=== PATIENT | female | born 1960 | race Two or more races ===

== ENCOUNTER 2020-07-18 09:57 | Outpatient (REF) | payer OTHER, SELFPAY ==
--- NOTE | 2020-07-18 10:31 | PM.OP ---
Brief Operative Note Date of Service: 07/18/20 Pre-op diagnosis: History of PTC, nontoxic multinodular goiter Post-op diagnosis: same Procedure: This procedure was explained to the patient. Alternatives, risks and benefits were discussed. Written consent was obtained. After sterile preparation of the skin, fine-needle aspiration biopsy of left mid pole thyroid nodule size 1.4 x 1.1 x 1.4 cm was performed under direct ultrasound guidance to confirm accurate needle placement. First pass was performed with a 27 gauge needle was only fluid aspiration about 0.5 mL of chocolate like call us with. Three extra passes were performed with 25 gauge needles. Sample was submitted to cytology, initial cytology reading was adequate. 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 Total of passes 5. Patient tolerated procedure well. Aftercare instructions were provided. Impression: uncomplicated fine-needle aspiration biopsy of left mid pole thyroid nodule under direct ultrasound guidance. Surgeon: Yoselyn Dia MD Anesthesia: local (Lidocaine 1 % 1ml) Estimated blood loss (mL): 0 Condition: stable Disposition: same day
[2020-07-18] MEDS: Lidocaine HCl 1 % MPF 5 ML VIAL SUBCUT (11:51)
== END 2020-07-18 09:58 | disposition home or self-care (01) ==
LOC: HO.US 09:57
PROVIDERS: Visit Provider Internal Medicine Endocrinology, Diabetes & Metabolism
DX: E04.2 Nontoxic multinodular goiter (principal)
CPT/HCPCS: 10005; 88172; 88173; 88177; 88305

== ENCOUNTER → 2021-01-07 14:50 | Outpatient (BNVA) | payer OTHER, SELFPAY | PROVIDERS: PCP Physician Assistant; Referring Provider Physician Assistant; Visit Provider Internal Medicine Endocrinology, Diabetes & Metabolism | DX: E11.65 Type 2 diabetes mellitus with hyperglycemia (principal); E11.21 Type 2 diabetes mellitus with diabetic nephropathy; E11.22 Type 2 diabetes mellitus with diabetic chronic kidney disease; N18.6 End stage renal disease; E04.2 Nontoxic multinodular goiter; Z79.4 Long term (current) use of insulin; Z85.850 Personal history of malignant neoplasm of thyroid | CPT/HCPCS: 82947; 99212 ==

== ENCOUNTER 2022-07-21 13:45 | Outpatient (REF) | payer OTHER, SELFPAY ==
--- NOTE | ~2022-07-21 | US_ITS ---
EXAMINATION: US THYROID CLINICAL INFORMATION: Nontoxic multinodular goiter. COMPARISON: Ultrasound soft tissue head/neck thyroid dated 05/09/2020 and 09/16/2017. TECHNIQUE: Linear transducer grayscale and color Doppler examination with attention to the region of the thyroid. FINDINGS: SIZE: Measurements of the solitary left thyroid lobe and nodules are given in sagittal, anteroposterior and transverse dimensions respectively. Right Thyroid Lobe: Surgically absent. Left Thyroid Lobe: 5.8 x 2.33 x 2.18 cm, volume 15.41 mL. Previously 5.76 x 2.24 x 2.47 cm, volume 16.7 mL. Parenchyma: The gland echotexture is homogeneous. Thyroid vascularity is normal. Isthmus: 0.62 cm in maximum AP dimension. Previously 0.46 cm. Estimated total number of nodules greater than or equal to 1 cm: 1. Book Jogger nodules are described as follows: 1. Location: Left mid. Size: 1.39 x 1.01 x 1.33 cm, volume 0.98 mL. Previously: 1.4 x 1.1 x 1.4 cm, volume 1.2 mL. Nodule characteristics: Composition: Mixed cystic and solid (1). Mainly cystic with thin septation. Echogenicity: Hypoechoic (2). Shape: Not taller than wide (0). Margins: Smooth (0). Echogenic Foci: None (0). ACR TI-RADS total points: 3 ACR TI-RADS category: 3 Significant change in size (>/= 20% in 2 dimensions and minimal increase of 2 mm or 50% or greater increase in volume): No Change in features: No Change in ACR TI-RADS risk category: N/A NODES: No lymphadenopathy is seen in the tissue surrounding the thyroid gland. US/US thyroid IMPRESSION: Status post right thyroidectomy. Stable left thyroid nodule with no continued follow-up of this nodule is recommended by ACR TI-RADS criteria. ACR TI-RADS RECOMMENDATION REFERENCE: * TR1 (0 point) and TR 2 (2 points): No FNA or follow up * TR3 (3 points): FNA if more than or equal to 2.5 cm in maximum dimension, followup ultrasound in 1, 3 and 5 years if 1.5 to 2.4 cm in maximum dimension. * TR4 (4-6 points): FNA if more than or equal to 1.5 cm in maximum dimension, followup ultrasound in 1, 2, 3 and 5 years if 1 to 1.4 cm in maximum dimension. * TR5 (more than or equal to 7 points): FNA if more than or equal to 1 cm in maximum dimension, followup ultrasound every year for 5 years if 0.5 to 0.9 cm in maximum dimension. * TR3, TR4 or TR5 nodules that are below the size threshold for follow up receive no follow up.
== END 2022-07-21 13:46 | disposition home or self-care (01) ==
LOC: HO.HMGCX 13:45
PROVIDERS: Visit Provider Internal Medicine Endocrinology, Diabetes & Metabolism
DX: E04.2 Nontoxic multinodular goiter (principal); E11.22 Type 2 diabetes mellitus with diabetic chronic kidney disease; N18.9 Chronic kidney disease, unspecified
CPT/HCPCS: 76536

== ENCOUNTER → 2022-07-30 15:02 | Outpatient (BNVA) | payer OTHER, SELFPAY | PROVIDERS: PCP Physician Assistant; Visit Provider Internal Medicine Endocrinology, Diabetes & Metabolism | DX: E11.22 Type 2 diabetes mellitus with diabetic chronic kidney disease (principal); E11.65 Type 2 diabetes mellitus with hyperglycemia; E11.21 Type 2 diabetes mellitus with diabetic nephropathy; I12.0 Hypertensive chronic kidney disease with stage 5 chronic kidney disease or end stage renal disease; N18.6 End stage renal disease; E78.5 Hyperlipidemia, unspecified; C73 Malignant neoplasm of thyroid gland; E89.0 Postprocedural hypothyroidism; Z79.4 Long term (current) use of insulin; Z99.2 Dependence on renal dialysis | CPT/HCPCS: 82947; 83036; 99212 ==

== ENCOUNTER → 2022-12-03 15:18 | Outpatient (BNVA) | payer MEDICAID, SELFPAY | PROVIDERS: PCP Physician Assistant; Visit Provider Internal Medicine Endocrinology, Diabetes & Metabolism | DX: E11.22 Type 2 diabetes mellitus with diabetic chronic kidney disease (principal); E11.65 Type 2 diabetes mellitus with hyperglycemia; E11.21 Type 2 diabetes mellitus with diabetic nephropathy; I12.0 Hypertensive chronic kidney disease with stage 5 chronic kidney disease or end stage renal disease; N18.6 End stage renal disease; Z85.850 Personal history of malignant neoplasm of thyroid; Z99.2 Dependence on renal dialysis; Z79.4 Long term (current) use of insulin | CPT/HCPCS: 82947; 83036; 99212 ==

== ENCOUNTER → 2023-01-28 11:40 | Outpatient (BNVA) | payer MEDICAID, SELFPAY | PROVIDERS: PCP Physician Assistant; Visit Provider Dietitian, Registered | DX: E11.22 Type 2 diabetes mellitus with diabetic chronic kidney disease (principal); N18.6 End stage renal disease | CPT/HCPCS: 97802 ==

== ENCOUNTER 2023-03-18 13:37 | Outpatient (AMB) | payer MEDICAID, SELFPAY ==
[2023-03-18 13:42] VITALS: BMI 53.1
--- NOTE | 2023-03-18 13:42 | MHC.AMNUTRGE ---
Intake VS Expanded 03/18/23 13:42 Height 4 ft 10 in Weight 254 lb 3.088 oz BMI 53.1 Intake Visit Reasons: T2DM Allergies cinacalcet [From SENSIPAR] Allergy (Unknown, Unverified 05/02/20 18:39) UNKNOWN Sensipar Allergy (Unknown, Uncoded 04/23/20 00:00) HPI Nutrition Presentation Details Pt presents for MNT for T2DM. Pt comes in with questions regarding sodium intake and low phosphorus food choices. Pt is also interested in losing weight . Pt verbalizes having elevated blood glucose > 200 after lunch. Pt reports having larger portions of starches at lunch time. Most Recent Diabetes Results: No Data to Display [facility] Medical History (Updated 01/07/21 @ 15:27 by Yoselyn Dia MD) Diabetes type 2, uncontrolled Diabetic nephropathy associated with type 2 diabetes mellitus ESRD (end stage renal disease) History of papillary adenocarcinoma of thyroid FCI (current) use of insulin Non-toxic multinodular goiter Type 2 diabetes mellitus with chronic kidney disease Family History Other Diabetes Hypertension Social History Household Members: Family Household Members Other:: Sons Alcohol intake: never Patient Tobacco Use Status: Never used Tobacco Assessment & Plan Assessment & Plan (1) Type 2 diabetes mellitus with chronic kidney disease: Code(s): E11.22 - Type 2 diabetes mellitus with diabetic chronic kidney disease Plan: Used wt: 114 kg Est kcal needs as per MSJ: 1921 (40% carb, 30% protein/fat) Est fluid needs as per 25 ml/d: 2863 (unless otherwise specified by MD Est prot per day as per 1 g/kg bw: 114 (unless otherwise specified by MD Recommend fiber intake : 8-10 g per day and gradually increaseas tolerated Recommend sodium intake per day : less than 2000 mg Educated patient on: ( R = reviewed V = verbalizes understanding N/R = needs review N/A = not applicable Food sources of carbohydrate, adequate serving sizes and its role in various health conditions: R Differences between complex carbohydrates a simple carbohydrates, role of fiber in diet: R Differences between types of fats and role in diet (mono on saturated fat fatty acids, saturated fatty acids, trans fats): R basic low fat, low fat options Food sources of sodium in salt and healthy modifications for heart health in kidney health: R , written info provided Vitamins and minerals: R Healthy plate method concept: R V Physical activity: Benefits a precaution: R Hypoglycemia protocol (rule of 15): NR Dietary prevention of Hyperglycemia: R Patient Instructions: Reduce portion of starch at lunch to 1/2 cup less - Reduzca el almidon a la hora del almuerzo por 1/2 taza menos (arroz/pasta/fabián/viandas) Choose low sodium food options (condiments with less sodium, sauces, breads,cheeses),- Escoja condimentos con menos vicki (adobos, salsas, panes, quesos) Choose grilled poultry/fish instead of breaded/fried - Escoja proteinas bajas en fosforo (claras de huevos, langostines, tuna, beatriz a la parilla , no empanados/fritos) Reduzca la frecuencia de comer comidas rapidas/fast foods Coding Level of Care Code Nutr Indiv Subseq (59076) Diagnoses Type 2 diabetes mellitus with chronic kidney disease E11.22 Time Spent (min) 30
== END 2023-03-18 14:17 | disposition home or self-care (01) ==
PROVIDERS: PCP Physician Assistant; Visit Provider Dietitian, Registered
DX: E11.22 Type 2 diabetes mellitus with diabetic chronic kidney disease (principal)

== ENCOUNTER → 2023-03-18 13:37 | Outpatient (BNVA) | payer MEDICAID, SELFPAY | PROVIDERS: PCP Physician Assistant; Visit Provider Dietitian, Registered | DX: E11.22 Type 2 diabetes mellitus with diabetic chronic kidney disease (principal); N18.9 Chronic kidney disease, unspecified | CPT/HCPCS: 97803 ==

== ENCOUNTER 2023-05-13 11:23 | Outpatient (AMB) | payer MEDICAID, SELFPAY ==
[2023-05-13 11:24] VITALS: BP 118/78; PULSE 66; BMI 53.2
--- NOTE | 2023-05-13 11:24 | MHC.OFFVIS ---
Intake Vital Signs 05/13/23 11:24 Height 4 ft 10 in Weight 254 lb 6.615 oz BMI 53.2 BP 118/78 Blood Pressure Location Rt brachial Position Sitting Pulse 66 Pulse Source Pulse Oximeter Intake Visit Reasons: DM, voicemail Intake Note: Patient present today to follow up on Type 2 Diabetes Mellitus. Last Diabetic Eye exam: 05/07/2023 Last Podiatry Visit: 05/07/2023 Random Glucose: 212 mg/dl HgA1C: 7.1% Cobol Engineer Required: Yes Cobol Engineer Language: Plastics Fab[employer]ation Supervisor Name: [id number] Information Interpreted: non-clinical & clinical Accompanied by: Self / Same As Patient Allergies cinacalcet [From SENSIPAR] Allergy (Unknown, Verified 05/13/23 11:31) UNKNOWN Sensipar Allergy (Unknown, Uncoded 05/13/23 11:31) Unknown Medication List - Last Reconciled 05/13/23 by Austin Burks MD B complex with C 20-folic acid 1 mg ([place] Caps) 1 cap PO DAILY blood sugar diagnostic (FreeStyle Lite Strips) 4 times a day carvedilol 12.5 mg PO BID cholecalciferol (vitamin D3) 50 mcg PO DAILY insulin glargine (Lantus Solostar U-100 Insulin) 25 units (0.25 mL) subcut BID insulin lispro (Humalog KwikPen (U-100) Insulin) 10 - 20 units (0.1 - 0.2 mL) subcut TID 90 days lancets (FreeStyle Lancets) 4 times a day losartan 100 mg PO DAILY losartan 25 mg PO DAILY pen needle, diabetic (BD Fern 2nd Gen Pen Needle) As directed 5 times a day HPI HPI Comments History of Present Illness Details 62 year old female, today for follow-up visit, for diabetes management in setting of ESRD. She is also being managed for micro papillary cancer She is feeling well, she has no complaints. He is on dialysis Wednesday, Wednesday and Fridays. She has DM type 2 diagnosed on 1999. She has PMH of hypertension, hyperlipidemia, and stage renal disease on hemodialysis M/W/F, secondary hyperparathyroidism, status post parathyroidectomy with transplant into the right brachioradialis muscle. 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 Osteopenia. She has all microvascular complications neuropathy , nephropathy and retinopathy. The patient is on Lantus 20 units in am, She is also on Humalog 12 units before breakfast and 16 with lunch, and 12 units with dinner. Meter download from 04/30/23-05/13/23 checking her blood sugar 4 times a day. showed an average blood sugar of 191 mg per dL. The range ar74-093 mg per dL. She is 41% in target range. And above range 56% of the time and no hypoglycemia. Pattern shows overnight hyperglycemia and after breakfast She checks blood sugars occasionally 1 hour after meals that are elevated. Her fasting blood sugars are most of the time at goal. She does have a spikes after meal particularly after breakfast. No hypoglycemia Last ophthalmology evaluation 1-2 wks a go : , pt denies retinopathy She is HD is anuric, polydipsia, denies numbness, tingling, blurred vision. She weighed 244 lb after dialysis yesterday. She had fine-needle aspiration of left nodule on 07/21/18 consistent with benign follicular nodule with cystic degeneration. 05/09/2020 US thyroid Right Thyroid Lobe: Surgically absent. No focal soft tissue or fluid collection within the right thyroidectomy bed. . Left Thyroid Lobe: 5.8 x 2.2 x 2.5 cm, volume 16.7 mL. Parenchyma: The gland echotexture is heterogeneous. Thyroid vascularity is normal. Isthmus: 0.5 cm in maximum AP dimension. RIGHT THYROID LOBE: No nodules. ISTHMUS: No nodules. LEFT THYROID LOBE: There is 1 nodule seen. 1. Location: Inferior. Size: 1.4 x 1.1 x 1.4 cm. Previously 1.2 x 0.9 x 1.0 cm Nodule characteristics: Hypoechoic nodule which contains some internal echogenicities and thin septation. No definitive color flow. NODES: No lymphadenopathy is seen in the tissue surrounding the thyroid gland. 05/11/2018 TSH 2.48 mIU per mL Free T4 1.17 ng per dL Thyroglobulin level is 7 ng per mL Antithyroglobulin antibody negative. 08/30/2019 TSH 2.71 miu/ml FT4 1.18 ng/dl TG level 6.5 TG antibodies negative LDL cholesterol direct 118 mg per dL Total cholesterol 188 mg/dL Triglycerides 169 mg/dL HDL cholesterol 33 mg/dL. 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 Absence of acromegalic features. Neck exam reveals s/p right lobectomy. No left thyroid nodules palpable. No carotid bruits present. Lungs CTA. Heart S1 S2, Reg R/R. No M/R/ G. Skin exam reveals absence of vitiligo or acanthosis nigricans. Abdominal exam reveals Soft NT/ND with NA BS. No organomegaly present. Neck Other: . Extrem Other: Visual exam of foot performed. No ulcerations or open lesions. No onchomycosis, no callouses.Pulses 2 + distally Sensation intact to monofilament exam. Vibratory sensation sensed is intact with 128 Hz tuning fork Results AMB Hemoglobin A1c AMB Hemoglobin A1c 7.1 % Last Edit by Emilee Castellanos on 05/13/23 11:44 Results Reviewed Results Reviewed: 05/13/23 11:34 Glucose, Whole Blood Routine Laboratory Last Values Glucose (Clinic) 212 mg/dL (60-115) H 05/13/23 11:34 Hgb A1c (Clinic) 7.1 % (4.0-6.0) H 05/13/23 11:37 Assessment & Plan Assessment & Plan (1) Type 2 diabetes mellitus with chronic kidney disease: Code(s): E11.22 - Type 2 diabetes mellitus with diabetic chronic kidney disease Plan: This 62-year-old female with history of type 2 diabetes in the setting of end-stage renal disease on hemodialysis being treated with basal- bolus insulin good improved glycemic control and known microvascular complications namely end-stage renal disease and retinopathy.HBAIC may not be reflective of control in ESRD Plan is to continue the current management. Difficult to adjust insulin regimen without sensor . Start and Dexcom G7 and then will adjust insulin regimen accordingly (2) History of papillary adenocarcinoma of thyroid: Code(s): Z85.850 - Personal history of malignant neoplasm of thyroid Plan: Status post right lobectomy the presence of micro papillary cancer. Status post FNA of left thyroid nodule with benign cytology. Recent ultrasound shows stability in the size of the nodules left lobe. Patient appears clinically and biochemically euthyroid. Plan is to continue the current treatment Orders: Orders AMB Hemoglobin A1c Today E11.22 - Type 2 diabetes mellitus with diabetic chronic kidney disease Medications: New blood-glucose sensor (Dexcom G7 Sensor device) As directed change every 10 days 3 ea 5RF Coding Level of Care Code Est Pt Level 4 (62857) Diagnoses Type 2 diabetes mellitus with chronic kidney disease E11.22 History of papillary adenocarcinoma of thyroid Z85.850
[2023-05-13 11:39] LABS: Glucose, Whole Blood 212 mg/dL (60-115)
--- NOTE | 2023-05-13 12:57 | AM.OFFVISNUR ---
Intake Vital Signs 05/13/23 11:24 Height 4 ft 10 in Weight 254 lb 6.615 oz BMI 53.2 BP 118/78 Blood Pressure Location Rt brachial Position Sitting Pulse 66 Pulse Source Pulse Oximeter Intake Visit Reasons: DM, voicemail Allergies cinacalcet [From SENSIPAR] Allergy (Unknown, Verified 05/13/23 11:31) UNKNOWN Sensipar Allergy (Unknown, Uncoded 05/13/23 11:31) Unknown Medication List - Last Reconciled 05/13/23 by Austin Burks MD B complex with C 20-folic acid 1 mg ([place] Caps) 1 cap PO DAILY blood sugar diagnostic (FreeStyle Lite Strips) 4 times a day carvedilol 12.5 mg PO BID cholecalciferol (vitamin D3) 50 mcg PO DAILY insulin glargine (Lantus Solostar U-100 Insulin) 25 units (0.25 mL) subcut BID insulin lispro (Humalog KwikPen (U-100) Insulin) 10 - 20 units (0.1 - 0.2 mL) subcut TID 90 days lancets (FreeStyle Lancets) 4 times a day losartan 100 mg PO DAILY losartan 25 mg PO DAILY pen needle, diabetic (BD Fern 2nd Gen Pen Needle) As directed 5 times a day Nursing Note I met with the patient after Dr. Burks finished the visit to educate her on how to apply the Dexcom G7. We discussed the proper cleansing of the skin, how to apply SkinTac, insertion of the sensor and how to initiate sensor warm up. We discussed that she can bathe with it on and that it is to be changed every 10 days. We applied her first sensor and initiated the warm up. Patient will follow up with Yesenia, our Project Management Manager, before her next visit with Dr. Burks. Patient provided verbal teach-back and says she will call with further questions. Results AMB Hemoglobin A1c AMB Hemoglobin A1c 7.1 % Last Edit by Emilee Castellanos on 05/13/23 11:44 Coding Diagnoses Type 2 diabetes mellitus with chronic kidney disease E11.22 History of papillary adenocarcinoma of thyroid Z85.850 Assessment & Plan Assessment & Plan (1) Type 2 diabetes mellitus with chronic kidney disease: Code(s): E11.22 - Type 2 diabetes mellitus with diabetic chronic kidney disease (2) History of papillary adenocarcinoma of thyroid: Code(s): Z85.850 - Personal history of malignant neoplasm of thyroid Orders: Orders AMB Hemoglobin A1c Today E11.22 - Type 2 diabetes mellitus with diabetic chronic kidney disease Medications: New blood-glucose sensor (Dexcom G7 Sensor device) As directed change every 10 days 3 ea 5RF
== END 2023-05-13 13:31 | disposition home or self-care (01) ==
PROVIDERS: PCP Physician Assistant; Visit Provider Internal Medicine Endocrinology, Diabetes & Metabolism
DX: E11.22 Type 2 diabetes mellitus with diabetic chronic kidney disease (principal); Z85.850 Personal history of malignant neoplasm of thyroid
CPT/HCPCS: 99214

== ENCOUNTER → 2023-05-13 11:23 | Outpatient (BNVA) | payer MEDICAID, SELFPAY | PROVIDERS: Visit Provider Internal Medicine Endocrinology, Diabetes & Metabolism | DX: E11.22 Type 2 diabetes mellitus with diabetic chronic kidney disease (principal); N18.6 End stage renal disease; Z85.850 Personal history of malignant neoplasm of thyroid | CPT/HCPCS: 82947; 83036; 99212 ==

== ENCOUNTER 2023-06-15 11:59 | Outpatient (AMB) | payer MEDICAID, SELFPAY ==
--- NOTE | 2023-06-15 12:51 | MHC.AMNUTRGE ---
Intake Intake Visit Reasons: t2dm Allergies cinacalcet [From SENSIPAR] Allergy (Unknown, Verified 05/13/23 11:31) UNKNOWN Sensipar Allergy (Unknown, Uncoded 05/13/23 11:31) Unknown HPI Nutrition Presentation Details Pt presents for MNT f/u for T2DM on hemodialysis Pt reports doing well, having a better understanding of food portion and choices since utilizing glucose sensor. Pt reports needing review on treatment of low blood glucose level Most Recent Diabetes Results: No Data to Display [facility] Medical History (Updated 01/07/21 @ 15:27 by Yoselyn Dia MD) History of papillary adenocarcinoma of thyroid snf (current) use of insulin Diabetic nephropathy associated with type 2 diabetes mellitus ESRD (end stage renal disease) Type 2 diabetes mellitus with chronic kidney disease Diabetes type 2, uncontrolled Non-toxic multinodular goiter Family History Other Diabetes Hypertension Social History Household Members: Family Household Members Other:: Sons Alcohol intake: never Patient Tobacco Use Status: Never used Tobacco Assessment & Plan Assessment & Plan (1) Type 2 diabetes mellitus with chronic kidney disease: Code(s): E11.22 - Type 2 diabetes mellitus with diabetic chronic kidney disease Plan: Used wt: 114 kg Est kcal needs as per MSJ: 1921 (40% carb, 30% protein/fat) Est fluid needs as per 25 ml/d: 2863 (unless otherwise specified by MD Est prot per day as per 1 g/kg bw: 114 (unless otherwise specified by MD Recommend fiber intake : 8-10 g per day and gradually increaseas tolerated Recommend sodium intake per day : less than 2000 mg Educated patient on: ( R = reviewed V = verbalizes understanding N/R = needs review N/A = not applicable Food sources of carbohydrate, adequate serving sizes and its role in various health conditions: R Differences between complex carbohydrates a simple carbohydrates, role of fiber in diet: R Differences between types of fats and role in diet (mono on saturated fat fatty acids, saturated fatty acids, trans fats): R basic low fat, low fat options Food sources of sodium in salt and healthy modifications for heart health in kidney health: R , written info provided Vitamins and minerals: R Healthy plate method concept: R V Physical activity: Benefits a precaution: R Hypoglycemia protocol (rule of 15): R, V- written information provided Dietary prevention of Hyperglycemia: R Patient Instructions: Carry glucose tablets or glucose gel or applesauce to treat low blood sugar , blood sugar level below 70 by following rule of 15. Contact your doctor and notify of low blood sugar level for further assessment . Coding Level of Care Code Nutr Indiv Subseq (11304) Diagnoses Type 2 diabetes mellitus with chronic kidney disease E11.22 Time Spent (min) 20
== END 2023-06-15 12:54 | disposition home or self-care (01) ==
PROVIDERS: PCP Physician Assistant; Visit Provider Dietitian, Registered
DX: E11.22 Type 2 diabetes mellitus with diabetic chronic kidney disease (principal)

== ENCOUNTER → 2023-06-15 11:59 | Outpatient (BNVA) | payer MEDICAID, SELFPAY | PROVIDERS: PCP Physician Assistant; Visit Provider Dietitian, Registered | DX: E11.22 Type 2 diabetes mellitus with diabetic chronic kidney disease (principal); N18.6 End stage renal disease; Z79.4 Long term (current) use of insulin; Z99.2 Dependence on renal dialysis | CPT/HCPCS: 97803 ==

== ENCOUNTER 2023-11-11 13:57 | Outpatient (AMB) | payer MEDICAID, SELFPAY ==
--- NOTE | 2023-11-11 14:06 | A.OFFVIS_ITS ---
Intake VS Expanded 11/11/23 14:07 Height 4 ft 10 in Weight 250 lb 10.649 oz BMI 52.4 Intake Visit Reasons: DM/CONFIRMED Allergies cinacalcet [From SENSIPAR] Allergy (Unknown, Verified 05/13/23 11:31) UNKNOWN Sensipar Allergy (Unknown, Uncoded 05/13/23 11:31) Unknown HPI Nutrition Presentation Details Pt presents for MNT for T2DM on hemodialysis. 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 Diabetic nephropathy associated with type 2 diabetes mellitus ESRD (end stage renal disease) Type 2 diabetes mellitus with chronic kidney disease Diabetes type 2, uncontrolled Non-toxic multinodular goiter Family History Other Diabetes Hypertension Social History Household Members: Family Household Members Other:: Sons Alcohol intake: never Patient Tobacco Use Status: Never used Tobacco Assessment & Plan Assessment & Plan (1) Type 2 diabetes mellitus with chronic kidney disease: Code(s): E11.22 - Type 2 diabetes mellitus with diabetic chronic kidney disease Plan: Used wt: 114 kg Est kcal needs as per MSJ: 1921 (40% carb, 30% protein/fat) Est fluid needs as per 25 ml/d: 2863 (unless otherwise specified by MD Est prot per day as per 1 g/kg bw: 114 (unless otherwise specified by MD Recommend fiber intake : 8-10 g per day and gradually increaseas tolerated Recommend sodium intake per day : less than 2000 mg Educated patient on: ( R = reviewed V = verbalizes understanding N/R = needs review N/A = not applicable * Food sources of carbohydrate, adequate serving sizes and its role in various health conditions: R * Differences between complex carbohydrates a simple carbohydrates, role of fiber in diet: R * Differences between types of fats and role in diet (mono on saturated fat fatty acids, saturated fatty acids, trans fats): R basic low fat, low fat options * Food sources of sodium in salt and healthy modifications for heart health in kidney health: R , written info provided * Vitamins and minerals: R * Healthy plate method concept: R V * Physical activity: Benefits a precaution: R * Hypoglycemia protocol (rule of 15): R, V- written information provided * Dietary prevention of Hyperglycemia: R Patient Instructions: Follow low sodium food concepts - see written info as reference Aim at having 3 fruits per day in place of starches/pastries for low sodium food Coding Level of Care Code Nutr Indiv Subseq (54174) Diagnoses Type 2 diabetes mellitus with chronic kidney disease E11.22 Time Spent (min) 15
[2023-11-11 14:07] VITALS: BMI 52.4
== END 2023-11-11 14:33 | disposition home or self-care (01) ==
PROVIDERS: PCP Physician Assistant; Visit Provider Dietitian, Registered
DX: E11.22 Type 2 diabetes mellitus with diabetic chronic kidney disease (principal)

== ENCOUNTER → 2023-11-11 13:57 | Outpatient (BNVA) | payer MEDICAID, SELFPAY | PROVIDERS: PCP Physician Assistant; Visit Provider Dietitian, Registered | DX: I12.9 Hypertensive chronic kidney disease with stage 1 through stage 4 chronic kidney disease, or unspecified chronic kidney disease (principal); N18.9 Chronic kidney disease, unspecified; Z99.2 Dependence on renal dialysis | CPT/HCPCS: 97803 ==

== ENCOUNTER 2023-12-07 15:40 | Outpatient (AMB) | payer MEDICAID, SELFPAY ==
--- NOTE | 2023-12-07 16:31 | MHC.AMDMED ---
Intake Intake Visit Reasons: T2DM Pneumatic Tube Fitter Required: Yes Pneumatic Tube Fitter Language: Conservation Enforcement Officer Name: Niki [facility] [place] Information Interpreted: non-clinical & clinical Allergies cinacalcet [From SENSIPAR] Allergy (Unknown, Verified 05/13/23 11:31) UNKNOWN Sensipar Allergy (Unknown, Uncoded 05/13/23 11:31) Unknown HPI Comprehensive Diabetes Asmnt Most Recent Diabetes Results: No Data to Display [facility] Medical History (Updated 01/07/21 @ 15:27 by Yoselyn Dia MD) History of papillary adenocarcinoma of thyroid residential (current) use of insulin Diabetic nephropathy associated with type 2 diabetes mellitus ESRD (end stage renal disease) Type 2 diabetes mellitus with chronic kidney disease Diabetes type 2, uncontrolled Non-toxic multinodular goiter Family History Other Diabetes Hypertension Social History Household Members: Family Household Members Other:: Sons Alcohol intake: never Patient Tobacco Use Status: Never used Tobacco Assessment & Plan Assessment & Plan (1) Type 2 diabetes mellitus with chronic kidney disease: Code(s): E11.22 - Type 2 diabetes mellitus with diabetic chronic kidney disease Plan: Patient at visit to set up an insert Dexcom G7 Instructed patient sensors water proof you can shower, or swim do not submerge sensor in water for over 30 minutes Is sensor falls off cannot put back in you need to replace sensor, customer service number given to patient for sensor replacement Sensor placed on the right arm Patient left visit with sensor in warmup Learning objectives: The patient was provided with verbal and written education on the following topics as outlined below. Blood glucose monitoring When/how often to test Target blood sugar ranges Freestyle meter Introduction to Nutrition Importance of healthy diet in managing DM Diet is personalized to individual preference Review patient?s regular diet/food preferences Who prepares meals/does food shopping/ Dining out?/ Barriers? How diet effects glucose Eating 3 balanced meals a day with small, healthy snacks between meals Review food groups Carbohydrates: What is a carbohydrate/Which food/food groups are considered carbohydrates Effect of carbohydrates on blood glucose Portion sizes Reading food labels Basic carb counting (if applicable per nursing assessment) Plate method Meal planning Recommendations: Follow plate method, consistent carbs and read nutritional labels. Smart Goal: Patient will use rule of 15 to treat hypoglycemia Educational Materials: The patient was provided with the following written educational materials: Planning Healthy Meals Handout Patient Response to instructions: Comprehension of Instructions: Fair Readiness to make changes: Contemplation How confident they feel about making changes: Positive Reviewed how to interpret trend arrows Reminded patient that to check finger sticks if symptoms do not match sensor reading. Discussed lag time between finger stick and sensor data.? Instructed patient she should always keep blood glucometer for backup testing if needed Reviewed delay of CGM from fingersticks Reminded pt that if symptoms do not match sensor still needs to check fingersticks. With specialty finishing utility person in 2 weeks Patient Instructions: Instrucciones para el paciente: CGM proporciona informaci?n sobre el control de la glucosa en kelli a lo ankur del d?a, incluidas la hiperglucemia y la hipoglucemia. Contin?e controlando la glucosa en kelli seg?n las instrucciones. Siga las pautas de nutrici?n proporcionadas. Informe cualquier molestia de inmediato al proveedor de atenci?n m?dica. Mantente maciej hidratado. Puede ba?arse, ducharse, nadar y hacer ejercicio mientras usa el sensor de glucosa. No sumerja el sensor de glucosa en agua jacklyn m?s de 30 minutos. Retire el sensor para goldy resonancia magn?romeo o goldy tomograf?a computarizada. Evite la m?quina de migdalia X en los aeropuertos: retire el sensor o solicite la varita Coding Level of Care Code Est Pt Level 1 (19336) Diagnoses Type 2 diabetes mellitus with chronic kidney disease E11.22
== END 2023-12-07 16:38 | disposition home or self-care (01) ==
PROVIDERS: PCP Physician Assistant; Visit Provider Registered Nurse Diabetes Educator
DX: E11.22 Type 2 diabetes mellitus with diabetic chronic kidney disease (principal)

== ENCOUNTER → 2023-12-07 15:40 | Outpatient (BNVA) | payer MEDICAID, SELFPAY | PROVIDERS: PCP Physician Assistant; Visit Provider Registered Nurse Diabetes Educator | DX: E11.22 Type 2 diabetes mellitus with diabetic chronic kidney disease (principal); N18.9 Chronic kidney disease, unspecified; Z71.89 Other specified counseling | CPT/HCPCS: 99211 ==

== ENCOUNTER 2023-12-21 14:03 | Outpatient (AMB) | payer MEDICAID, SELFPAY ==
--- NOTE | 2023-12-21 14:24 | A.OFFVIS_ITS ---
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 Diabetic nephropathy associated with type 2 diabetes mellitus ESRD (end stage renal disease) Type 2 diabetes mellitus with chronic kidney disease Diabetes type 2, uncontrolled Non-toxic multinodular goiter Family History Other Diabetes Hypertension Social History Household Members: Family Household Members Other:: Sons Alcohol intake: never Patient Tobacco Use Status: Never used Tobacco Assessment & Plan Assessment & Plan (1) Diabetic nephropathy associated with type 2 diabetes mellitus: Code(s): E11.21 - Type 2 diabetes mellitus with diabetic nephropathy Plan: Learning objectives: The patient was provided with verbal and written education on the following topics as outlined below. Assess patient education level/literacy/barriers Patient questions/concerns patient has been wearing Dexcom G7 sensor for approximately 2 weeks The last 14 days patient's average glucose within 191 mg/dL Patient above target 58% Patient at target 42% Patient below target 0% Patient did report 1 night about an hour and half after supper her glucose had still been elevated so she gave herself extra Humalog, at approximately 04:00 she woke up with glucose of 62 mg/dL Reviewed with patient action of Humalog, and Lantus instructed patient not to give 2 doses of Humalog within 3 hours of each other. Patient did request sliding scale, message sent to Dr. Burks to develop patient's sliding scale The patient met all learning objectives and was able to verbalize understanding and provide teach back of education topics discussed . The patient was provided with the opportunity to ask questions and all questions were answered. Topics covered in today?s session included: Medications (If applicable) * Name of medication? * Dosing/administration instructions? * Mechanism of action? * Potential side effects? * Potential adverse reaction and appropriate treatment? * Review onset, peak, duration Assess for concerns re: insurance coverage, cost, barriers to compliance Insulin/Injectables (If applicable) * Storage/care of insulin?? * Injection sites? * Site rotation? * Onset, peak, duration * Drawing up insulin? * Injecting insulin/other injectables? * Sharps disposal Continuous blood glucose monitoring (if applicable) Hypoglycemia and Hyperglycemia * Signs and symptoms? * Causes?? * Treatment? * Preventing hypoglycemia? * When to seek medical attention * Blood glucose targets and how you feel when your blood glucose is in and out of your target ranges. * Monitoring and knowing your A1C. * What can make blood glucose go up and down and preventing high and low blood glucose. * Review of blood sugar targets in expected goal range and outside of expected goal range. * Problem solving and preventing hyper/hypoglycemia. * Sick day management of diabetes. * Using blood sugar results in decision making process in managing diabetes. ?Patient was receptive to information provided and participated in the discussion. Asked?appropriate questions and demonstrated good understanding of the topics discussed.? ? Educational Materials: The patient was provided with the following written educational materials: Rule of 15 handout given in Sammarinese Patient Response to instructions: Comprehension of Instructions: Good Readiness to make changes:? Contemplative How confident they feel about making changes: Positive Patient Instructions: Cada chris 2 dosis de Humalog con un intervalo de 3 horas entre s?. Utilice la tori del 15 para tratar cualquier hipoglucemia. Seguimiento con enfermera de Educaci?n en Diabetes en 1 mes Coding Level of Care Code Est Pt Level 1 (00020) Diagnoses Diabetic nephropathy associated with type 2 diabetes mellitus E11.21
== END 2023-12-21 14:51 | disposition home or self-care (01) ==
PROVIDERS: PCP Physician Assistant; Visit Provider Registered Nurse Diabetes Educator
DX: E11.21 Type 2 diabetes mellitus with diabetic nephropathy (principal)

== ENCOUNTER → 2023-12-21 14:03 | Outpatient (BNVA) | payer MEDICAID, SELFPAY | PROVIDERS: PCP Physician Assistant; Visit Provider Registered Nurse Diabetes Educator | DX: E11.21 Type 2 diabetes mellitus with diabetic nephropathy (principal) | CPT/HCPCS: 99211 ==

== ENCOUNTER 2024-01-25 13:29 | Outpatient (AMB) | payer MEDICAID, SELFPAY ==
--- NOTE | 2024-01-25 14:06 | MHC.AMDMED ---
Intake Intake Visit Reasons: 60 min, insulin plan Lean Process Deployment Consultant Required: Yes Lean Process Deployment Consultant Language: Juvenile Corrections Officer Name: Niki Allergies cinacalcet [From SENSIPAR] Allergy (Unknown, Verified 05/13/23 11:31) UNKNOWN Sensipar Allergy (Unknown, Uncoded 05/13/23 11:31) Unknown HPI Comprehensive Diabetes Asmnt Most Recent Diabetes Results: No Data to Display [facility] Medical History (Updated 01/07/21 @ 15:27 by Yoselyn Dia MD) History of papillary adenocarcinoma of thyroid shelter (current) use of insulin Diabetic nephropathy associated with type 2 diabetes mellitus ESRD (end stage renal disease) Type 2 diabetes mellitus with chronic kidney disease Diabetes type 2, uncontrolled Non-toxic multinodular goiter Family History Other Diabetes Hypertension Social History Household Members: Family Household Members Other:: Sons Alcohol intake: never Patient Tobacco Use Status: Never used Tobacco Assessment & Plan Assessment & Plan (1) Diabetic nephropathy associated with type 2 diabetes mellitus: Code(s): E11.21 - Type 2 diabetes mellitus with diabetic nephropathy Plan: Personal Continuous Glucose Monitor: Patients CGM information reviewed Reviewed patient's sensor data: Hypoglycemia: ? 0% Hyperglycemia:? 58% Time in Range:? 42% Average glucose for the last 2 weeks?203 mg/dL Patient is having postprandial hyperglycemia after lunch and throughout the evening New sliding scale was mailed to patient's home address however patient denies ever receiving it Copies sliding scale given at today's visit Reviewed with patient how to use sliding scale, and rule of 15s to treat hypoglycemia Reviewed target glucose numbers, patient is overdue for A1c but coming appointment with Dr. Burks in 02/2024 Patient also given carbohydrate list, and target goal handout in Georgian Reviewed how to interpret trend arrows Reminded patient that to check finger sticks if symptoms do not match sensor reading. Discussed lag time between finger stick and sensor data.? Patient able to insert sensor independently at home without issue.? Patient will follow-up with focuser in 2 months Use a Humalog scale before meals 81-150 8 units 151-200 10 units 201-250 12 units >250 14 units Portions of this note were created using voice recognition software, please excuse any words or phrases that may have been misinterpreted. Patient Instructions: B?scula Humalog antes de las comidas. 81-150 isrrael 8 unidades 151-200 isrrael 10 unidades 201-250 isrrael 12 unidades M?s de 250 tomar14 unidades Coding Level of Care Code Est Pt Level 1 (39249) Diagnoses Diabetic nephropathy associated with type 2 diabetes mellitus E11.21
== END 2024-01-25 14:10 | disposition home or self-care (01) ==
PROVIDERS: PCP Physician Assistant; Visit Provider Registered Nurse Diabetes Educator
DX: E11.21 Type 2 diabetes mellitus with diabetic nephropathy (principal)

== ENCOUNTER → 2024-01-25 13:29 | Outpatient (BNVA) | payer MEDICAID, SELFPAY | PROVIDERS: PCP Physician Assistant; Visit Provider Registered Nurse Diabetes Educator | DX: E11.21 Type 2 diabetes mellitus with diabetic nephropathy (principal) | CPT/HCPCS: 99211 ==

== ENCOUNTER 2024-02-10 12:40 | Outpatient (AMB) | payer MEDICAID, SELFPAY ==
[2024-02-10 12:57] VITALS: BMI 52.3
--- NOTE | 2024-02-10 12:57 | MHC.AMNUTRGE ---
VS Expanded 02/10/24 12:57 Height 4 ft 10 in Weight 250 lb 7.122 oz BMI 52.3 Intake Visit Reasons: T2DM/LVM Allergies cinacalcet [From SENSIPAR] Allergy (Unknown, Verified 05/13/23 11:31) UNKNOWN Sensipar Allergy (Unknown, Uncoded 05/13/23 11:31) Unknown Nutrition Presentation Details: Pt presents for MNT f/u for T2DM Pt reports needing review on reading food labels BS Monitoring Most Recent Diabetes Results: No Data to Display [facility] Medical History (Updated 01/07/21 @ 15:27 by Yoselyn Dia MD) History of papillary adenocarcinoma of thyroid half-way (current) use of insulin Diabetic nephropathy associated with type 2 diabetes mellitus ESRD (end stage renal disease) Type 2 diabetes mellitus with chronic kidney disease Diabetes type 2, uncontrolled Non-toxic multinodular goiter Family History Other Diabetes Hypertension Social History Household Members: Family Household Members Other:: Sons Alcohol intake: never Patient Tobacco Use Status: Never used Tobacco Assessment & Plan Assessment & Plan (1) Type 2 diabetes mellitus with chronic kidney disease: Code(s): E11.22 - Type 2 diabetes mellitus with diabetic chronic kidney disease Category: Medical Plan: Used wt: 114 kg Est kcal needs as per MSJ: 1921 (40% carb, 30% protein/fat) Est fluid needs as per 25 ml/d: 2863 (unless otherwise specified by Est prot per day as per 1 g/kg bw: 114 (unless otherwise specified by MD Recommend fiber intake : 8-10 g per day and gradually increaseas tolerated Recommend sodium intake per day : less than 2000 mg Educated patient on: ( R = reviewed V = verbalizes understanding N/R = needs review N/A = not applicable Food sources of carbohydrate, adequate serving sizes and its role in various health conditions: R Differences between complex carbohydrates a simple carbohydrates, role of fiber in diet: R Differences between types of fats and role in diet (mono on saturated fat fatty acids, saturated fatty acids, trans fats): R basic low fat, low fat options Food sources of sodium in salt and healthy modifications for heart health in kidney health: R , written info provided Vitamins and minerals: R Healthy plate method concept: R V Physical activity: Benefits a precaution: R Hypoglycemia protocol (rule of 15): R, V- written information provided Dietary prevention of Hyperglycemia: R Patient Instructions: Have a salad with lean protein at lunch time 3 times a week Reduce on high salt/sodium foods - read food label, limiting sodium for the day to less than 1800 mg or as specified by your specialty finishing utility person Coding Level of Care Code Nutr Indiv Subseq (42916) Diagnoses Type 2 diabetes mellitus with chronic kidney disease E11.22 Time Spent (min) 20
== END 2024-02-10 13:37 | disposition home or self-care (01) ==
PROVIDERS: PCP Physician Assistant; Visit Provider Dietitian, Registered
DX: E11.22 Type 2 diabetes mellitus with diabetic chronic kidney disease (principal)

== ENCOUNTER → 2024-02-10 12:40 | Outpatient (BNVA) | payer MEDICAID, SELFPAY | PROVIDERS: PCP Physician Assistant; Visit Provider Dietitian, Registered | DX: E11.65 Type 2 diabetes mellitus with hyperglycemia (principal); E11.21 Type 2 diabetes mellitus with diabetic nephropathy; E11.22 Type 2 diabetes mellitus with diabetic chronic kidney disease; N18.6 End stage renal disease; Z71.3 Dietary counseling and surveillance | CPT/HCPCS: 97803 ==

== ENCOUNTER 2024-03-16 13:03 | Outpatient (AMB) | payer MEDICAID, SELFPAY ==
--- NOTE | 2024-03-16 13:07 | A.OFFVIS_ITS ---
Vital Signs 03/16/24 13:11 Height 4 ft 10 in Weight 244 lb 11.41 oz BMI 51.1 BP 116/86 Blood Pressure Location Rt brachial Pulse 65 Pulse Source Pulse Oximeter Intake Visit Reasons: DM/LVM Intake Note: Patient presents today to establish treatment for Type 2 Diabetes Mellitus: Last Diabetic Eye exam: 02/14/2024, No sign of diabetic retinopathy Last Podiatry Exam: Does not see a Equal Employment Opportunity Officer Most recent HbA1c: 7.1%, 03/16/2024 Random Glucose- 143 mg/dL, Today Dental Technician Required: Yes Dental Technician Language: Director Of Vendor Management Services: Dental Technician Present Dental Technician Name: [facility] [place] Dental Technician Information Interpreted: non-clinical & clinical Accompanied by: Self / Same As Patient Allergies cinacalcet [From SENSIPAR] Allergy (Unknown, Verified 03/16/24 13:08) UNKNOWN Sensipar Allergy (Unknown, Uncoded 03/16/24 13:08) Unknown HPI Comments Details: 63 year old female, today for follow-up visit, for diabetes management in setting of ESRD. She is also being managed for micro papillary cancer She is feeling well, she has no complaints. She is on dialysis Wednesday, Wednesday and Fridays. She has DM type 2 diagnosed on 1999. She has PMH of hypertension, hyperlipidemia, and stage renal disease on h emodialysis M/W/F, secondary hyperparathyroidism, status post parathyroidectomy with transplant into the right brachioradialis muscle. 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 Osteopenia. She has all microvascular complications neuropathy , nephropathy and retinopathy. Current medications Lantus 22 unit Humalog scale before meals 81-150 8 units 151-200 10 units 201-250 12 units >250 14 units she typically adds 2-4 units later in the da No hypoglycemia Last ophthalmology evaluation uptodate , pt denies retinopathy She is HD is anuric, polydipsia, denies numbness, tingling, blurred vision. she has podiatry scheduled this week, She had fine-needle aspiration of left nodule on 07/21/18 consistent with benign follicular nodule with cystic degeneration. 05/09/2020 US thyroid Right Thyroid Lobe: Surgically absent. No focal soft tissue or fluid collection within the right thyroidectomy bed. . Left Thyroid Lobe: 5.8 x 2.2 x 2.5 cm, volume 16.7 mL. Parenchyma: The gland echotexture is heterogeneous. Thyroid vascularity is normal. Isthmus: 0.5 cm in maximum AP dimension. RIGHT THYROID LOBE: No nodules. ISTHMUS: No nodules. LEFT THYROID LOBE: There is 1 nodule seen. 1. Location: Inferior. Size: 1.4 x 1.1 x 1.4 cm. Previously 1.2 x 0.9 x 1.0 cm Nodule characteristics: Hypoechoic nodule which contains some internal echogenicities and thin septation. No definitive color flow. NODES: No lymphadenopathy is seen in the tissue surrounding the thyroid gland. 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 Diabetic nephropathy associated with type 2 diabetes mellitus ESRD (end stage renal disease) Type 2 diabetes mellitus with chronic kidney disease Diabetes type 2, uncontrolled Non-toxic multinodular goiter Family History Other Diabetes Hypertension Social History Household Members: Family Household Members Other:: Sons Alcohol intake: never Patient Tobacco Use Status: Never used Tobacco Physical Exam Vital Signs: Last Vital Signs Pulse 65 03/16/24 13:11 BP 116/86 03/16/24 13:11 BMI result Body Mass Index 51.1 Neck Other: no masses of adenopathy Neck: Yes normal visual inspection Resp Effort & Inspection: normal respiratory effort Extrem Other: no edema exam deferred seeing pod tomorrow. Results AMB Hemoglobin A1c AMB Hemoglobin A1c 7.1 % Last Edit by VINICIUS Ortega on 03/16/24 13:29 Results Reviewed Results Reviewed: Laboratory Last Values Glucose (Clinic) 143 mg/dL (60-115) H 03/16/24 13:20 Hgb A1c (Clinic) 7.1 % (4.0-6.0) H 03/16/24 13:24 Assessment & Plan Assessment & Plan (1) Type 2 diabetes mellitus with chronic kidney disease: Code(s): E11.22 - Type 2 diabetes mellitus with diabetic chronic kidney disease Category: Medical Plan: Lantus 22 unit-> Tresiba 22 units for more consistent coverage of basal Humalog scale before meals 81-150 10 units 151-200 12 units 201-250 14 units >250 16units SHe was asked to call our office if running high or low directions written given in nepali Orders: Orders Lipid Panel Today E11.21 - Type 2 diabetes mellitus with diabetic nephropathy Thyroid Stimulating Hormone Today E11.21 - Type 2 diabetes mellitus with diabetic nephropathy Creatinine Urine Today E11.21 - Type 2 diabetes mellitus with diabetic nephropathy TSH reflex Free T4 Today E11.21 - Type 2 diabetes mellitus with diabetic nephropathy AMB Hemoglobin A1c Today E11.9 - Type 2 diabetes mellitus without complications Comprehensive Met. Panel Today E11.21 - Type 2 diabetes mellitus with diabetic nephropathy Microalbumin, Random (w Creat) Today E11.21 - Type 2 diabetes mellitus with diabetic nephropathy Medications: New insulin degludec (Tresiba FlexTouch U-200 insulin) 22 units (0.11 mL) subcut DAILY 30 days 3.3 mL 0RF Refilled blood-glucose sensor ([employer] G7 Sensor device) As directed change every 10 days 3 ea 5RF Discontinued insulin glargine (Lantus Solostar U-100 Insulin) Discontinued Reason: Doctor's Order 25 units (0.25 mL) subcut BID 15 mL 5RF Coding Level of Care Code Est Pt Level 4 (36796) Complex EM visit Add On G2211 Diagnoses Type 2 diabetes mellitus with chronic kidney disease E11.22 Time Spent (min) 30 Comment chart review, face to face and documenting
[2024-03-16 13:11] VITALS: BP 116/86; PULSE 65; BMI 51.1
[2024-03-16 13:25] LABS: Glucose, Whole Blood 143 mg/dL (60-115)
== END 2024-03-16 13:48 | disposition home or self-care (01) ==
PROVIDERS: PCP Physician Assistant; Visit Provider Nurse Practitioner Adult Health
DX: E11.22 Type 2 diabetes mellitus with diabetic chronic kidney disease (principal)
CPT/HCPCS: 99214

== ENCOUNTER → 2024-03-16 13:03 | Outpatient (BNVA) | payer MEDICAID, SELFPAY | PROVIDERS: PCP Physician Assistant; Visit Provider Nurse Practitioner Adult Health | DX: E11.22 Type 2 diabetes mellitus with diabetic chronic kidney disease (principal); E11.21 Type 2 diabetes mellitus with diabetic nephropathy; E11.65 Type 2 diabetes mellitus with hyperglycemia; I12.0 Hypertensive chronic kidney disease with stage 5 chronic kidney disease or end stage renal disease; N18.6 End stage renal disease; M85.80 Other specified disorders of bone density and structure, unspecified site; C73 Malignant neoplasm of thyroid gland; E89.0 Postprocedural hypothyroidism; Z99.2 Dependence on renal dialysis; Z79.4 Long term (current) use of insulin | CPT/HCPCS: 82947; 83036; 99212 ==

== ENCOUNTER 2024-03-28 09:39 | Outpatient (AMB) | payer MEDICAID, SELFPAY ==
--- NOTE | 2024-03-28 10:24 | A.OFFVIS_ITS ---
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 Diabetic nephropathy associated with type 2 diabetes mellitus ESRD (end stage renal disease) Type 2 diabetes mellitus with chronic kidney disease Diabetes type 2, uncontrolled Non-toxic multinodular goiter Family History Other Diabetes Hypertension Social History Household Members: Family Household Members Other:: Sons Alcohol intake: never Patient Tobacco Use Status: Never used Tobacco Assessment & Plan Assessment & Plan (1) Diabetic nephropathy associated with type 2 diabetes mellitus: Code(s): E11.21 - Type 2 diabetes mellitus with diabetic nephropathy Plan: Personal Continuous Glucose Monitor: Patients CGM information reviewed Reviewed patient's sensor data: Hypoglycemia: ? 0% Hyperglycemia:? 51% Time in Range:? 49% Average glucose for the last 2 weeks? 191 mg/dL Patient's last A1c on 03/16/2024 7.1%, glucose remained stable from last A1c Patient is experiencing pattern of hyperglycemia starting approximately 3pm to 1am Patient reports she has been reducing her NovoLog dose in the evenings because she is concerned about low blood sugars overnight an in the a.m. when she wakes up. Reviewed with patient action of NovoLog, and her basal insulin Tresiba. Asked patient to consistently follow NovoLog sliding scale, then we can determine if sliding scale needs to be adjusted Patient agreed with plan Reviewed how to interpret trend arrows Reminded patient that to check finger sticks if symptoms do not match sensor reading. Discussed lag time between finger stick and sensor data.? Patient able to insert sensor independently at home without issue.? Portions of this note were created using voice recognition software, please excuse any words or phrases that may have been misinterpreted. Patient Instructions: Follow-up with manager decision support in 1 month Coding Level of Care Code Est Pt Level 1 (31743) Diagnoses Diabetic nephropathy associated with type 2 diabetes mellitus E11.21
== END 2024-03-28 10:32 | disposition home or self-care (01) ==
PROVIDERS: PCP Physician Assistant; Visit Provider Registered Nurse Diabetes Educator
DX: E11.21 Type 2 diabetes mellitus with diabetic nephropathy (principal)

== ENCOUNTER → 2024-03-28 09:39 | Outpatient (BNVA) | payer MEDICAID, SELFPAY | PROVIDERS: PCP Physician Assistant; Visit Provider Registered Nurse Diabetes Educator | DX: E11.65 Type 2 diabetes mellitus with hyperglycemia (principal); E11.21 Type 2 diabetes mellitus with diabetic nephropathy; E11.22 Type 2 diabetes mellitus with diabetic chronic kidney disease; N18.6 End stage renal disease; Z79.4 Long term (current) use of insulin | CPT/HCPCS: 99211 ==

== ENCOUNTER 2024-05-02 10:20 | Outpatient (AMB) | payer MEDICAID, SELFPAY ==
--- NOTE | 2024-05-02 11:07 | MHC.AMDMED ---
Intake Intake Visit Reasons: DM2 60 min/LVM Roll Off Driver Required: Yes Roll Off Driver Language: Osteopathic Physician Name: [id number] Accompanied by: Self / Same As Patient Allergies cinacalcet [From SENSIPAR] Allergy (Unknown, Verified 03/16/24 13:08) UNKNOWN Sensipar Allergy (Unknown, Uncoded 03/16/24 13:08) Unknown HPI Comprehensive Diabetes Asmnt Most Recent Diabetes Results: No Data to Display [facility] Medical History (Updated 01/07/21 @ 15:27 by Yoselyn Dia MD) History of papillary adenocarcinoma of thyroid buttermaker (current) use of insulin Diabetic nephropathy associated with type 2 diabetes mellitus ESRD (end stage renal disease) Type 2 diabetes mellitus with chronic kidney disease Diabetes type 2, uncontrolled Non-toxic multinodular goiter Family History Other Diabetes Hypertension Social History Household Members: Family Household Members Other:: Sons Alcohol intake: never Patient Tobacco Use Status: Never used Tobacco Assessment & Plan Assessment & Plan (1) Diabetic nephropathy associated with type 2 diabetes mellitus: Code(s): E11.21 - Type 2 diabetes mellitus with diabetic nephropathy Plan: Personal Continuous Glucose Monitor: Patients CGM information reviewed Reviewed patient's sensor data: Hypoglycemia: ?0% Hyperglycemia:? 38% Time in Range:?62% Average glucose for the last 2 weeks? 175 mg/dL Patient taking Tresiba 22 units daily NovoLog sliding scale before meals Encourage patient to always take NovoLog 15 minutes prior to meal, discussed with patient adding fiber and protein in reducing carbohydrate portions at meals. Patient is on dialysis so recommended patient follow-up with registered dietitian considering nutrition limitations of dialysis patient Patient reports she feels best when her glucose levels are above 180 mg/dL Reviewed with patient target goals for glucose, patient's glucose levels have improved from the low 200s in 02/03/2024 Would not recommend changing insulin doses at this time due to increased risk of hypoglycemia based assessment patient's Dexcom data Reviewed with patient and gave patient information on how to treat hypoglycemia with rule of 15s In addition gave patient carbohydrate list in Cypriot, recommended to patient she identify foods in her diet that contain carbohydrates and keep portions between 30-45 g per meal Patient able to insert sensor independently at home without issue.? Patient will follow-up with hematology nurse educator as needed Portions of this note were created using voice recognition software, please excuse any words or phrases that may have been misinterpreted. Patient Instructions: Novalo-150 isrrael 8 unidades 151-200 isrrael 10 unidades 201-250 isrrael 12 unidades M?s de 250 tomar14 unidades Coding Level of Care Code Est Pt Level 1 (02096) Diagnoses Diabetic nephropathy associated with type 2 diabetes mellitus E11.21
== END 2024-05-02 11:20 | disposition home or self-care (01) ==
PROVIDERS: PCP Physician Assistant; Visit Provider Registered Nurse Diabetes Educator
DX: E11.21 Type 2 diabetes mellitus with diabetic nephropathy (principal)

== ENCOUNTER → 2024-05-02 10:20 | Outpatient (BNVA) | payer MEDICAID, SELFPAY | PROVIDERS: PCP Physician Assistant; Visit Provider Registered Nurse Diabetes Educator | DX: E11.21 Type 2 diabetes mellitus with diabetic nephropathy (principal); Z79.4 Long term (current) use of insulin | CPT/HCPCS: 99211 ==

== ENCOUNTER 2024-05-11 13:01 | Outpatient (AMB) | payer MEDICAID, SELFPAY ==
[2024-05-11 13:04] VITALS: BMI 50.9
--- NOTE | 2024-05-11 13:04 | A.OFFVIS_ITS ---
VS Expanded 05/11/24 13:04 Height 4 ft 10 in Weight 243 lb 6.245 oz BMI 50.9 Intake Visit Reasons: T2DM Allergies cinacalcet [From SENSIPAR] Allergy (Unknown, Verified 05/16/24 13:27) UNKNOWN Sensipar Allergy (Unknown, Uncoded 05/16/24 13:27) Unknown Nutrition Presentation Details: Pt presents for MNT f/u for T2DM Pt reports doing well, working on diet modifications and making healthier choices when eating out. Today will review low sodium food concepts BS Monitoring Most Recent Diabetes Results: No Data to Display PFS Medical History History of papillary adenocarcinoma of thyroid [facility] (current) use of insulin Diabetic nephropathy associated with type 2 diabetes mellitus ESRD (end stage renal disease) Type 2 diabetes mellitus with chronic kidney disease Diabetes type 2, uncontrolled Non-toxic multinodular goiter Surgical History (Updated 05/16/24 @ 13:37 by VINICIUS Ortega) Hx of partial thyroidectomy Hx of tubal ligation Hx of section History of surgery on lower extremity Hx of breast reduction, elective Hx of removal of cyst Family History (Updated 05/16/24 @ 13:33 by VINICIUS Ortega) Father No problems noted. Mother No problems noted. Other Diabetes Hypertension Social History Household Members: Family Household Members Other:: Sons Alcohol intake: never Patient Tobacco Use Status: Never used Tobacco Assessment & Plan Assessment & Plan (1) Type 2 diabetes mellitus with chronic kidney disease: Code(s): E11.22 - Type 2 diabetes mellitus with diabetic chronic kidney disease Category: Medical Plan: Used wt: 114 kg (01/2024), 110 kg (05/09) Est kcal needs as per MSJ: 1921 (40% carb, 30% protein/fat) Est fluid needs as per 25 ml/d: 2863 (unless otherwise specified by MD Est prot per day as per 1 g/kg bw: 114 (unless otherwise specified by MD Recommend fiber intake : 8-10 g per day and gradually increase tolerated Recommend sodium intake per day : less than 2000 mg Educated patient on: ( R = reviewed V = verbalizes understanding N/R = needs review N/A = not applicable * Food sources of carbohydrate, adequate serving sizes and its role in various health conditions: R * Differences between complex carbohydrates a simple carbohydrates, role of fiber in diet: R * Differences between types of fats and role in diet (mono on saturated fat fatty acids, saturated fatty acids, trans fats): R basic low fat, low fat options * Food sources of sodium in salt and healthy modifications for heart health in kidney health: R , written info provided * Vitamins and minerals: R * Healthy plate method concept: R V * Physical activity: Benefits a precaution: R * Hypoglycemia protocol (rule of 15): R, V- written information provided * Dietary prevention of Hyperglycemia: R Patient Instructions: Caution with high sodium foods, choose lower sodium options - see list Continue working on reducing on highly processed meats/foods - read foods labels Coding Level of Care Code Nutr Indiv Subseq (13952) Diagnoses Type 2 diabetes mellitus with chronic kidney disease E11.22 Time Spent (min) 20
== END 2024-05-11 14:35 | disposition home or self-care (01) ==
PROVIDERS: PCP Physician Assistant; Visit Provider Dietitian, Registered
DX: E11.22 Type 2 diabetes mellitus with diabetic chronic kidney disease (principal)

== ENCOUNTER → 2024-05-11 13:01 | Outpatient (BNVA) | payer MEDICAID, SELFPAY | PROVIDERS: PCP Physician Assistant; Visit Provider Dietitian, Registered | DX: E11.22 Type 2 diabetes mellitus with diabetic chronic kidney disease (principal); N18.9 Chronic kidney disease, unspecified; Z71.3 Dietary counseling and surveillance | CPT/HCPCS: 97803 ==

== ENCOUNTER 2024-05-16 13:20 | Outpatient (AMB) | payer MEDICAID, SELFPAY ==
--- NOTE | 2024-05-16 13:21 | MHC.OFFVIS ---
Vital Signs 05/16/24 13:30 Height 4 ft 10 in Weight 240 lb 4.862 oz BMI 50.2 BP 122/70 Blood Pressure Location Rt brachial Position Sitting Pulse 72 Pulse Source Pulse Oximeter Intake Visit Reasons: Type 2 DM/CONFIRMED Intake Note: Patient presents today to establish treatment for Type 2 Diabetes Mellitus: Last Diabetic Eye exam: 02/14/2024, No sign of diabetic retinopathy Last Podiatry Exam: Does not see a Instructional Coordinator Most recent HbA1c: 7.1%, 03/16/2024 Random Glucose- 149 mg/dL, Today Hospital Administrative Assistant Required: Yes Hospital Administrative Assistant Language: Clinic Manager Services: Hospital Administrative Assistant Present Hospital Administrative Assistant Name: Maramohsen Dunbarz,VINICIUS/CLARISA Art Information Interpreted: non-clinical & clinical Accompanied by: Self / Same As Patient Allergies cinacalcet [From SENSIPAR] Allergy (Unknown, Verified 05/16/24 13:27) UNKNOWN Sensipar Allergy (Unknown, Uncoded 05/16/24 13:27) Unknown HPI Comments Details: 63 year old female,her today for follow-up visit, for diabetes management in setting of ESRD. She is also being managed for micro papillary cancer by Dr. Burks. She was last seen by myself 03/16/24 at which time Lantus was changed to Tresiba and by Dr. Burks 05/13/23. She is feeling well, she has no complaints. She is on dialysis Wednesday, Wednesday and Fridays. She has DM type 2 diagnosed on 1999. She was recently in the hospital for a cellulitis under the breast. She is being followed for this and open wound is improving. She has PMH of hypertension, hyperlipidemia, and stage renal disease on hemodialysis M/W/F, secondary hyperparathyroidism, status post parathyroidectomy with transplant into the right brachioradialis muscle. 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 Osteopenia. She has all microvascular complications neuropathy , nephropathy and retinopathy. Current medications Tresiba 22 units Humalog scale before meals 81-150 10 units 151-200 12 units 201-250 14 units >250 16units Dexcom average glucose: 180 14 day continuous glucose monitor report reviewed Glucose Managment indicator 7.6 % Days with CGM data 99.8 % TIme in ranges: 7 % very high (above 250) 37 % high ?(181-250) 56 % in range ?(70-180] 0 % low (69-55) 0 % ?very low (below 54) 23.8% coefficient of variation (goal less than 36%) Interpretation [blood sugars much smoother some increase in sugars after the breakfast meal. She self reports some nocturnal hypoglycemia ] occ hypoglycemia at night Last ophthalmology evaluation uptodate , pt denies retinopathy She is on HD and is anuric, polydipsia +Neuropathy: she is followed by podiatry denies numbness, tingling appt is scheduled Retinopathy: last eye exam one month ago 03/2024 getting eye drops for past year ESRD on HD Status post right lobectomy for the presence of micro papillary cancer. Status post FNA of left thyroid nodule with benign cytology. Recent ultrasound shows stability in the size of the nodules left lobe. Patient appears clinically and biochemically euthyroid. She had fine-needle aspiration of left nodule on 07/21/18 consistent with benign follicular nodule with cystic degeneration. 05/09/2020 US thyroid Right Thyroid Lobe: Surgically absent. No focal soft tissue or fluid collection within the right thyroidectomy bed. . Left Thyroid Lobe: 5.8 x 2.2 x 2.5 cm, volume 16.7 mL. Parenchyma: The gland echotexture is heterogeneous. Thyroid vascularity is normal. Isthmus: 0.5 cm in maximum AP dimension. RIGHT THYROID LOBE: No nodules. ISTHMUS: No nodules. LEFT THYROID LOBE: There is 1 nodule seen. 1. Location: Inferior. Size: 1.4 x 1.1 x 1.4 cm. Previously 1.2 x 0.9 x 1.0 cm Nodule characteristics: Hypoechoic nodule which contains some internal echogenicities and thin septation. No definitive color flow. NODES: No lymphadenopathy is seen in the tissue surrounding the thyroid gland. [facility] Medical History (Updated 01/07/21 @ 15:27 by Yoselyn Dia MD) History of papillary adenocarcinoma of thyroid manager terminal (current) use of insulin Diabetic nephropathy associated with type 2 diabetes mellitus ESRD (end stage renal disease) Type 2 diabetes mellitus with chronic kidney disease Diabetes type 2, uncontrolled Non-toxic multinodular goiter Surgical History (Updated 05/16/24 @ 13:37 by VINICIUS Ortega) Hx of partial thyroidectomy Hx of tubal ligation Hx of section History of surgery on lower extremity Hx of breast reduction, elective Hx of removal of cyst Family History Father No problems noted. Mother No problems noted. Other Diabetes Hypertension Social History Household Members: Family Household Members Other:: Sons Alcohol intake: never Patient Tobacco Use Status: Never used Tobacco Physical Exam Vital Signs: Last Vital Signs Pulse 72 05/16/24 13:30 BP 122/70 05/16/24 13:30 BMI result Body Mass Index 50.2 Const Other: Absence of Cushingoid features. Absence of acromegalic features. Neck exam reveals nl size thyroid about 15 gms. No thyroid nodules palpable. No adenopathy. Heart S1 S2, Reg R/R. No M/R G. Skin exam reveals absence of vitiligo or acanthosis nigricans. No edema Office Procedures Glucose Monitoring Details Details: See [facility] [address] - Glucose monitoring, continuous-physician I&R Procedure code (CPT) selection complete Results Reviewed Results Reviewed: Laboratory Last Values Glucose (Clinic) 149 mg/dL (60-115) H 05/16/24 13:36 Assessment & Plan Assessment & Plan (1) Type 2 diabetes mellitus with chronic kidney disease: Code(s): E11.22 - Type 2 diabetes mellitus with diabetic chronic kidney disease Category: Medical Plan: 63-year-old type 2 diabetic with chronic kidney disease on HD, retinopathy and neuropathy who presents with improving glucose numbers. Most recent GMI (equivalent to A1c) is 7.6%. Will reduce Tresiba and add 2 units of insulin to her breakfast Humalog. Tresiba 20 units Humalog scale before meals (+2 to breakfast scale) 81-150 10 units 151-200 12 units 201-250 14 units >250 16units She will have fasting blood work done. She was asked not to take her short-acting insulin until she eats breakfast that morning. Carry a source of sugar at all times. She will follow up with both podiatry and ophthalmology (2) History of papillary adenocarcinoma of thyroid: Code(s): Z85.850 - Personal history of malignant neoplasm of thyroid Category: Medical Plan: She will have ultrasound one, free T4 and TSH drawn and follow up with Dr. Burks Plan The patient was counseled to achieve a target A1C of 7% (154 avg). Fasting blood sugars should be 90-130 in the morning and less than 180 two hours after meals. Reviewed the relationship between poor diabetic control and the developement of complications. Patient was given written insulin instructions in Upper Sorbian. Orders: Orders Basic Metabolic Panel Fasting 1 Week E11.21 - Type 2 diabetes mellitus with diabetic nephropathy US thyroid Today Z85.850 - Personal history of malignant neoplasm of thyroid Thyroid Stimulating Hormone 1 Week E11. - Type 2 diabetes mellitus with diabetic nephropathy, Z85.850 - Personal history of malignant neoplasm of thyroid Free T4 (Free Thyroxine) 1 Week E11. - Type 2 diabetes mellitus with diabetic nephropathy, Z85.850 - Personal history of malignant neoplasm of thyroid Lipid Panel 1 Week E11. - Type 2 diabetes mellitus with diabetic nephropathy AMB Glucose Monitoring Today . - Type 2 diabetes mellitus with diabetic chronic kidney disease Medications: Changed From insulin degludec (Tresiba FlexTouch U-200 insulin) 22 units (0.11 mL) subcut DAILY 30 days 3.3 mL 6RF . - Type 2 diabetes mellitus with diabetic chronic kidney disease To insulin degludec (Tresiba FlexTouch U-200 insulin) 20 units (0.1 mL) subcut DAILY 30 days 3 mL 6RF . - Type 2 diabetes mellitus with diabetic chronic kidney disease From insulin lispro (Humalog KwikPen (U-100) Insulin) 10 units breakfast and lunch, 14 units with dinner up to 20 units. 10 - 20 units (0.1 - 0.2 mL) subcut TID 90 days 90 mL 2RF . - Type 2 diabetes mellitus with diabetic chronic kidney disease To insulin lispro (Humalog KwikPen (U-100) Insulin) 10-18 units subcutaneously 3 times a day; 10 units breakfast and lunch, 14 units with dinner up to 20 units. 90 days 90 mL 2RF E11. - Type 2 diabetes mellitus with diabetic chronic kidney disease Coding Level of Care Code Est Pt Level 4 (95254) Diagnoses Type 2 diabetes mellitus with chronic kidney disease . History of papillary adenocarcinoma of thyroid Z85.850 CPT Codes Details - CPT: 24486 - Glucose monitoring, continuous-physician I&R ([id number])
--- OUTSIDE RECORDS SUMMARY | 2024-05-16 13:21 | XMS_ITS | Continuity of Care Document ---
Author Organization [facility] Address [address] [place] [id number]- Care Team Providers Care Boxing Inspector Name Role Phone Heather Acharya Primary Care Physician Encounter [facility] Date(s): 12/29/21 - 01/28/[address] [id number] Attending Physician: Not on Staff, Attending MD Admitting Physician: Not on Staff, Admitting MD Referring Physician: Not on Staff, Referring MD Allergies, Adverse Reactions, Alerts Substance Reaction Severity Status Sensipar gi upset Active Immunizations Not Given Vaccine Date Status Refusal Reason pneumococcal 23-valent vaccine 1 04/11/14 Not Give n Patient Refuses 1Result Note: poc 139 Medications Compression Stockings See Instructions, # 6 pair, Refills 2, Tot. Refills 2, Maintenance, surgical, knee length 20-30 mm Hg DX:left leg edema, 08/28/14 14:34:41, Compound Start Date: 08/28/14 Status: Ordered Glucose Test Strips See Instructions, # 1 application, Maintenance, use for testing blood sugar, 04/23/14 22:31:58, Compound Start Date: 04/23/14 Status: Ordered Humalog 100 u/ml subcutaneous injection See Instructions, 10-20 units TID w/ meals per the patient, # 7.5 mL, 2 Refills, Maintenance, 12/07/12 9:21:47 Start Date: 12/07/12 Status: Ordered insulin glargine 100 u/ml subcutaneous solution = 25 units, Subcutaneous Injection, 2 times a day, 0 Refills, Maintenance, 04/11/14 14:07:24, Injection Start Date: 04/11/14 Status: Ordered Left arm compression sleeve 20/30 mm/Hg Left arm compression sleeve 20/30 mm/Hg, See Instructions, # 1 application, Refills 3, Tot. Refills3, Maintenance, Apply sleeve to left arm in morning and remove prior to sleep, 05/13/17 15:18:02, Compound Start Date: 05/13/17 Status: Ordered losartan 100 mg oral tablet 1 tablet = 100 mg, By Mouth, Daily, 0 Refills, Maintenance, 09/27/14 14:38:27 Start Date: 09/27/14 Status: Ordered novofine 32g disposable needles novofine 32g disposable needles, See Instructions, # 30 each, Refills 5, Tot. Refills 5, Maintenance, use daily with victoza, 05/07/16 10:12:42, Compound Start Date: 05/07/16 Status: Ordered NuLYTELY with Flavor Packs oral powder for reconstitution 240 mL, By Mouth, Every 15 minutes, # 4,000 mL, 0 Refills, Maintenance, 07/21/18 12:00:47 EST, 240 mL By Mouth Every 15 minutes Start Date: 07/21/18 Status: Ordered [place] Caps 1 capsule, By Mouth, Daily, 0 Refills, Maintenance, 04/10/14 1:09:46 Start Date: 04/10/14 Status: Ordered Renvela 800 mg oral tablet 1 tablet = 800 mg, By Mouth, 3 times a day, 0 Refills, Maintenance, 09/27/14 14:37:26 Start Date: 09/27/14 Status: Ordered Problem List Condition Effective Dates Status Health Status Inform ant Binge-eating disorder, mild(Confirmed) Active Diabetes mellitus type 2(Confirmed) 11/19/11 Active Dialysis patient(Confirmed) 1 Active ESRD (end stage renal diseas e) on dialysis(Confirmed) Active HTN (hypertension)(Confirmed) Active Ovarian mass(Confirmed) Active Morbid obesity with BMI of 4 5.0-49.9, adult(Confirmed) Active [address] M, W, F 10:30-4 pm Social History Social History Type Response Smoking Status Never smoker entered on: 05/10/14 Sex
--- OUTSIDE RECORDS SUMMARY | 2024-05-16 13:21 | XMS_ITS | Continuity of Care Document ---
Author Organization [facility] Address [address] [place] [address] [address] [place] [address]- Care Team Providers Care Glass Mould Cleaner Name Role Phone Heather Acharya Primary Care Physician [phone] Encounter [facility] Date(s): 09/23/22 - 10/23/[address] [place] [address]- Allergies, Adverse Reactions, Alerts Substance Reaction Severity [...] 15 minutes Start Date: 07/21/18 Status: Ordered Lenoir Caps 1 capsule, By Mouth, Daily, 0 Refills, Maintenance, 04/10/14 1:09:46 Start Date: 04/10/14 Status: Ordered Renvela 800 mg oral tablet 1 tablet = 800 mg, By Mouth, 3 times a day, 0 Refills, Maintenance, 09/27/14 14:37:26 Start Date: 09/27/14 Status: Ordered Problem List Condition Confirmation Course Effective Dates Status Health St atus Informant Binge-eating disorder, mild Confirmed Active Diabetes mellitus type 2 Confirmed 11/19/11 Active Dialysis patient 1 Confirmed Active ESRD (end stage renal disease) on dialysis Confirmed Active HTN (hypertension) Confirmed Active Ovarian mass Confirmed Active Morbid obesity with BMI of 45.0-49.9, adult Confirmed Active [address], W, F 10:30-4 pm Social History Social History Type Response Smoking Status Never smoker entered on: 05/10/14 Sex Patient Care team information Care Team Personnel Name: Heather Acharya Position: [facility] Associate Professional Member Role: PCP Address: Address: [address] [place] [address]- Name: Heike Al RN Position: [facility] Onco RN Member Role: Primary Care Nurse Care Team Related Persons Name: CLEO DE LEON Address: home [address] [facility] [address] [place] [address] Name: PAMELLA MCNAIR Address: home [address] [place] [id number]
--- OUTSIDE RECORDS SUMMARY | 2024-05-16 13:21 | XMS_ITS | Continuity of Care Document ---
Author Organization [facility] Address [address] [place] [address]- Care Team Providers Care Market Development Specialist Name Role Phone Heather Acharya Primary Care Physician Encounter 01/01/22 - 02/26/22 [facility] [address] [place] [address]- Discharge Disposition: GOALS MET Allergies, Adverse Reactions, Alerts Substance Reaction Severity [...] 15 minutes Start Date: 07/21/18 Status: Ordered Dickens Caps 1 capsule, By Mouth, Daily, 0 [...] with BMI of 4 5.0-49.9, adult(Confirmed) Active [address] M, W, F 10:30-4 pm Social History Social History Type Response Smoking Status Never smoker entered on: 05/10/14 Sex
[2024-05-16 13:30] VITALS: BP 122/70; PULSE 72; BMI 50.2
[2024-05-16 13:41] LABS: Glucose, Whole Blood 149 mg/dL (60-115)
== END 2024-05-16 13:57 | disposition home or self-care (01) ==
LOC: HO.ENCR 13:20
PROVIDERS: PCP Physician Assistant; Visit Provider Nurse Practitioner Adult Health
DX: E11.22 Type 2 diabetes mellitus with diabetic chronic kidney disease (principal); Z85.850 Personal history of malignant neoplasm of thyroid
CPT/HCPCS: 95251; 99214

== ENCOUNTER → 2024-05-16 13:20 | Outpatient (BNVA) | payer MEDICAID, SELFPAY | PROVIDERS: PCP Physician Assistant; Visit Provider Nurse Practitioner Adult Health | DX: E11.22 Type 2 diabetes mellitus with diabetic chronic kidney disease (principal); E11.21 Type 2 diabetes mellitus with diabetic nephropathy; I12.0 Hypertensive chronic kidney disease with stage 5 chronic kidney disease or end stage renal disease; N18.6 End stage renal disease; E78.5 Hyperlipidemia, unspecified; Z99.2 Dependence on renal dialysis; Z85.850 Personal history of malignant neoplasm of thyroid | CPT/HCPCS: 82947; 99212 ==

== ENCOUNTER 2024-06-15 13:23 | Outpatient (REF) | payer MEDICAID, SELFPAY | END 2024-06-15 13:24 | disposition home or self-care (01) | LOC: HO.US 13:23 | PROVIDERS: PCP Physician Assistant; Visit Provider Nurse Practitioner Adult Health | DX: Z85.850 Personal history of malignant neoplasm of thyroid (principal) | CPT/HCPCS: 76536 ==

== ENCOUNTER 2024-06-27 10:39 | Outpatient (AMB) | payer MEDICAID, SELFPAY ==
--- NOTE | 2024-06-27 10:48 | MHC.OFFVIS ---
Vital Signs 06/27/24 10:57 Height 4 ft 10 in Weight 242 lb 4.608 oz BMI 50.6 BP 112/68 Blood Pressure Location Rt radial Position Sitting Pulse 69 Pulse Source Pulse Oximeter Intake Visit Reasons: Personal history of malignant neoplasm of thyroid Intake Note: Patient present today for hx of malignant neoplasm of Thyroid. Sorority Mother Required: Yes Sorority Mother Language: [employer] Services: Sorority Mother Present Sorority Mother Name: Eleonora Information Interpreted: non-clinical & clinical Accompanied by: Self / Same As Patient Allergies cinacalcet [From SENSIPAR] Allergy (Unknown, Verified 06/27/24 10:58) UNKNOWN Sensipar Allergy (Unknown, Uncoded 06/27/24 10:58) Unknown HPI Comments Details: 63 year old female, today for follow-up visit, for micro papillary cancer. Today's visit focus is on the thyroid cancer. Followed by Lisa Easton NP for Type 2 diabetes She is feeling well, she has no complaints. He is on dialysis Wednesday, Wednesday and Fridays. She has PMH of hypertension, hyperlipidemia, and stage renal disease on hemodialysis M/W/F, secondary hyperparathyroidism, status post parathyroidectomy with transplant into the right brachioradialis muscle. 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 Osteopenia. She had fine-needle aspiration of left nodule on 07/21/18 consistent with benign follicular nodule with cystic degeneration. 05/09/2020 US thyroid Right Thyroid Lobe: Surgically absent. No focal soft tissue or fluid collection within the right thyroidectomy bed. . Left Thyroid Lobe: 5.8 x 2.2 x 2.5 cm, volume 16.7 mL. Parenchyma: The gland echotexture is heterogeneous. Thyroid vascularity is normal. Isthmus: 0.5 cm in maximum AP dimension. RIGHT THYROID LOBE: No nodules. ISTHMUS: No nodules. LEFT THYROID LOBE: There is 1 nodule seen. 1. Location: Inferior. Size: 1.4 x 1.1 x 1.4 cm. Previously 1.2 x 0.9 x 1.0 cm Nodule characteristics: Hypoechoic nodule which contains some internal echogenicities and thin septation. No definitive color flow. NODES: No lymphadenopathy is seen in the tissue surrounding the thyroid gland. 05/11/2018 TSH 2.48 mIU per mL Free T4 1.17 ng per dL Thyroglobulin level is 7 ng per mL Antithyroglobulin antibody negative. 08/30/2019 TSH 2.71 miu/ml FT4 1.18 ng/dl TG level 6.5 TG antibodies negative LDL cholesterol direct 118 mg per dL Total cholesterol 188 mg/dL Triglycerides 169 mg/dL HDL cholesterol 33 mg/dL. Laboratory Tests 08/29/19 10/26/19 01/07/21 08:40 10:35 15:00 Glucose (Clinic) 143 H POC Glucose 153 H Hgb A1c Fingerstick 8.0 Hgb A1c (Clinic) 01/07/21 15:13 Glucose (Clinic) POC Glucose Hgb A1c Fingerstick Hgb A1c (Clinic) 6.8 H PFSH Medical History History of papillary adenocarcinoma of thyroid correction (current) use of insulin Diabetic nephropathy associated with type 2 diabetes mellitus ESRD (end stage renal disease) Type 2 diabetes mellitus with chronic kidney disease Diabetes type 2, uncontrolled Non-toxic multinodular goiter Surgical History Hx of partial thyroidectomy Hx of tubal ligation Hx of section History of surgery on lower extremity Hx of breast reduction, elective Hx of removal of cyst Family History Father No problems noted. Mother No problems noted. Other Diabetes Hypertension Social History Household Members: Family Household Members Other:: Sons Alcohol intake: never Patient Tobacco Use Status: Never used Tobacco Physical Exam Vital Signs: Last Vital Signs Pulse 69 06/27/24 10:57 BP 112/68 06/27/24 10:57 BMI result Body Mass Index 50.6 Assessment & Plan Assessment & Plan (1) History of papillary adenocarcinoma of thyroid: Code(s): Z85.850 - Personal history of malignant neoplasm of thyroid Category: Medical Plan: Status post right lobectomy the presence of micro papillary cancer. Status post FNA of left thyroid nodule with benign cytology. Recent ultrasound shows stability in the size of the nodules left lobe. Patient appears clinically and biochemically euthyroid. Plan is to continue the current treatment. Will have patient follow up with Dr. Mitatl an patient care technician in our practice with expertise and neck ultrasound Coding Level of Care Code Est Pt Level 3 (08842) Diagnoses History of papillary adenocarcinoma of thyroid Z85.850
[2024-06-27 10:57] VITALS: BP 112/68; PULSE 69; BMI 50.6
== END 2024-06-27 11:17 | disposition home or self-care (01) ==
PROVIDERS: PCP Physician Assistant; Visit Provider Internal Medicine Endocrinology, Diabetes & Metabolism
DX: Z85.850 Personal history of malignant neoplasm of thyroid (principal)
CPT/HCPCS: 99213

== ENCOUNTER → 2024-06-27 10:39 | Outpatient (BNVA) | payer MEDICAID, SELFPAY | PROVIDERS: PCP Physician Assistant; Visit Provider Internal Medicine Endocrinology, Diabetes & Metabolism | DX: E78.5 Hyperlipidemia, unspecified (principal); N25.81 Secondary hyperparathyroidism of renal origin; N18.6 End stage renal disease; Z99.2 Dependence on renal dialysis; Z85.850 Personal history of malignant neoplasm of thyroid | CPT/HCPCS: 99212 ==

== ENCOUNTER → 2024-08-03 13:30 | Outpatient (AMB) | payer MEDICAID, SELFPAY ==
--- OUTSIDE RECORDS SUMMARY | 2024-08-03 13:33 | XMS_ITS ---
Author Name Irma, Clinic Address [address] [place] [address] Phone [phone] Organization [facility] e, NA DOCUMENT DISCLAIMER Multiple document versions may exist, please be sure you review the latest version. The information in the [facility] Continuity of Care Document represents a summary of certain health and medical information. It may not contain the complete medical history for the patient and should be independently verified. The represented time in the document is Eastern Time. PROBLEMS Problem Code Status Onset Date Abscess of the breast and nipple N61.1 Active June 05, 2024 Other secondary hypertension I15.8 Active July 05, 2023 Unspecified fracture of shaf t of left fibula, sequela S82.402S Active November 05, 2021 Xerosis cutis L85.3 Active September 04 Other seborrheic keratosis L82.1 Active J anuary 2020 Postinflammatory hyperpigmentation L81.0 Active September 04, 2020 Hidradenitis suppurativa L73.2 Active Zachery santos 2020 Acne vulgaris L70.0 Active September 04 Melanocytic nevi of trunk D22.5 Active Chris beckham 2020 Fluid overload, unspecified E87.70 Active July 22, 2020 Anaphylactic shock, unspecified, initial encounter T78 .2XXA Active June 25, 2020 Allergy, unspecified, initial encounter T78.40XA A ctive June 25, 2020 Postinflammatory hyperpigmentation L81.0 Active April 10, 2020 Hidradenitis suppurativa L73.2 Active Mar ust 2019 Melanocytic nevi of right up per limb, including shoulder D22.61 Active April 10, 2020 Melanocytic nevi of trunk D22.5 Active Au josé miguel 2019 Secondary hypertension, unspecified I15.9 Activ e June 24, 2018 Postprocedural hypoparathyroidism E89.2 Active June 18, 2017 Other specified symptoms and signs involving the circulatory and respiratory systems R09.89 Active Apr Nausea R11.0 Active May 10, 015 Headache, unspecified R51.9 Active 2014 Angina pectoris, unspecified I20.9 Active May 10, 2015 Encounter for adequacy testing for hemodialysis Z49.31 Active May 10, 2015 Hypoglycemia, unspecified E16.2 Active Se pt2014 Nausea R11.0 Active April 23 015 Diarrhea, unspecified R19.7 Active 2014 Pruritus, unspecified L29.9 Active 2014 Pain, unspecified R52 Active April 23, 2015 Headache, unspecified R51.9 Active 2014 Fever, unspecified R50.9 Active April 23, 2015 Hypocalcemia E83.51 Active October 08 15 Infection and inflammatory r eaction due to other cardiac and vascular devices, implants and grafts, initial encounter T82.7XXA Active September 21, 2014 Cellulitis of trunk, unspecified L03.319 Active September 10, 2014 Coagulation defect, unspecified D68.9 Active August 27, 2014 Hypothyroidism, unspecified E03.9 Active June 06, 2014 Encounter for immunization Z23 Active O ct2013 Hyperkalemia E87.5 Active May 17, 4 Hypoparathyroidism, unspecified E20.9 Active April 20, 2014 Urinary tract infection, site not specified N39.0 Active March 28, 2014 Chills (without fever) R68.83 Active 2013 Other disorders of electroly te and fluid balance, not elsewhere classified E87.8 Active April 12, 2013 Gastro-esophageal reflux dis ease without esophagitis K21.9 Active December 12, 2012 Hyperlipidemia, unspecified E78.5 Active August 14, 2012 Anemia in chronic kidney disease D63.1 Active August 14, 2010 Secondary hyperparathyroidism of renal origin N25.81 Active August 14, 2010 Iron deficiency anemia, unspecified D50.9 Activ e August 14, 2010 Major depressive disorder, s jory episode, unspecified F32.9 Active August 14, 2010 Acquired absence of both cervix and uterus Z90.710 Active August 14, 2010 Shortness of breath R06.02 Active December 21, 2008 Other parts counterman (current) drug therapy Z79.899 Ac tive December 21, 2008 Essential (primary) hypertension I10 Active December 20, 2008 Type 2 diabetes mellitus wit h other diabetic kidney complication E11.29 Active December 07, 2008 End stage renal disease N18.6 Active Apri 2008 ALLERGIES AND ADVERSE REACTIONS No Known Allergies SOCIAL HISTORY Tobacco Use Status Tobacco Type Unknown if ever consumed tobacco - Caregiver Characteristics No Information Available Characteristics of Home environment No Information Available Gender and Sex Information Gender Identity Sexual Orientation Female Heterosexual MEDICATIONS Prescribed Medications for Dialysis Treatments Medication Instructions Dosage Route Start Date End Date Stat us Heparin Sodium (Porcine) 1,000 Units/mL Systemic Bolus, 3X Week, Total treatment minutes 240 5000 units Intravenous - push July 24, 2024 July 23, 2025 Active Heparin Sodium (Porcine) 1,000 Units/mL Systemic Bolus, 3X Week, Total treatment minutes 240 5000 units Intravenous - push July 23, 2023 July 21, 2024 Active Loperamide PRN-december repeat x1 2 mg Oral May 24, 2024 May 23, 2025 Active Vitamin D (Calcitriol) Oral Every Treatment 0.5 mcg Oral March 27, 2024 March 26, 2025 Active Home Medications Medication Instructions Dosage Route Start Date End Date Status Admelog SoloStar U-100 Insulin 100 unit/mL SUBCUTANEOUS September 22, 2018 Active Bactrim 400-80 mg Take by mouth twice a day 1 tablet ORAL January 23, 2023 Active carvedilol 25 mg Take by mouth twice a day 1 tablet ORAL November 01, 2018 Active doxycycline hyclate 100 mg Take twice a day 1 capsule ORAL June 21, 2020 Active ergocalciferol (vitamin D2) 1,250 mcg (50,000 unit) Take by mouth once a week 1 capsule ORAL November 25, 2017 Active hydralazine 10 mg Take by mouth twice a day 1 tablet ORAL August 30, 2023 Active Lantus U-100 Insulin 100 unit/mL Inject subcutaneously twice a day 50 unit SUBCUTANEOUS October 12, 2014 Active lidocaine-prilocai ne 2.5-2.5% Apply to skin three times a week 1 a small amount TOPICAL May 21, 2023 Active losartan 100 mg Take by mouth once a day 1 tablet ORAL February 20, 2015 Active Vinod Caps 1 mg Take by mouth once a day 1 capsule ORAL September 20, 2023 Active rifaximin 200 mg Unknown August 13, 2017 Active Velphoro 500 mg Take by mouth three times a day with meals 2 tablet ORAL December 28, 2022 Active VITAL SIGNS Post-Treatment Vital Signs Vital Sign Value Date / Time Blood Pressure-sitting 177/80 mmHg August 02, 2024 10:49 AM Blood Pressure-standing 180/89 mmHg August 02, 2024 10:49 AM Heart Rate 62 beats per minute August 02, 2024 10:49 AM Respiratory Rate 19 breaths per minute August 02, 2024 10:49 AM Temperature 98.0 deg. F August 02 10:49 AM Weight Vital Sign Value Date / Time Estimated Dry Weight 110 kg June 11:59 PM Pre-Dialysis 111.60 kg August 02 10:49 AM Post-Dialysis 110.50 kg August 02 10:49 AM Other Other Value Date / Time Height 150 cm June 26 12:00 AM Body Mass Index 48.44 kg/m2 July 12 10:40 AM LAB RESULTS Hematology Result Type Result Value Relevant Referen ce Range Interpretation Date Transferrin Sat. (Calc) 33 % 20 - 55 % - February 16, 2024 TIBC (Calc) 224 mcg/dL 185 - 515 mcg/dL - February UIBC/TIBC 150 mcg/dL 155 - 355 mcg/dL Low February 16, 2024 Ferritin 1303 ng/mL 10 - 291 ng/mL High February 15, 024 WBC (No Diff) 8.03 1000/mcL 4.80 - 10.80 1000/mcL - February 16, 2024 Transferrin Sat. (Calc) 46 % 20 - 55 % - March 22, 2024 TIBC (Calc) 225 mcg/dL 185 - 515 mcg/dL - March 22, 2024 UIBC/TIBC 122 mcg/dL 155 - 355 mcg/dL Low March Ferritin 967 ng/mL 10 - 291 ng/mL High March 22, 2024 Ferritin 1393 ng/mL 10 - 291 ng/mL High April 24, 2024 Transferrin Sat. (Calc) 49 % 20 - 55 % - April 24 UIBC/TIBC 94 mcg/dL 155 - 355 mcg/dL Low e r 2023 TIBC (Calc) 186 mcg/dL 185 - 515 mcg/dL - Septemb er 2023 Hemoglobin x 3 30.9 % 36.0 - 48.0 % Low Septemb er 2023 Ferritin 1192 ng/mL 10 - 291 ng/mL High May Retic HGB (CHr) 34.3 pg 25.4 - 31.8 pg High 2023 Hemoglobin x 3 31.2 % 36.0 - 48.0 % Low May 17, 2024 Iron 137 mcg/dL 30 - 160 mcg/dL - May Transferrin Sat. (Calc) 61 % 20 - 55 % High May 17, 2024 TIBC (Calc) 225 mcg/dL 185 - 515 mcg/dL - May 17, 2024 UIBC/TIBC 88 mcg/dL 155 - 355 mcg/dL Low May 17, 2024 WBC (No Diff) 5.08 1000/mcL 4.80 - 10.80 1000/mcL - May 17, 2024 RDW 13.0 % 11.5 - 14.5 % - May 17, 2024 MCHC 33.4 g/dL 30.0 - 36.0 g/dL - May 17, 2024 MCH 32.9 pg 27.0 - 31.0 pg High May Hemoglobin x 3 30.9 % 36.0 - 48.0 % Low May 24, 2024 Hemoglobin x 3 30.6 % 36.0 - 48.0 % Low May 31, 2024 Hemoglobin x 3 30.6 % 36.0 - 48.0 % Low June 07, 2024 Hemoglobin x 3 30.3 % 36.0 - 48.0 % Low June 14, 2024 Transferrin Sat. (Calc) 53 % 20 - 55 % - June 21 TIBC (Calc) 228 mcg/dL 185 - 515 mcg/dL - 2023 UIBC/TIBC 107 mcg/dL 155 - 355 mcg/dL Low June 21, 2024 Iron 121 mcg/dL 30 - 160 mcg/dL - June 21, 2024 Ferritin 1352 ng/mL 10 - 291 ng/mL High June Hemoglobin x 3 31.5 % 36.0 - 48.0 % Low r 2023 Hemoglobin x 3 30.6 % 36.0 - 48.0 % Low r 2023 HGB 10.6 g/dL 12.0 - 16.0 g/dL Low July 05, 2024 Hemoglobin x 3 31.8 % 36.0 - 48.0 % Low Novembe r 2023 HGB 10.8 g/dL 12.0 - 16.0 g/dL Low July 12, 2024 Hemoglobin x 3 32.4 % 36.0 - 48.0 % Low 2023 Hemoglobin x 3 30 % 36.0 - 48.0 % Low [facility]2023 HGB 10.0 g/dL 12.0 - 16.0 g/dL Low July 19, 2024 Ferritin 1238 ng/mL 10 - 291 ng/mL High July Iron 145 mcg/dL 30 - 160 mcg/dL - July 19, 2024 UIBC/TIBC 72 mcg/dL 155 - 355 mcg/dL Low July 19, 2024 TIBC (Calc) 217 mcg/dL 185 - 515 mcg/dL - 2023 Transferrin Sat. (Calc) 67 % 20 - 55 % High July 19 HGB 10.5 g/dL 12.0 - 16.0 g/dL Low July 26, 2024 Hemoglobin x 3 31.5 % 36.0 - 48.0 % Low [facility]2023 HGB 10.6 g/dL 12.0 - 16.0 g/dL Low August 02, 2024 Hemoglobin x 3 31.8 % 36.0 - 48.0 % Low [facility] 2023 Metabolic/Renal Result Type Result Value Relevant Referen ce Range Interpretation Date Hemoglobin A1c 6.9 % 4.8 - 5.9 % High February 16, 2024 Hemoglobin A1c 7.2 % 4.8 - 5.9 % High May Bicarbonate 24 mEq/L 22 - 29 mEq/L - May URR, Calc 80 % 65 - 80 % - May 17 BUN, Post 8 mg/dL 6 - 19 mg/dL - May 17, 2024 BUN/Creat Ratio 5.7 10.0 - 20.0 Low May 17, 2024 Creatinine, Serum 7.01 mg/dL 0.60 - 1.30 mg/dL High May 17, 2024 BUN 40 mg/dL 6 - 19 mg/dL High May 17, 2024 Chloride 100 mEq/L 96 - 108 mEq/L - May Potassium 4.8 mEq/L 3.5 - 5.1 mEq/L - May Sodium 138 mEq/L 136 - 145 mEq/L - May Sodium 138 mEq/L 136 - 145 mEq/L - June 21, 2024 BUN/Creat Ratio 6.6 10.0 - 20.0 Low June 21, 2024 Creatinine, Serum 7.47 mg/dL 0.60 - 1.30 mg/dL High June 21, 2024 BUN 49 mg/dL 6 - 19 mg/dL High June 21, 2024 Potassium 5.2 mEq/L 3.5 - 5.1 mEq/L High June 21, 2024 URR, Calc 78 % 65 - 80 % - June 21, 2 024 BUN, Post 11 mg/dL 6 - 19 mg/dL - June 21, 2024 Bicarbonate 22 mEq/L 22 - 29 mEq/L - June Chloride 99 mEq/L 96 - 108 mEq/L - June URR, Calc 77 % 65 - 80 % - July 19, 2 024 BUN 48 mg/dL 6 - 19 mg/dL High July 19, 2024 Creatinine, Serum 7.08 mg/dL 0.60 - 1.30 mg/dL High July 19, 2024 BUN, Post 11 mg/dL 6 - 19 mg/dL - July 19, 2024 Chloride 102 mEq/L 96 - 108 mEq/L - July Bicarbonate 23 mEq/L 22 - 29 mEq/L - July BUN/Creat Ratio 6.8 10.0 - 20.0 Low July 19, 2024 Sodium 140 mEq/L 136 - 145 mEq/L - July 19, 2024 Potassium 4.6 mEq/L 3.5 - 5.1 mEq/L - July 19, 2024 HD Adequacy Result Type Result Value Relevant Referen ce Range Interpretation Date Krt/V 0.00 No Reference Ran ge Provided - February 16, 2024 Krt/V 0.00 No Reference Ran ge Provided - March 22, 2024 Krt/V 0.00 No Reference Ran ge Provided - April 28, 2024 wstdKt/V without residual 2.7 No Reference Range Provided - May 17, 2024 wstdKt/V 2.7 No Reference Ran ge Provided - May 17, 2024 wstdKt/V, residual 0.0 No Reference Range Provided - May 17, 2024 eKt/V ([place]) 1.67 No Reference Range Provided - May 17, 2024 spKt/V Gotch 2.04 No Reference Ran ge Provided - May 17, 2024 Krt/V 0.00 No Reference Ran ge Provided - May 17, 2024 spKt/V (Daugird[place] II) 1.91 No Reference Range Provided - May 17, 2024 Krt/V 0.00 No Reference Ran ge Provided - June 21, 2024 wstdKt/V 2.6 No Reference Ran ge Provided - June 21, 2024 wstdKt/V without residual 2.6 No Reference Range Provided - June 21, 2024 spKt/V ([place]irdas II) 1.73 No Reference Range Provided - June 21, 2024 spKt/V Gotch 1.81 No Reference Ran ge Provided - June 21, 2024 wstdKt/V, residual 0.0 No Reference Range Provided - June 21, 2024 eKt/V ([place]) 1.52 No Reference Range Provided - June 21, 2024 wstdKt/V, residual 0.0 No Reference Range Provided - July 19, 2024 Krt/V 0.00 No Reference Ran ge Provided - July 19, 2024 wstdKt/V 2.6 No Reference Ran ge Provided - July 19, 2024 eKt/V ([place]) 1.49 No Reference Range Provided - July 19, 2024 spKt/V Gotch 1.77 No Reference Ran ge Provided - July 19, 2024 spKt/V (Daugirdas II) 1.71 No Reference Range Provided - July 19, 2024 wstdKt/V without residual 2.6 No Reference Range Provided - July 19, 2024 Bone/Mineral Result Type Result Value Relevant Referen ce Range Interpretation Date Magnesium 2.3 mg/dL 1.6 - 2.6 mg/dL - August Magnesium 2.2 mg/dL 1.6 - 2.6 mg/dL - September 22, 2023 Magnesium 2.1 mg/dL 1.6 - 2.6 mg/dL - October 20, 2023 Magnesium 2.3 mg/dL 1.6 - 2.6 mg/dL - November 17, 2023 Magnesium 2.2 mg/dL 1.6 - 2.6 mg/dL - May 01, 2 024 Magnesium 2.1 mg/dL 1.6 - 2.6 mg/dL - January 19, 2024 PTH-Intact, Plasma 385 pg/mL 16 - 80 pg/mL High Feb Magnesium 2.2 mg/dL 1.6 - 2.6 mg/dL - February 16, 2024 Magnesium 2.3 mg/dL 1.6 - 2.6 mg/dL - March PTH-Intact, Plasma 406 pg/mL 16 - 80 pg/mL High Mar us2023 PTH-Intact, Plasma 299 pg/mL 16 - 80 pg/mL High Apr Magnesium 2.0 mg/dL 1.6 - 2.6 mg/dL - April 24, 2024 Vitamin D 25 Hydroxy 57.0 ng/mL 30 - 100 ng/mL - May 17, 2024 PTH-Intact, Plasma 364 pg/mL 16 - 80 pg/mL High May [email or web address] Alkaline Phosphatase 136 U/L 35 - 104 U/L High Oc tob2023 Ca x P Product 48 0 - 54 - May Phosphorus 5.4 mg/dL 2.6 - 4.5 mg/dL High May Calcium, Total 8.9 mg/dL 8.4 - 10.2 mg/dL - 2023 Corrected Ca x P Product 48 0 - 54 - May 17, 2024 Magnesium 2.2 mg/dL 1.6 - 2.6 mg/dL - May Magnesium 2.1 mg/dL 1.6 - 2.6 mg/dL - June 21, 2024 PTH-Intact, Plasma 396 pg/mL 16 - 80 pg/mL High Jun Alkaline Phosphatase 119 U/L 35 - 104 U/L High No vember 2023 Ca x P Product 47 0 - 54 - June Phosphorus 5.9 mg/dL 2.6 - 4.5 mg/dL High June 21, 2024 Calcium, Total 7.9 mg/dL 8.4 - 10.2 mg/dL Low Nove mber 2023 Corrected Ca x P Product 48 0 - 54 - June 21 PTH-Intact, Plasma 358 pg/mL 16 - 80 pg/mL High Dec emb2023 Ca x P Product 51 0 - 54 - July Alkaline Phosphatase 114 U/L 35 - 104 U/L High 2023 Calcium, Total 7.6 mg/dL 8.4 - 10.2 mg/dL Low 2023 Phosphorus 6.7 mg/dL 2.6 - 4.5 mg/dL High July 19, 2024 Corrected Ca x P Product 52 0 - 54 - July 19 Magnesium 2.1 mg/dL 1.6 - 2.6 mg/dL - July 19, 2024 Liver/Nutrition Result Type Result Value Relevant Reference Range Interpre tation LDH 159 U/L 118 - 273 U/L - February 15 eNPCR 0.83 No Reference Ran ge Provided - May 17, 2024 Albumin (BCG) 4.0 g/dL 3.5 - 5.2 g/dL - May 17, 2024 LDH 120 U/L 118 - 273 U/L - May 17, 2024 SGPT (ALT) 16 U/L 7 - 52 U/L - May 17 eNPCR 0.91 No Reference Ran ge Provided - June 21, 2024 Albumin (BCG) 3.8 g/dL 3.5 - 5.2 g/dL - 2023 SGPT (ALT) 17 U/L 7 - 52 U/L - June 21 SGPT (ALT) 14 U/L 7 - 52 U/L - July 19 eNPCR 0.88 No Reference Ran ge Provided - July 19, 2024 Albumin (BCG) 3.7 g/dL 3.5 - 5.2 g/dL - 2023 Cardiovascular Result Type Result Value Relevant Reference Range Interpre tation Creatine Kinase 38 U/L 30 - 223 U/L - May 17, 2024 Lipid Result Type Result Value Relevant Referen ce Range Interpretation Date Cholesterol, Total 193 mg/dL 0 - 199 mg/dL - Feb Triglycerides 234 mg/dL 0 - 149 mg/dL High February 16, 2024 Cholesterol, Total 193 mg/dL 0 - 199 mg/dL - May Triglycerides 237 mg/dL 0 - 149 mg/dL High May 17, 2024 Immunochemistry Result Type Result Value Relevant Reference Range Interpre tation HCV s/co ratio 0.07 0.00 - 0.79 - November 17, 2023 HCV s/co ratio 0.07 0.00 - 0.79 - May Endocrinology/Thyroid Result Type Result Value Relevant Referen ce Range Interpretation Date TSH 3rd Generation 1.176 mIU/L 0.300 - 3.000 mIU/L - August 18, 2023 TSH 3rd Generation 2.263 mIU/L 0.300 - 3.000 mIU/L - November 17, 2023 TSH 3rd Generation 1.736 mIU/L 0.300 - 3.000 mIU/L - February 16, 2024 TSH 3rd Generation 1.485 mIU/L 0.300 - 3.000 mIU/L - May 17, 2024 Trace Elements Result Type Result Value Relevant Reference Range Interpre tation Date Aluminum < 5 mcg/L 0 - 10 mcg/L - May 17, 2024 Infectious Diseases Result Type Result Value Relevant Referen ce Range Interpretation Date HCV Ab (anti-HCV) Nonreactive No Reference R eyad Provided - May 17, 2024 Hep B Surface Ab (anti-HBs) > 1000 mIU/mL No Reference Range Provided - May 17, 2024 Hep B Surface Ag (HBsAg) Negative No Reference Range Provided - July 19, 2024 DIALYSIS PRESCRIPTION Conventional Hemodialysis Data Element Value Order Date/Time July 14, 2024 Frequency 3X Week Treatment Days MonWedFri Dialyzer [id number] Optiflux Treatment Time (Total Minutes) 240 min Blood Flow Rate (mL/min) 450 mL/min Dialysate Flow Rate Manual 500 Estimated Dry Weight 110 kg Dialysate Concentrate 2.0 K, 2.50 Ca, 1. 0 Mg, 100 Dextrose ([id number]) Sodium (mEq/L) 138 mEq/L Bicarb Machine Setting (mEq/L) 36 mEq/L Dialysis Access Hemodialysis-AV [place] t-Synthetic - Standard (PTFE), Left Thigh, Unknown Access Placed on December 27, 2012 Arterial Needle Size 15g1 Venous Needle Size 15g1 IMMUNIZATIONS Vaccine Date Dose Route Status Flu Vaccine - Flucelvax Trivalent June 02, 2024 0.5 mL Intramuscular Completed Flu Vaccine - Flublok Quadrivalent May 31, 2023 0.5 mL Intramuscular Completed Moderna COVID-19 Vaccine, Bi valent, Booster May 29, 2022 0.5 mL Intramuscular Completed Moderna COVID-19 Vaccine, Additional Dose June 20, 2021 0.5 mL Intramuscular Completed PNEUMOVAX June 13, 2021 0.5 mL Intramuscular Com pleted Moderna COVID-19 Vaccine, Do se 2 of October 18, 2020 0.5 mL Intramuscular Completed Moderna COVID-19 Vaccine, Do se 1 of 2 September 20, 2020 0.5 mL Intramuscular Completed PREVNAR August 30, 2017 0.5 mL Intramuscular Compl eted PNEUMOVAX May 15, 2016 0.5 mL Intramuscular C ompleted TRANSPLANT WAITLIST STATUS No Information on Transplant Waitlist Status ADVANCE DIRECTIVES Directive Description Ordered By Effective Date Resuscitation status Full Code Perry Smith Jun 09, 2024 DIALYSIS TREATMENTS Conventional Hemodialysis Date Pre-Treatment Vitals Post-Treatment Reema ls Duration (hr) BFR (mL/min) Dialysate Dialyzer Dialysis Access Meds Admin Decem 2023 Weight 113.00 kg Weight 110.30 kg 04:01:00 350 2.0 K, 2.50 Ca, 1.0 Mg, 100 Dextrose ([id number]) 160nre Optifl ux Blood Pressure-sitting 159/86 mmHg Blood Pressure-sit ting 123/75 mmHg Blood Pressure-standing 143/84 mmHg Blood Pressure-st anding 125/54 mmHg Heart Rate 76 beats per minute Heart Rate 69 beats per minute Respiratory Rate 18 breaths per minute Respiratory Rate 17 breaths per minute Temperature 97.1 deg. F Temperature 96.0 deg. F July 31, 2024 Weight 113.00 kg Weight 111.00 kg 04:03:00 450 2.0 K, 2.50 Ca, 1.0 Mg, 100 Dextrose ([id number]) 160nre Optiflux Hemodialysis-AV Graft-Synthetic - Standard (PTFE), Left Thigh, Unknown Access Placed on December 27, 2012 Heparin Sodium (Porcine) 1,000 Units/mL Systemic; 5000units,Intravenous - push Loperamide; 2mg,Oral Loperamide; 2mg,Oral Vitamin D (Calcitriol) Oral; 0.5mcg,Oral Blood Pressure-sitting 183/83 mmHg Blood Pressure-sit ting 164/83 mmHg Blood Pressure-standing 177/90 mmHg Blood Pressure-st anding 145/87 mmHg Heart Rate 62 beats per minute Heart Rate 70 beats per minute Respiratory Rate 18 breaths per minute Respiratory Rate 19 breaths per minute Temperature 96.6 deg. F Temperature 98.0 deg. F August 02, 2024 Weight 111.60 kg Weight 110.50 kg 04:01:00 450 2.0 K, 2.50 Ca, 1.0 Mg, 100 Dextrose ([id number]) 160nre Optiflux Hemodialysis-AV Graft-Synthetic - Standard (PTFE), Left Thigh, Unknown Access Placed on December 27, 2012 Heparin Sodium (Porcine) 1,000 Units/mL Systemic; 5000units,Intravenous - push Loperamide; 2mg,Oral Loperamide; 2mg,Oral Vitamin D (Calcitriol) Oral; 0.5mcg,Oral Blood Pressure-sitting 140/84 mmHg Blood Pressure-sit ting 177/80 mmHg Blood Pressure-standing 145/83 mmHg Blood Pressure-st anding 180/89 mmHg Heart Rate 72 beats per minute Heart Rate 62 beats per minute Respiratory Rate 18 breaths per minute Respiratory Rate 19 breaths per minute Temperature 96.8 deg. F Temperature 98.0 deg. F
[2024-08-03 13:36] VITALS: BMI 51.3
--- NOTE | 2024-08-03 13:36 | A.OFFVIS_ITS ---
VS Expanded 08/03/24 13:36 Height 4 ft 10 in Weight 245 lb 5.992 oz BMI 51.3 Intake Visit Reasons: T2DM Allergies cinacalcet [From SENSIPAR] Allergy (Unknown, Verified 06/27/24 10:58) UNKNOWN Sensipar Allergy (Unknown, Uncoded 06/27/24 10:58) Unknown Nutrition Presentation Details: Pt presents for MNT for T2DM Pt reports gradually continuing to work on diet modifications, working on choosing lower fat food options, less processed meats. Pt reports dietary challenges when eating out or at festivities BS Monitoring Most Recent Diabetes Results: No Data to Display [facility] Medical History History of papillary adenocarcinoma of thyroid nursing home (current) use of insulin Diabetic nephropathy associated with type 2 diabetes mellitus ESRD (end stage renal disease) Type 2 diabetes mellitus with chronic kidney disease Diabetes type 2, uncontrolled Non-toxic multinodular goiter Surgical History Hx of partial thyroidectomy Hx of tubal ligation Hx of section History of surgery on lower extremity Hx of breast reduction, elective Hx of removal of cyst Family History Father No problems noted. Mother No problems noted. Other Diabetes Hypertension Social History Household Members: Family Household Members Other:: Sons Alcohol intake: never Patient Tobacco Use Status: Never used Tobacco Assessment & Plan Assessment & Plan (1) Type 2 diabetes mellitus with chronic kidney disease: Code(s): E11.22 - Type 2 diabetes mellitus with diabetic chronic kidney disease Category: Medical Plan: Used wt: 114 kg (01/2024), 110 kg (05/09) , 111kg (08/08) Est kcal needs as per MSJ: 1900 (40% carb, 30% protein/fat) Est fluid needs as per 25 ml/d: 2800 (unless otherwise specified by Est prot per day as per 1 g/kg bw: 114 (unless otherwise specified by MD Recommend fiber intake : 8-10 g per day and gradually increase tolerated Recommend sodium intake per day : less than 2000 mg Educated patient on: ( R = reviewed V = verbalizes understanding N/R = needs review N/A = not applicable * Food sources of carbohydrate, adequate serving sizes and its role in various health conditions: R * Differences between complex carbohydrates a simple carbohydrates, role of fiber in diet: R * Differences between types of fats and role in diet (mono on saturated fat fatty acids, saturated fatty acids, trans fats): R basic low fat, low fat options * Food sources of sodium in salt and healthy modifications for heart health in kidney health: R , written info provided * Vitamins and minerals: R * Healthy plate method concept: R V * Physical activity: Benefits a precaution: R * Hypoglycemia protocol (rule of 15): R, V- written information provided * Dietary prevention of Hyperglycemia: R * food choices when eating out and modifications at festivities: Reviwed and ideas printed 08/08 Coding Level of Care Code Nutr Indiv Subseq ([id number]) Diagnoses Type 2 diabetes mellitus with chronic kidney disease E11.22 Time Spent (min) 20
== END ==
PROVIDERS: PCP Physician Assistant; Visit Provider Dietitian, Registered
DX: E11.22 Type 2 diabetes mellitus with diabetic chronic kidney disease (principal)

== ENCOUNTER → 2024-08-03 13:30 | Outpatient (BNVA) | payer MEDICAID, SELFPAY | PROVIDERS: PCP Physician Assistant; Visit Provider Dietitian, Registered | DX: E11.22 Type 2 diabetes mellitus with diabetic chronic kidney disease (principal); E11.65 Type 2 diabetes mellitus with hyperglycemia; N18.6 End stage renal disease; Z79.4 Long term (current) use of insulin; Z71.3 Dietary counseling and surveillance | CPT/HCPCS: 97803 ==

== ENCOUNTER 2024-08-22 13:24 | Outpatient (AMB) | payer MEDICAID, SELFPAY ==
--- NOTE | 2024-08-22 12:43 | MHC.OFFVIS ---
Vital Signs 08/22/24 13:30 Height 4 ft 10 in Weight 244 lb 11.41 oz BMI 51.1 BP 116/72 Blood Pressure Location Rt brachial Position Sitting Pulse 70 Pulse Source Pulse Oximeter Intake Visit Reasons: T2DM Intake Note: Patient presents today for a follow-up Type 2 Diabetes Mellitus: Patient having difficulty getting Tresiba from the pharmacy Last Diabetic Eye exam: 02/14/2024, No signs of Diabetic Retinopathy Last Podiatry Exam: Does not see a Metal Trades Instructor Most recent HbA1c: 6.9%, 08/22/2024 Random Glucose- 100 mg/dL, Today Senior Vice President And Chief Information Officer Required: Yes Senior Vice President And Chief Information Officer Language: Medical Front Desk Coordinator Services: Senior Vice President And Chief Information Officer Present Senior Vice President And Chief Information Officer Name: VINICIUS Ortega/CLARISA Art Information Interpreted: non-clinical & clinical Accompanied by: Self / Same As Patient Allergies cinacalcet [From SENSIPAR] Allergy (Unknown, Verified 06/27/24 10:58) UNKNOWN Sensipar Allergy (Unknown, Uncoded 06/27/24 10:58) Unknown HPI Comments Details: 63 year old female,her today for follow-up visit, for diabetes management in setting of ESRD. She is also being managed for micro papillary cancer by Dr. Burks and was last seen 06/27/24 with care to be transferred over to thyroid specialist Dr. Diaz with an upcoming appt 01/07. She was last seen by myself 05/16/24 for diabetes. Lantus has been changed to Tresiba. A1C 6.9% 08/22/24. . She is feeling well, she has no complaints. She is on dialysis Wednesday, Wednesday and Fridays. She has DM type 2 diagnosed on 1999. She was hospitalzed in the fall for a cellulitis under the breast. She is being followed for this and open wound is improving. She has PMH of hypertension, hyperlipidemia, and stage renal disease on hemodialysis M/W/F, secondary hyperparathyroidism, status post parathyroidectomy with transplant into the right brachioradialis muscle. 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 Osteopenia. She has all microvascular complications neuropathy , nephropathy and retinopathy. Current medications Tresiba 20 units (is temporarily on Lantus) Humalog scale before meals (+2 to breakfast scale) 81-150 10 units 151-200 12 units 201-250 14 units >250 16units Dexcom average glucose: [ ] 14 day continuous glucose monitor report reviewed Glucose Managment indicator [ ] % Days with CGM data [ ] % TIme in ranges: [ ] % very high (above 250) [ ] % high ?(181-250) [ ] % in range ?(70-180] [ ] % low (69-55) [ ] % ?very low (below 54) [ ] Standard Deviation Interpretation [ ] I Last ophthalmology evaluation uptodate , pt denies retinopathy She is on HD and is anuric, polydipsia +Neuropathy: she is followed by podiatry denies numbness, tingling appt is scheduled for podiatry Retinopathy: last eye exam one month ago 03/2024 getting eye drops for past year ESRD on HD [facility] Medical History History of papillary adenocarcinoma of thyroid oil heaterman (current) use of insulin Diabetic nephropathy associated with type 2 diabetes mellitus ESRD (end stage renal disease) Type 2 diabetes mellitus with chronic kidney disease Diabetes type 2, uncontrolled Non-toxic multinodular goiter Surgical History Hx of partial thyroidectomy Hx of tubal ligation Hx of section History of surgery on lower extremity Hx of breast reduction, elective Hx of removal of cyst Family History Father No problems noted. Mother No problems noted. Other Diabetes Hypertension Social History Household Members: Family Household Members Other:: Sons Alcohol intake: never Patient Tobacco Use Status: Never used Tobacco Physical Exam Vital Signs: Last Vital Signs Pulse 70 08/22/24 13:30 BP 116/72 08/22/24 13:30 BMI result Body Mass Index 51.1 Const Other: Absence of Cushingoid features. Absence of acromegalic features. Neck exam reveals nl size thyroid about 15 gms. No thyroid nodules palpable. Heart S1 S2, Reg R/R. No M/R G. Skin exam reveals absence of vitiligo or acanthosis nigricans. Visual exam of foot performed. No ulcerations or open lesions. No inter digit maceration or fissuring. No onychomycosis, no callouses. Sensation intact to monofilament exam. Vibratory sensation is normal with 128 Hz tuning fork. Results AMB Hemoglobin A1c AMB Hemoglobin A1c 6.9 % Last Edit by VINICIUS Ortega on 08/22/24 13:48 Results Reviewed Results Reviewed: Laboratory Last Values Glucose (Clinic) 100 mg/dL (60-115) 08/22/24 13:35 Hgb A1c (Clinic) 6.9 % (4.0-6.0) H 08/22/24 13:42 Assessment & Plan Assessment & Plan Orders: Orders AMB Hemoglobin A1c Today E11.22 - Type 2 diabetes mellitus with diabetic chronic kidney disease Coding
[2024-08-22 13:30] VITALS: BP 116/72; PULSE 70; BMI 51.1
[2024-08-22 13:43] LABS: Glucose, Whole Blood 100 mg/dL (60-115)
== END 2024-08-22 14:29 | disposition home or self-care (01) ==
PROVIDERS: PCP Physician Assistant; Visit Provider Nurse Practitioner Adult Health
DX: E11.22 Type 2 diabetes mellitus with diabetic chronic kidney disease (principal)

== ENCOUNTER → 2024-08-22 13:24 | Outpatient (BNVA) | payer MEDICAID, SELFPAY | PROVIDERS: PCP Physician Assistant; Visit Provider Nurse Practitioner Adult Health | DX: E11.22 Type 2 diabetes mellitus with diabetic chronic kidney disease (principal) | CPT/HCPCS: 82947; 83036; 99212 ==

== ENCOUNTER 2024-11-21 13:32 | Outpatient (AMB) | payer MEDICAID, SELFPAY ==
--- NOTE | 2024-11-21 10:07 | A.OFFVIS_ITS ---
Vital Signs 11/21/24 13:38 Height 4 ft 10 in Weight 240 lb 4.862 oz BMI 50.2 BP 118/74 Blood Pressure Location Rt brachial Position Sitting Pulse 85 Pulse Source Pulse Oximeter Pulse Oximetry (%) 96 Oxygen Delivery Method Room Air Intake Visit Reasons: T2DM Intake Note: Patient presents today for a follow-up Type 2 Diabetes Mellitus: Last Diabetic Eye exam: 02/14/2024, No signs of Diabetic Retinopathy Last Podiatry Exam: Does not see a Mobile Home Mechanic Most recent HbA1c: DUE, 11/21/2024 Random Glucose- 235 mg/dL, Today Substation Engineer Required: Yes Substation Engineer Language: Roving Teller Services: Substation Engineer Present Substation Engineer Name: VINICIUS Ortega/CLARISA ROMERO Information Interpreted: non-clinical & clinical Accompanied by: Self / Same As Patient Allergies cinacalcet [From SENSIPAR] Allergy (Unknown, Verified 11/21/24 14:17) UNKNOWN Sensipar Allergy (Unknown, Uncoded 11/21/24 14:17) Unknown HPI Comments Details: 64 year old female,her today for follow-up visit, for diabetes management in setting of ESRD. She is also being managed for micro papillary cancer by Dr. Burks and was last seen 06/27/24 with care to be transferred over to thyroid specialist Dr. Diaz with an upcoming appt 01/07. She was last seen by myself 05/16/24 for diabetes. Lantus has been changed to Tresiba. A1C 6.9% 08/22/24. She is feeling well, she has no complaints. She is on dialysis Wednesday, Wednesday and Fridays. She has DM type 2 diagnosed on 1999. She has PMH of hypertension, hyperlipidemia, and stage renal disease on hemodialysis M/W/F, secondary hyperparathyroidism, status post parathyroidectomy with transplant into the right brachioradialis muscle. 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 Osteopenia. She has all microvascular complications neuropathy , nephropathy and retinopathy. Current medications Tresiba 20 units (is temporarily on Lantus) Humalog scale before meals (+2 to breakfast scale) 81-150 10 units 151-200 12 units 201-250 14 units >250 16units Freestyle leena sensor 3 average glucose: [ ] 14 day continuous glucose sensor report reviewed Glucose Management indicator [ ] % Time CGM active [ ] % TIme in ranges: [ ] % very high (above 250) [ ] % high (181-250) [ ] % in range (70-180] [ ] % low (69-55) [ ] % very low (below 54) [ ] Glucose variability [ ] (target <36%) Interpretation of CGMS [ ] Last ophthalmology evaluation uptodate , pt denies retinopathy She is on HD and is anuric, polydipsia +Neuropathy: she is followed by podiatry denies numbness, tingling appt is scheduled for podiatry Retinopathy: last eye exam one month ago 03/2024 getting eye drops for past year ESRD on HD [facility] Medical History History of papillary 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 Mother No problems noted. Other Diabetes Hypertension Social History Household Members: Family Household Members Other:: Sons Alcohol intake: never Patient Tobacco Use Status: Never used Tobacco Physical Exam Vital Signs: Last Vital Signs Pulse 85 11/21/24 13:38 BP 118/74 11/21/24 13:38 Pulse Ox 96 11/21/24 13:38 Oxygen Delivery Method Room Air 11/21/24 13:38 BMI result Body Mass Index 50.2 Results AMB Hemoglobin A1c AMB Hemoglobin A1c 6.2 % Last Edit by VINICIUS Ortega on 11/21/24 14:16 Results Reviewed Results Reviewed: Laboratory Last Values Glucose (Clinic) 235 mg/dL (60-115) H 11/21/24 13:44 Assessment & Plan Assessment & Plan (1) Type 2 diabetes mellitus with chronic kidney disease: Code(s): E11.22 - Type 2 diabetes mellitus with diabetic chronic kidney disease Category: Medical Plan: 64-year-old type 2 diabetic with end-stage renal disease. Most recent A1C 11/21/24 %. A1c may not be an accurate indicator in his patient with ESRD. No recent fructosamine. GMI on sensor download The patient had an opportunity to ask questions regarding treatment plan. The patient expressed understanding and agreement with the above treatment plan. The patient is aware they should contact our office by phone for worsening glucose readings or for any low blood sugars which may warrant a change in diabetes medication. Compliance is encouraged with medications and any followup testing/consults which may have been ordered. Orders: Orders AMB Hemoglobin A1c Today E11.22 - Type 2 diabetes mellitus with diabetic chronic kidney disease Patient Instructions: The patient was counseled to achieve a target A1C of 7% (154 avg). Fasting blood sugars should be 90-130 in the morning and less than 180 two hours after meals. Reviewed the relationship between poor diabetic control and the development of complications. Sick day management reviewed. Check your feet daily looking for any signs of infection, drainage, redness, ulceration and seek medical attention if this occurs. Break in shoes gradually and do not wear open-toed shoes or walk stocking footed or barefooted. Coding Diagnoses Type 2 diabetes mellitus with chronic kidney disease E11.22
[2024-11-21 13:38] VITALS: BP 118/74; PULSE 85; O2SAT 96; BMI 50.2
[2024-11-21 13:48] LABS: Glucose, Whole Blood 235 mg/dL (60-115)
--- OUTSIDE RECORDS SUMMARY | 2024-11-21 16:29 | XMS_ITS | Encounter Summary ---
Author Organization [facility], Address [address] [place] [address] Phone Care Team Providers Care Research Hydraulic Engineer Name Role Phone Heather Longo PA-C Primary Care Provider [phone] Encounter Details Date Type Department Care Team (Late Contact Info) Description 06/12/2022 Documentation Only [facility], [address] [place] [address] Mimi Jones [address] [place] [address] Social History Tobacco Use Types Packs/Day Years Used Date Smoking Tobacco: Never Smokeless Tobacco: Never Alcohol Use Standard Drinks/Week Comments Never 0 (1 standard drink = 0.6 oz pur e alcohol) AUDIT-C Answer Date Recorded Q1: How often do you have a drink containing alc ohol? Never 12/28/2019 Average Number of Drinks Not on file 020 Frequency of Binge Drinking Not on file 12/14 Comments Unknown Sex and Gender Information Value Date Recorded Sex Assigned at Not on file Legal Sex Female 4:34 PM EST Gender Identity Not on file Sexual Orientation Not on file COVID-19 Exposure Response Date Recorded In the last 10 days, have yo u been in contact with someone who was confirmed or suspected to have Coronavirus/COVID-19? No / Unsure 05/14/2022 8:33 AM EDT documented as of this encounter Plan of Treatment Upcoming Encounters Date Type Department Care Team (Late Contact Info) Description 01/30/2025 10:00 AM EDT Procedure visit [facility] [address] [place] [address] documented as of this encounter Visit Diagnoses Not on filedocumented in this encounter Care Teams Research Hydraulic Engineer Relationship Specialty Start Date End Date Heather Longo PA-C [address] [place] [phone] PCP - General 06/20/19 documented as of this encounter
--- OUTSIDE RECORDS SUMMARY | 2024-11-21 16:29 | XMS_ITS | Encounter Summary ---
Author Organization [facility] Address [address] [place] [address] Care Team Providers Care Humane Agent Name Role Phone Heather Longo PA-C Primary Care Provider + [phone] Reason for Visit * Reason Comments Correspondence PT1 Encounter Details Date Type Department Care Team (Late st Contact Info) Description 09/11/2024 Interim Notes [facility] [address] [place] [phone] [place] [address] [place] [phone] Social History Tobacco Use Types Packs/Day Years Used Date Smoking Tobacco: Never Passive Smoke Exposure: Never Smokeless Tobacco: Never Alcohol Use Standard Drinks/Week Comments No 0 (1 standard drink = 0.6 oz pur e alcohol) Social Connections Answer Date Recorded Connectedness 1 03/06/2024 Financial Resource Strain Answer Date R ecorded Financial Resource Strain 1 2023 Stress Answer Date Recorded Stress 1 03/06/2024 Physical Activity Answer Date Recorded Physical Activity 0 07/03/2020 Food Insecurity Answer Date Recorded Food 1 03/06/2024 Transportation Needs Answer Date Record ed Transportation 1 03/06/2024 Housing Stability Answer Date Recorded Housing 1 03/06/2024 Safety and Environment Answer Date Juan rded Safety 0 07/03/2020 Utilities Answer Date Recorded Utilities 1 03/06/2024 Employment Answer Date Recorded Stress 0 07/03/2020 Comments No Sex and Gender Information Value Date Recorded Sex Assigned at Female 03/31/2018 2:10 PM PDT Legal Sex Female 11:36 AM PDT Gender Identity Female 03/31/2018 2:10 PM PDT Sexual Orientation Straight 03/31/2018 2: 10 PM PDT COVID-19 Exposure Response Date Recorded In the last 10 days, have tonya jung been in contact with someone who was confirmed or suspected to have Coronavirus/COVID-19? No / Unsure 08/29/2024 10:05 AM EST documented as of this encounter Plan of Treatment Upcoming Encounters Date Type Department Care Team (Late st Contact Info) Description 11/28/2024 1:40 PM EDT Office Visit [address] [phone] Gissel Roldan, [place] [address] [place] [address] 11/29/2024 1:00 PM EDT Telemedicine Visit [address] [phone] José Luis Ding, RD [address] [place] [address] 12/07/2024 9:40 AM EDT Office Visit [facility] [address] [place] [phone] Edwar Almazan, DDS [address] [place] [address] documented as of this encounter Goals Goal Patient Goal Type Associated Problems Recent Progress Patient-Stated? Author Blood Pressure < 130/80 Blood Pressure Essential hypertension, benign 128/70(2024 8:34 AM EDT) No Jamison Thibodeaux, PharmD HEMOGLOBIN A1C < 7.0 Result Component DM (diabetes mellitus), type 2 with renal complications ([facility]) 6.9( 12:00 AM EST) No Jamison Thibodeaux, PharmD documented as of this encounter Visit Diagnoses Not on filedocumented in this encounter Additional Health Concerns Assessment Noted Time PHQ-9 Depression Total Score: 0 03/06/20 24 8:24 AM PDT documented as of this encounter Care Teams Humane Agent Relationship Specialty Start Date End Date Heather Longo PA-C [address] [place] [phone] PCP - General 02/28/13 documented as of this encounter
--- OUTSIDE RECORDS SUMMARY | 2024-11-21 16:29 | XMS_ITS | Encounter Summary ---
Author Organization [facility], Address [address] [place] [address] Phone Care Team Providers Care Belt Polisher Name Role Phone Heather Longo PA-C Primary Care Provider [phone] Reason for Visit * Reason Comments Med Refill Encounter Details Date Type Department Care Team (Late Contact Info) Description 09/18/2023 Refill [facility] [address] [place] [phone] Lupillo Tang MD [address] [place] [address] Social History Tobacco Use Types Packs/Day Years [...] on file Sexual Orientation Not on file documented as of this encounter Plan of Treatment Upcoming Encounters Date Type Department Care Team (Late Contact Info) Description 01/30/2025 10:00 AM EDT Procedure visit [facility] [address] [place] [phone] documented as of this encounter Visit Diagnoses Not on filedocumented in this encounter Care Teams Belt Polisher Relationship Specialty Start Date End Date Heather Longo PA-C [facility] [place] [phone] PCP - General 06/20/19 documented as of this encounter
--- OUTSIDE RECORDS SUMMARY | 2024-11-21 16:29 | XMS_ITS | Encounter Summary ---
Author Organization [facility], Address [address] [place] [address] Phone Care Team Providers Care Promotions Team Leader Name Role Phone Heather Longo PA-C Primary Care Provider [phone] Reason for Visit * Reason Comments Med Refill Encounter Details Date Type Department Care Team (Late Contact Info) Description 08/15/2022 Refill [facility] [address] [place] [phone] Lupillo Tang MD [address] [place] [address] Social History Tobacco Use Types [...] visit [facility] [address] [place] [phone] documented as of this encounter Visit Diagnoses Not on filedocumented in this encounter Care Teams Promotions Team Leader Relationship Specialty Start Date End Date Heather Longo PA-C [facility] [place] [phone] PCP - General 06/20/19 documented as of this encounter
--- OUTSIDE RECORDS SUMMARY | 2024-11-21 16:29 | XMS_ITS ---
Author Name Irma, Clinic Address [address] [place] [address] Phone [phone] Organization [facility] e, NA DOCUMENT DISCLAIMER Multiple document versions may exist, please be sure you review the latest version. The information in the [facility] Continuity of Care Document represents a summary of certain health and medical information. It may not contain the complete medical history for the patient and should be independently verified. The represented time in the document is Eastern Time. 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, 2024 Abscess of the breast and nipple N61.1 [...] Active Se pt2014 Nausea R11.0 Active April 23, 015 Diarrhea, unspecified R19.7 Active 2014 Pruritus, [...] breath R06.02 Active December 21, 2008 Other emt intermediate (current) drug therapy Z79.899 Ac tive December [...] Dosage Route Start Date End Date Stat Heparin Sodium (Porcine) 1,000 Units/mL Systemic Bolus, 3X Week, Total treatment minutes 240 5000 units Intravenous - push July 24, 2024 July 23, 2025 Active Loperamide PRN-december repeat x1 2 mg Oral May 24, 2024 May 23, 2025 Active Mircera During Dialysis, Every 4 weeks 30 mcg Intravenous - push November 15, 2024 November 14, 2025 Active Vitamin D (Calcitriol) Oral Every Treatment 0.5 mcg Oral March 27, 2024 March 26, 2025 Active Home Medications Medication Instructions Dosage Route Start Date End Date Stat Admelog SoloStar U-100 Insulin 100 unit/mL SUBCUTANEOUS [...] 50 unit SUBCUTANEOUS October 12, 2014 Active lidocaine-priloca ine 2.5-2.5% Apply to skin three times a week 1 a small amount TOPICAL May 21, 2023 Active losartan 100 mg Take by mouth once a day 1 tablet ORAL February 20, 2015 Active Mosby Caps 1 mg Take by mouth once a day 1 capsule ORAL September 20, 2023 Active rifaximin 200 mg Unknown August 13, 2017 Active Sensipar 90 mg Take by mouth once a day 2 tablet ORAL October 06, 2024 Active Sucroferric Oxyhydroxide 500 mg Take By Mouth Three times a day With Meals 2 Tablet By Mouth September 29, 2024 September 27, 2025 Active Sucroferric Oxyhydroxide 500 mg Take By Mouth Three times a day With Meals 2 Tablet By Mouth September 20, 2024 September 20, 2025 Active Velphoro 500 mg Take by mouth three times a day with meals 2 tablet ORAL December 28, 2022 Active VITAL SIGNS Post-Treatment Vital Signs Vital Sign Value Date / Time Blood Pressure-sitting 134/79 mmHg November 20, 2024 11:15 AM Blood Pressure-standing 114/81 mmHg November 11:15 AM Heart Rate 90 beats per minute November 20 11:15 AM Respiratory Rate 16 breaths per minute November 20, 2024 11:15 AM Temperature 97.8 deg. F November 20, 2024 1 1:15 AM Weight Vital Sign Value Date / Time Estimated Dry Weight 107 kg September 11:59 PM Pre-Dialysis 111.80 kg November 20, 2024 1 1:15 AM Post-Dialysis 108.00 kg November 20, 2024 1 1:15 AM Other Other Value Date / Time Height 150 cm June 26 12:00 AM LAB RESULTS Hematology Result Type Result Value Relevant Referen ce Range Interpretation Date Transferrin Sat. (Calc) 53 % 20 - 55 % - June 21 TIBC (Calc) 228 mcg/dL 185 - 515 mcg/dL - 2023 UIBC/TIBC 107 mcg/dL 155 - 355 mcg/dL Low June 21, 2024 Ferritin 1352 ng/mL 10 - 291 ng/mL High June Ferritin 1238 ng/mL 10 - 291 ng/mL High July UIBC/TIBC 72 mcg/dL 155 - 355 mcg/dL Low July 19, 2024 TIBC (Calc) 217 mcg/dL 185 - 515 mcg/dL - 2023 Transferrin Sat. (Calc) 67 % 20 - 55 % High July 19 UIBC/TIBC 164 mcg/dL 155 - 355 mcg/dL - August 18, 2024 TIBC (Calc) 222 mcg/dL 185 - 515 mcg/dL - August 18, 2024 Transferrin Sat. (Calc) 26 % 20 - 55 % - August 18, 2024 Ferritin 1037 ng/mL 10 - 291 ng/mL High August WBC (No Diff) 8.36 1000/mcL 4.80 - 10.80 1000/mcL - August 18, 2024 Hemoglobin x 3 30.6 % 36.0 - 48.0 % Low August 23, 2024 Hemoglobin x 3 31.5 % 36.0 - 48.0 % Low August 30, 2024 Hemoglobin x 3 31.2 % 36.0 - 48.0 % Low September 06, 2024 Hemoglobin x 3 31.5 % 36.0 - 48.0 % Low September 13, 2024 Ferritin 965 ng/mL 10 - 291 ng/mL High September Hemoglobin x 3 30 % 36.0 - 48.0 % Low Februar y 2024 Transferrin Sat. (Calc) 30 % 20 - 55 % - September 20 TIBC (Calc) 213 mcg/dL 185 - 515 mcg/dL - r 2024 UIBC/TIBC 149 mcg/dL 155 - 355 mcg/dL Low September 20, 2024 Iron 64 mcg/dL 30 - 160 mcg/dL - September 20, 2024 Hemoglobin x 3 30.9 % 36.0 - 48.0 % Low Februar y 2024 Hemoglobin x 3 33.6 % 36.0 - 48.0 % Low Februar y 2024 Hemoglobin x 3 34.5 % 36.0 - 48.0 % Low Februar y 2024 Hemoglobin x 3 34.8 % 36.0 - 48.0 % Low October Ferritin 1069 ng/mL 10 - 291 ng/mL High October 18, 2024 UIBC/TIBC 94 mcg/dL 155 - 355 mcg/dL Low October Iron 127 mcg/dL 30 - 160 mcg/dL - October 18, 2024 Transferrin Sat. (Calc) 57 % 20 - 55 % High October 18, 2024 TIBC (Calc) 221 mcg/dL 185 - 515 mcg/dL - October Hemoglobin x 3 35.7 % 36.0 - 48.0 % Low October 142024 HGB 11.9 g/dL 12.0 - 16.0 g/dL Low October HGB 11.6 g/dL 12.0 - 16.0 g/dL Low October Hemoglobin x 3 34.8 % 36.0 - 48.0 % Low October 142024 Hemoglobin x 3 32.1 % 36.0 - 48.0 % Low October 152024 HGB 10.7 g/dL 12.0 - 16.0 g/dL Low October Ferritin 1306 ng/mL 10 - 291 ng/mL High November 15, 2024 Hemoglobin x 3 33.3 % 36.0 - 48.0 % Low November Retic HGB (CHr) 35.5 pg 25.4 - 31.8 pg High November 15, 2024 MCH 32.9 pg 27.0 - 31.0 pg High November 15, 2024 MCHC 33.0 g/dL 30.0 - 36.0 g/dL - November RDW 13.7 % 11.5 - 14.5 % - November 15, HGB 11.1 g/dL 12.0 - 16.0 g/dL Low November WBC (No Diff) 7.96 1000/mcL 4.80 - 10.80 1000/mcL - November 15, 2024 RBC 3.36 mill/mcL 4.20 - 5.40 mill/mcL Low November 15, 2024 HCT 33.5 % 37.0 - 47.0 % Low November 15 Iron 125 mcg/dL 30 - 160 mcg/dL - November 15, 2024 UIBC/TIBC 85 mcg/dL 155 - 355 mcg/dL Low November TIBC (Calc) 210 mcg/dL 185 - 515 mcg/dL - November Transferrin Sat. (Calc) 60 % 20 - 55 % High November 15, 2024 Metabolic/Renal Result Type Result Value Relevant Referen ce Range Interpretation Date Hemoglobin A1c 6.5 % 4.8 - 5.9 % High August BUN/Creat Ratio 4.7 10.0 - 20.0 Low September 20, 2024 Creatinine, Serum 7.28 mg/dL 0.60 - 1.30 mg/dL High September 20, 2024 BUN 34 mg/dL 6 - 19 mg/dL High September 20, 2024 Chloride 103 mEq/L 96 - 108 mEq/L - September Potassium 4.6 mEq/L 3.5 - 5.1 mEq/L - September 20, 2024 Sodium 142 mEq/L 136 - 145 mEq/L - September 20, 2024 BUN, Post 7 mg/dL 6 - 19 mg/dL - September 20, 2024 Bicarbonate 27 mEq/L 22 - 29 mEq/L - September URR, Calc 79 % 65 - 80 % - September 20 Chloride 103 mEq/L 96 - 108 mEq/L - October 18, 2024 Potassium 5.4 mEq/L 3.5 - 5.1 mEq/L High October 18, 2024 Bicarbonate 26 mEq/L 22 - 29 mEq/L - October 18, 2024 Creatinine, Serum 7.68 mg/dL 0.60 - 1.30 mg/dL High October 18, 2024 BUN 47 mg/dL 6 - 19 mg/dL High October 18 Sodium 138 mEq/L 136 - 145 mEq/L - October 18, 2024 BUN/Creat Ratio 6.1 10.0 - 20.0 Low October BUN, Post 9 mg/dL 6 - 19 mg/dL - October 18 URR, Calc 81 % 65 - 80 % High October 18, 2024 Bicarbonate 22 mEq/L 22 - 29 mEq/L - November 15, 2024 Hemoglobin A1c 6.9 % 4.8 - 5.9 % High November 15, 2024 BUN, Post 12 mg/dL 6 - 19 mg/dL - November 15 URR, Calc 75 % 65 - 80 % - November 15, 2024 Chloride 101 mEq/L 96 - 108 mEq/L - November 15, 2024 Creatinine, Serum 7.28 mg/dL 0.60 - 1.30 mg/dL High November 15, 2024 BUN/Creat Ratio 6.6 10.0 - 20.0 Low November Sodium 137 mEq/L 136 - 145 mEq/L - November 15, 2024 Potassium 5.0 mEq/L 3.5 - 5.1 mEq/L - November 15, 2024 BUN 48 mg/dL 6 - 19 mg/dL High November 15 HD Adequacy Result Type Result Value Relevant Referen ce Range Interpretation Date Krt/V 0.00 No Reference Ran ge Provided - June 21, 2024 Krt/V 0.00 No Reference Ran ge Provided - July 19, 2024 Krt/V 0.00 No Reference Ran ge Provided - August 18, 2024 spKt/V (Daugirdas II) 1.84 No Reference Range Provided - September 20, 2024 wstdKt/V 2.6 No Reference Ran ge Provided - September 20, 2024 wstdKt/V without residual 2.6 No Reference Range Provided - September 20, 2024 Krt/V 0.00 No Reference Ran ge Provided - September 20, 2024 spKt/V Gotch 1.91 No Reference Ran ge Provided - September 20, 2024 eKt/V ([place]) 1.61 No Reference Range Provided - September 20, 2024 wstdKt/V, residual 0.0 No Reference Range Provided - September 20, 2024 wstdKt/V without residual 2.6 No Reference Range Provided - October 18, 2024 spKt/V (Daugirdas II) 1.87 No Reference Range Provided - October 18, 2024 wstdKt/V 2.6 No Reference Ran ge Provided - October 18, 2024 Krt/V 0.00 No Reference Ran ge Provided - October 18, 2024 spKt/V Got 1.90 No Reference Ran ge Provided - October 18, 2024 wstdKt/V, residual 0.0 No Reference Range Provided - October 18, 2024 eKt/V ([place]) 1.64 No Reference Range Provided - October 18, 2024 spKt/V Got 1.58 No Reference Ran ge Provided - November 15, 2024 wstdKt/V without residual 2.4 No Reference Range Provided - November 15, 2024 wstdKt/V, residual 0.0 No Reference Range Provided - November 15, 2024 eKt/V ([place]) 1.35 No Reference Range Provided - November 15, 2024 wstdKt/V 2.4 No Reference Ran ge Provided - November 15, 2024 Krt/V 0.00 No Reference Ran ge Provided - November 15, 2024 spKt/V (Daugirdas II) 1.55 No Reference Range Provided - November 15, 2024 Bone/Mineral Result Type Result Value Relevant Referen ce Range Interpretation Date Magnesium 2.2 mg/dL 1.6 - 2.6 mg/dL - December 14 Magnesium 2.1 mg/dL 1.6 - 2.6 mg/dL - January 19, 2024 Magnesium 2.2 mg/dL 1.6 - 2.6 mg/dL - February 16, 2024 Magnesium 2.3 mg/dL 1.6 - 2.6 mg/dL - March Magnesium 2.0 mg/dL 1.6 - 2.6 mg/dL - April 24, 2024 Vitamin D 25 Hydroxy 57.0 ng/mL 30 - 100 ng/mL - May 17, 2024 Magnesium 2.2 mg/dL 1.6 - 2.6 mg/dL - May Magnesium 2.1 mg/dL 1.6 - 2.6 mg/dL - June 21, 2024 PTH-Intact, Plasma 396 pg/mL 16 - 80 pg/mL High Jun PTH-Intact, Plasma 358 pg/mL 16 - 80 pg/mL High Jul Magnesium 2.1 mg/dL 1.6 - 2.6 mg/dL - July 19, 2024 Magnesium 2.3 mg/dL 1.6 - 2.6 mg/dL - August PTH-Intact, Plasma 328 pg/mL 16 - 80 pg/mL High Aug PTH-Intact, Plasma 309 pg/mL 16 - 80 pg/mL High Sep [id number] Magnesium 2.3 mg/dL 1.6 - 2.6 mg/dL - September 20, 2024 Corrected Ca x P Product 43 0 - 54 - September 20 Alkaline Phosphatase 108 U/L 35 - 104 U/L High Fe bruary 2024 Ca x P Product 43 0 - - September Phosphorus 5.0 mg/dL 2.6 - 4.5 mg/dL High September 20, 2024 Calcium, Total 8.5 mg/dL 8.4 - 10.2 mg/dL - 2024 Corrected Ca x P Product 46 0 - 54 - October 18, 2024 Phosphorus 5.3 mg/dL 2.6 - 4.5 mg/dL High October 18, 2024 Calcium, Total 8.5 mg/dL 8.4 - 10.2 mg/dL [facility] 2024 Alkaline Phosphatase 117 U/L 35 - 104 U/L [facility] 2024 Ca x P Product 45 0 - 54 - October 18, 2024 PTH-Intact, Plasma 349 pg/mL 16 - 80 pg/mL High Mar ch 2024 Magnesium 2.3 mg/dL 1.6 - 2.6 mg/dL - October 18, 2024 PTH-Intact, Plasma 336 pg/mL 16 - 80 pg/mL High Apr il 2024 Calcium, Total 8.4 mg/dL 8.4 - 10.2 mg/dL - Apri l 2024 Phosphorus 6.1 mg/dL 2.6 - 4.5 mg/dL High November 15, 2024 Ca x P Product 51 0 - 54 - November 15, 2024 Alkaline Phosphatase 127 U/L 35 - 104 U/L High Ap ril 2024 Corrected Ca x P Product 52 0 - - November 15, 2024 Magnesium 2.2 mg/dL 1.6 - 2.6 mg/dL - November 15, 2024 Liver/Nutrition Result Type Result Value Relevant Reference Range Interpre tation LDH 164 U/L 118 - 273 U/L - August 18, 2024 eNPCR 0.70 No Reference Ran ge Provided - September 20, 2024 Albumin (BCG) 4.0 g/dL 3.5 - 5.2 g/dL - 2024 SGPT (ALT) 14 U/L 7 - 52 U/L - September 20, 025 Albumin (BCG) 3.9 g/dL 3.5 - 5.2 g/dL - October SGPT (ALT) 15 U/L 7 - 52 U/L - October 18, 2024 eNPCR 0.87 No Reference Ran ge Provided - October 18, 2024 LDH 137 U/L 118 - 273 U/L - November 15, 025 Albumin (BCG) 3.8 g/dL 3.5 - 5.2 g/dL - November SGPT (ALT) 18 U/L 7 - 52 U/L - November 15, 2024 eNPCR 0.81 No Reference Ran ge Provided - November 15, 2024 Cardiovascular Result Type Result Value Relevant Reference Range Interpre tation Date Creatine Kinase 44 U/L 30 - 223 U/L - November Lipid Result Type Result Value Relevant Referen ce Range Interpretation Date Cholesterol, Total 200 mg/dL 0 - 199 mg/dL High Zachery uary 2025 Triglycerides 223 mg/dL 0 - 149 mg/dL High August 18, 2024 Triglycerides 240 mg/dL 0 - 149 mg/dL High November Cholesterol, Total 197 mg/dL 0 - 199 mg/dL - Apr 2024 Immunochemistry Result Type Result Value Relevant Reference Range Interpre tation Date HCV s/co ratio 0.07 0.00 - 0.79 - May HCV s/co ratio 0.19 0.00 - 0.79 - November 15, 2024 Endocrinology/Thyroid Result Type Result Value Relevant Referen ce Range Interpretation Date TSH 3rd Generation 1.736 mIU/L 0.300 - 3.000 mIU/L - February 16, 2024 TSH 3rd Generation 1.485 mIU/L 0.300 - 3.000 mIU/L - May 17, 2024 TSH 3rd Generation 1.357 mIU/L 0.300 - 3.000 mIU/L - August 18, 2024 TSH 3rd Generation 2.164 mIU/L 0.300 - 3.000 mIU/L - November 15, 2024 Trace Elements Result Type Result Value Relevant Reference Range Interpre tation Date Aluminum < 5 mcg/L 0 - 10 mcg/L - May 17, 2024 Infectious Diseases Result Type Result Value Relevant Referen ce Range Interpretation Date Hep B Surface Ag (HBsAg) Negative No Reference Range Provided - November 15, 2024 Hep B Surface Ab (anti-HBs) > 1000 mIU/mL No Reference Range Provided - November 15, 2024 HCV Ab (anti-HCV) Nonreactive No Reference R eyad Provided - November 15, 2024 DIALYSIS PRESCRIPTION Conventional Hemodialysis Data Element Value Order Date/Time October 13, 2024 Frequency 3X Week Treatment Days MonWedFri Dialyzer 160NRe Optiflux Treatment Time (Total Minutes) 240 min Blood Flow Rate (mL/min) 450 mL/min Dialysate Flow Rate Manual 500 Estimated Dry Weight 107 kg Dialysate Concentrate 2.0 K, 2.50 Ca, 1. 0 Mg, 100 Dextrose ([id number]) Sodium (mEq/L) 138 mEq/L Bicarb Machine Setting (mEq/L) 36 mEq/L Dialysis Access Hemodialysis-AV [place] t-Synthetic - Standard (PTFE), Left Thigh, Unknown [...] (mL/min) Dialysate Dialyzer Dialysis Access Meds Admin November 15, 2024 Weight 108.50 kg Weight 107.90 kg 03:53:00 460 2.0 K, 2.50 Ca, 1.0 Mg, 100 Dextrose ([id number]) 160nre Optifl ux Blood Pressure-sitting 173/91 mmHg Blood Pressure-sit ting 158/88 mmHg Blood Pressure-standing 144/83 mmHg Blood Pressure-st anding 141/79 mmHg Heart Rate 69 beats per minute Heart Rate 63 beats per minute Respiratory Rate 16 breaths per minute Respiratory Rate 16 breaths per minute Temperature 97.4 deg. F Temperature 97.8 deg. F November 17, 2024 Weight 112.30 kg Weight 108.10 kg 04:00:00 460 2.0 K, 2.50 Ca, 1.0 Mg, 100 Dextrose ([id number]) 160nre Optiflux Hemodialysis-AV Graft-Synthetic - Standard (PTFE), Left Thigh, Unknown Access Placed on December 27, 2012 Heparin Sodium (Porcine) 1,000 Units/mL Systemic; 5000units,Intravenous - push Loperamide; 2mg,Oral Loperamide; 2mg,Oral Vitamin D (Calcitriol) Oral; 0.5mcg,Oral Blood Pressure-sitting 166/72 mmHg Blood Pressure-sit ting 111/70 mmHg Blood Pressure-standing 130/78 mmHg Blood Pressure-st anding 106/72 mmHg Heart Rate 72 beats per minute Heart Rate 76 beats per minute Respiratory Rate 18 breaths per minute Respiratory Rate 18 breaths per minute Temperature 97.4 deg. F Temperature 97.6 deg. F November 20, 2024 Weight 111.80 kg Weight 108.00 kg 03:58:00 350 2.0 K, 2.50 Ca, 1.0 Mg, 100 Dextrose ([id number]) 160nre Optiflux Hemodialysis-AV Graft-Synthetic - Standard (PTFE), Left Thigh, Unknown Access Placed on December 27, 2012 Heparin Sodium (Porcine) 1,000 Units/mL Systemic; 5000units,Intravenous - push Loperamide; 2mg,Oral Loperamide; 2mg,Oral Vitamin D (Calcitriol) Oral; 0.5mcg,Oral Blood Pressure-sitting 166/85 mmHg Blood Pressure-sit ting 134/79 mmHg Blood Pressure-standing 166/103 mmHg Blood Pressure-st anding 114/81 mmHg Heart Rate 68 beats per minute Heart Rate 90 beats per minute Respiratory Rate 14 breaths per minute Respiratory Rate 16 breaths per minute Temperature 97.8 deg. F Temperature 97.8 deg. F
--- OUTSIDE RECORDS SUMMARY | 2024-11-21 16:29 | XMS_ITS | Encounter Summary ---
Author Organization [facility], Address [address] [place] [address] Phone Care Team Providers Care Pharmacy Manager Name Role Phone Heather Longo PA-C Primary Care Provider Encounter Details Date Type Department Care Team (Late st Contact Info) Description 01/04/2024 Documentation Only [facility] [address] [place] [address] [place] [address] Bonnie Cesar [address] [place] [address] Social History Tobacco Use Types [...] Care Team (Late st Contact Info) Description 01/30/2025 10:00 AM EDT Procedure visit [facility] [address] [place] [address] documented as of this encounter Visit Diagnoses Not on filedocumented in this encounter Care Teams Pharmacy Manager Relationship Specialty Start Date End Date Heather Longo PA-C [address] [place] [phone] PCP - General 06/20/19 documented as of this encounter
--- OUTSIDE RECORDS SUMMARY | 2024-11-21 16:30 | XMS_ITS | Encounter Summary ---
Author Organization [facility], Address [address] [place] [address] Phone Care Team Providers Care Rn Transplant Name Role Phone Heather Longo PA-C Primary Care Provider [phone] Reason for Visit * Reason Comments Med Refill Encounter Details Date Type Department Care Team (Late Contact Info) Description 06/15/2023 Refill [facility] [address] [place] [id number] Lupillo Tang MD [address] [place] [address] Social History Tobacco Use Types [...] visit [facility] [address] [place] [phone] documented as of this encounter Visit Diagnoses Not on filedocumented in this encounter Care Teams Rn Transplant Relationship Specialty Start Date End Date Heather Longo PA-C [facility] [place] [phone] PCP - General 06/20/19 documented as of this encounter
--- OUTSIDE RECORDS SUMMARY | 2024-11-21 16:30 | XMS_ITS | Encounter Summary ---
Author Organization [facility], Address [address] [place] [address] Phone Care Team Providers Care Signals Analyst Name Role Phone Heather Longo PA-C Primary Care Provider [phone] Encounter Details Date Type Department Care Team (Late st Contact Info) Description 11/17/2024 Treatment [facility], [address] [place] [phone] Lupillo Goff MD [facility] [address] [place] [phone] End stage renal disease; Dependence on renal dialysis; Type 2 diabetes mellitus with other diabetic kidney complication Social History Tobacco Use Types Packs/Day Years [...] on file documented as of this encounter Miscellaneous Notes * Dialysis Note - Lupillo Goff MD - 11/17/2024 12:00 AM EDT Patient: Madelaine Cage Mcdonald : 1960 Note Type: Dialysis Rounds-Comp Service Date: 11/17/2024 This patient was personally seen for a complete visit as part of routine monthly dialysis care for end stage renal disease. Primary cause of renal failure: E11.29 - Type 2 diabetes mellitus with other diabetic kidney complication Attending Supervisor Wood [employer]: LUPILLO GOFF MD Dialysis Location: [facility] Schedule: Shift: 2 HOME MEDICATIONS Current [facility] Outpatient Medications Admelog SoloStar U-100 Insulin 100 unit/mL insulin pen Bactrim 400-80 mg tablet Take 1 tablet by mouth twice a day. [for 7 days] carvedilol 25 mg tablet Take 1 tablet by mouth twice a day. doxycycline hyclate 100 mg capsule Take 1 capsule twice a day. [TAKE 1 CAPSULE BY MOUTH TWICE A DAY] ergocalciferol (vitamin D2) 1,250 mcg (50,000 unit) capsule Take 1 capsule by mouth once a week. [take 1 pill each wednesday] hydralazine 10 mg tablet Take 1 tablet by mouth twice a day. Lantus U-100 Insulin 100 unit/mL solution Inject 50 unit subcutaneously twice a day. lidocaine-prilocaine 2.5-2.5% cream Apply 1 a small amount to skin three times a week. [apply prior to dialysis] losartan 100 mg tablet Take 1 tablet by mouth once a day. Duval Caps 1 mg capsule Take 1 capsule by mouth once a day. rifaximin 200 mg tablet Sensipar 90 mg tablet Take 2 tablet by mouth once a day. [Take with evening meal] Sucroferric Oxyhydroxide 500 mg chewable tablet Take 2 Tablet By Mouth Three times a day With Meals. [Take 2 before each meal.] Velphoro 500 mg tablet,chewable Take 2 tablet by mouth three times a day with meals. Current [facility] Allergies Allergen: No Known Allergies Allergen: No Known Drug Allergies Allergen: No Known Food Allergies DIALYSIS PRESCRIPTION Treatment Data Treatment Date: 11/17/2024 started at: 11:19 AM Dialysate / Machine Temp (prescribed): 36.0*C Dialysate / Machine Temp (actual): 37.1*C BFR (prescribed): 450 BFR (average delivered): 460 DFR (prescribed): Manual 500 DFR (average delivered): 500 Prescribed Time: 04:00 Actual Time: 04:00 EDW (kg): 107.0 Dialyzer: 160NRe Optiflux Dialysate: 2.0 K, 2.50 Ca, 1.0 Mg, 100 Dextrose ([id number]) Sodium: 138 Bicarb: 36 Pre Dialysis Vitals Pre BP Sit: 166/72 Pre Wt (kg): 112.3 EDW Deviation (kg): 5.3 Temp: 97.4*F Post Dialysis Vitals Post BP Sit: 111/70 Post Wt (kg): 108.1 TREATMENT MEDICATIONS ORDERS Heparin Sodium (Porcine) 1,000 Units/mL Systemic 5000 units IVP 3X Week 07/24/2024 - 07/23/2025 Mircera 30 mcg IVP Every 4 weeks During Dialysis 11/15/2024 - 11/14/2025 Vitamin D (Calcitriol) Oral 0.5 mcg ORAL Every Treatment 03/27/2024 - 03/26/2025 BP AND FLUID ASSESSMENT Post BP Sit 111/70 - 11/17/2024 158/88 - 11/15/2024 139/79 - 11/13/2024 Post Wt (kg) 108.1 - 11/17/2024 107.9 - 11/15/2024 107.8 - 11/13/2024 EDW (kg) 107.0 - 11/17/2024 107.0 - 11/15/2024 107.0 - 11/13/2024 Deviation (kg) 1.1 - 11/17/2024 0.9 - 11/15/2024 0.8 - 11/13/2024 ADEQUACY ASSESSMENT spKt/V (Daugirdas II) 1.87 (10/18/24) 1.84 (09/20/24) 1.72 (08/18/24) eKdrt/V 1.65 (10/18/24) 1.66 (09/20/24) 1.58 (08/18/24) % Urea Reduction 75 (11/15/24) 81 (10/18/24) 79 (09/20/24) BUN 48 (11/15/24) 47 (10/18/24) 34 (09/20/24) BUN Post Dialysis 12 (11/15/24) 9 (10/18/24) 7 (09/20/24) Creatinine 7.28 (11/15/24) 7.68 (10/18/24) 7.28 (09/20/24) Bicarbonate (CO2) 22 (11/15/24) 26 (10/18/24) 27 (09/20/24) Sodium 137 (11/15/24) 138 (10/18/24) 142 (09/20/24) Missed Treatments 0 - Last 30 days 0 - Last 60 days ACCESS ASSESSMENT AVGraft Synthetic - Standard (PTFE) Left Thigh Active (In Use) - 01/30/2013 Placed - 12/27/2012 Access Flow 835 (10/25/24) 1166 (10/02/24) 1048 (09/27/24) ANEMIA ASSESSMENT Hemoglobin 11.1 (11/15/24) 10.7 (11/08/24) 11.6 (11/01/24) Iron Saturation (TSat) 60 (11/15/24) 57 (10/18/24) 30 (09/20/24) Ferritin 1,306 (11/15/24) 1,069 (10/18/24) 965 (09/20/24) Iron 125 (11/15/24) 127 (10/18/24) 64 (09/20/24) TIBC 210 (11/15/24) 221 (10/18/24) 213 (09/20/24) Reticulocyte Hemoglobin 35.5 (11/15/24) 34.8 (08/18/24) 34.3 (05/17/24) MCV 100 (11/15/24) 100 (08/18/24) 98 (05/17/24) BMM ASSESSMENT Calcium 8.4 11/15/24 8.5 10/18/24 8.5 09/20/24 Corrected Calcium 8.6 4/2/25 8.6 10/18/24 8.5 09/20/24 Phosphorus 6.1 11/15/24 5.3 10/18/24 5.0 09/20/24 Calcium Phosphorus Product 51 11/15/24 45 10/18/24 43 09/20/24 PTH 336 11/15/24 349 10/18/24 309 09/20/24 Vitamin D, 25-OH, Total 57.0 05/17/24 Magnesium 2.2 11/15/24 2.3 10/18/24 2.3 09/20/24 Alkaline Phosphatase 127 11/15/24 117 10/18/24 108 09/20/24 Aluminum <5 05/17/24 NUTRITION ASSESSMENT Albumin 3.8 11/15/24 3.9 10/18/24 4.0 09/20/24 Potassium 5.0 11/15/24 5.4 10/18/24 4.6 09/20/24 eNPCR 0.87 10/18/24 0.70 09/20/24 1.20 08/18/24 Hemoglobin A1C 6.9 11/15/24 6.5 08/18/24 7.2 05/17/24 ADDITIONAL LABS WBC 7.96 (11/15/24) 8.36 (08/18/24) 5.08 (05/17/24) TSH 2.164 (11/15/24) 1.357 (08/18/24) 1.485 (05/17/24) Cholesterol 197 (11/15/24) 200 (08/18/24) 193 (05/17/24) Triglycerides 240 (11/15/24) 223 (08/18/24) 237 (05/17/24) Hepatitis B Surface Ab >1,000 (11/15/24) >1,000 (05/17/24) ADDITIONAL COMMENT COMMENTS: Monthly Comprehensive Note Patient is stable Medications reviewed Physical Exam Vital signs: reviewed Lungs: clear Edema: none Impression 1. Adequacy: KT/V was assessed and the dialysis prescription was adjusted as needed. 2. Access: Dialysis access function is acceptable. LLE AVG 3. Hypertension: Blood pressure control and volume status are at goal. 4. Anemia: Labs reviewed and adjustments to regimen made according to anemia management protocol. 5. Mineral Bone Disease: Labs reviewed. Diet and medication adjustment as per protocol. 6. Nutrition: Labs reviewed. Dietary adjustments made in conjunction with cloth bleaching range back tender. 09/20/24 Hypertensive, likely volume related. will challenge EDW (decreased to 109.5kg). 3/ stable same HD RX 11/17 same HD Rx Signed by: LUPILLO GOFF MD on 11/17/2024 at 10:38:41 PM documented in this encounter Plan of Treatment Upcoming Encounters Date Type Department Care Team (Late st Contact Info) Description 01/30/2025 10:00 AM EDT Procedure visit [facility] [address] [place] [address] documented as of this encounter Visit Diagnoses Diagnosis End stage renal disease Dependence on renal dialysis Type 2 diabetes mellitus with other diabetic kidney complication documented in this encounter Care Teams Signals Analyst Relationship Specialty Start Date End Date Heather Longo PA-C [address] [place] [phone] PCP - General 06/20/19 documented as of this encounter
--- OUTSIDE RECORDS SUMMARY | 2024-11-21 16:30 | XMS_ITS | Encounter Summary ---
Author Organization [facility], Address [address] [place] [address] Phone Care Team Providers Care Equipment Worker Name Role Phone Heather Longo PA-C Primary Care Provider [phone] Reason for Visit * Reason Comments Med Refill Encounter Details Date Type Department Care Team (Late Contact Info) Description 06/17/2023 Refill [facility] [address] [place] [phone] Lupillo Tang MD [address] [facility] [place] [address] Social History Tobacco Use Types [...] visit [facility] [address] [place] [phone] documented as of this encounter Visit Diagnoses Not on filedocumented in this encounter Care Teams Equipment Worker Relationship Specialty Start Date End Date Heather Longo PA-C [facility] [place] [phone] PCP - General 06/20/19 documented as of this encounter
--- OUTSIDE RECORDS SUMMARY | 2024-11-21 16:30 | XMS_ITS | Encounter Summary ---
Author Organization [facility], Address [address] [place] [address] Phone Care Team Providers Care Faculty Administrator Name Role Phone Heather Longo PA-C Primary Care Provider Encounter Details Date Type Department Care Team (Late st Contact Info) Description 05/13/2021 Telephone [facility] [address] [place] [phone] Carmen Ramirezsay [address] [place] [address] Social History Tobacco Use Types [...] Exposure Response Date Recorded In the last month, have you been in contact with someone who was confirmed or suspected to have Coronavirus / COVID-19? No / Unsure 05/15/2021 7:34 AM EDT documented as of this encounter Plan of Treatment Upcoming Encounters Date Type Department Care Team (Late st Contact Info) Description 01/30/2025 10:00 AM EDT Procedure visit [facility] [address] [place] [phone] documented as of this encounter Visit Diagnoses Not on filedocumented in this encounter Care Teams Faculty Administrator Relationship Specialty Start Date End Date Heather Longo PA-C [address] [place] [phone] PCP - General 06/20/19 documented as of this encounter
--- OUTSIDE RECORDS SUMMARY | 2024-11-21 16:30 | XMS_ITS | Clinical Summary ---
Author Organization [facility] Address [address] [place] [address] Care Team Providers Care Painter Set Name Role Phone Heather Longo PA-C Primary Care Provider + [phone] Source Comments PLEASE NOTE, if this patient is a minor, it may be UNLAWFUL to discuss sensitive information that is contained in these records (such as FAMILY PLANNING, MENTAL HEALTH or SUBSTANCE ABUSE) with the minor patient's parent or other person without the patient's specific authorization.[facility] Allergies Active Allergy Reactions Criticality Noted Date Comments Amlodipine Rash,Swelling 11/01/2018 Lisinopril High 05/14/2023 Reports rash with this med Losartan High 05/14/2023 Olmesartan High 05/14/2023 Medications blood pressure test kit-largeIndicati ons:Essential hypertension Check BP daily. Dx: I10 Uncontrolled HTN. Lifetime Need. 1 Kit 019 Active sevelamer carbonate (RENVELA) 800 mg tabletIndications :Essential hypertension Take 1 Tab by mouth 3 (three) times daily with meals 90 Tab 11 019 Active acetaminophen (TYLENOL) 325 mg tablet Take 1 Tab by mouth every 6 (six) hours as needed for pain 60 Tab 11 019 Active FREESTYLE LITE METER monitoring kit USE PAVAN LO INDICADO CUATRO VECES AL STEPHEN 1 Each 3 022 Active MISCELLANEOUS MEDICAL SUPPLY MISCIndications:T ype 2 diabetes mellitus with chronic kidney disease, with long-term current use of insulin, unspecified CKD stage (HCC-CMS) by miscellaneous route daily. Diabetic shoes, disp 1 pair, dx diabetes with neuropathy 1 Each 023 Active MISCELLANEOUS MEDICAL SUPPLY MIS by miscellaneous route daily. Diabetic shoe inserts, disp 3 pairs, dx diabetes with neuropathy 3 Each 023 Active HOME CAPS 1 mg per capsuleIndication s:Stage 4 chronic kidney disease ([facility]),Dialysi s patient ([facility] V[facility]) Take 1 Capsule by mouth once daily Active hydrALAZINE (APRESOLINE) 10 mg tablet TOME SINDHU TABLETA DOS VECES AL STEPHEN 180 Tablet 2 024 Active clindamycin-benzo yl peroxide (BENZACLIN) 1-5 % gelIndications:Ac ne, unspecified acne type Apply topically daily. 50 g 3 024 Active pen needle, diabetic (BD MARLENE 2ND GEN PEN NEEDLE) 32 gauge x ndleIndications:T ype 2 diabetes mellitus with chronic kidney disease, with long-term current use of insulin, unspecified CKD stage ([facility]) USE 5 TIMES A DAY WITH INSULIN 200 Each 11 024 Active VELPHORO 500 mg chewIndications:S tage 4 chronic kidney disease ([facility]) CHEW AND SWALLOW 2 TABLETS BY MOUTH 1 TO 2 TIMES DAILY 270 Tablet 1 024 Active carvediloL (COREG) 25 mg tablet TOME SINDHU TABLETA POR VIA ORAL DOS VECES AL STEPHEN CON LAS COMIDAS 180 Tablet 3 024 Active insulin syringe-needle U-100 0.3 mL 30 gauge x 1 syrgIndications:D M (diabetes mellitus), type 2 with renal complications ([facility]) Use 5 times per day, disp 100, 11 refills 100 Each 11 024 Active blood sugar diagnostic (FREESTYLE LITE STRIPS) stripsIndications :Type 2 diabetes mellitus with chronic kidney disease, with long-term current use of insulin, unspecified CKD stage ([facility]) USE 5 TIMES DAILY (INSURANCE MAX 3 TIMES DAILY) 200 Each 024 Active cholecalciferol (VITAMIN D-3) 50 mcg (2,000 unit) capsule TOME SINDHU [place]A [place] 90 Capsule 2 024 Active clindamycin phosphate (CLEOCIN T) 1 % lotionIndications :Folliculitis Apply topically 2 (two) times daily 60 mL 2 025 Active ondansetron ODT (ZOFRAN-ODT) 8 mg disintegrating tabletIndications :Nausea Take 1 Tablet by mouth every 8 (eight) hours as needed for nausea 30 Tablet 4 025 Active insulin degludec 100 unit/mL soln Inject into the skin. Active rosuvastatin (CRESTOR) 10 mg tabletIndications :Type 2 diabetes mellitus with chronic kidney disease, with long-term current use of insulin, unspecified CKD stage ([facility]) Take 1 Tablet by mouth nightly at bedtime 90 Tablet 3 025 Active lidocaine-priloca ine (EMLA) 2.5-2.5 % creamIndications: Stage 4 chronic kidney disease ([facility]) APLIQUE TOPICAMENTE CUANDO SEA NECESARIO PARA EL DOLOR 30 g 025 Active TOUJEO SOLOSTAR U-300 INSULIN 300 unit/mL (1.5 mL)Indications:Ty pe 2 diabetes mellitus with chronic kidney disease, with long-term current use of insulin, unspecified CKD stage ([facility]) INJECT 25 UNITS INTO THE SKIN EVERY MORNING 4.5 mL 6 01/27/ 022 2024 Discontinued(T herapy completed/Not needed) clindamycin phosphate (CLEOCIN T) 1 % lotionIndications :Folliculitis Apply topically 2 (two) times daily 60 mL 2 024 2024 Discontinued(R eorder (E-Cancel Not Sent)) lidocaine-priloca ine (EMLA) 2.5-2.5 % creamIndications: Stage 4 chronic kidney disease ([facility]) APLIQUE TOPICAMENTE CUANDO SEA NECESARIO PARA EL DOLOR 30 g 024 2024 Discontinued Active Problems Problem Noted Date Diagnosed Date Dialysis patient ([facility]) on Wed, Wed, 03/29 Ovarian enlargement, left 08/01/2014 DM (diabetes mellitus), type 2 with renal complications ([facility]) 11/21/2013 Overview (07/10/2015): Endocrine: Dr. 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 Secondary hyperparathyroidis m, status post parathyroidectomy with transplant into the right brachioradialis muscle 11/21/2013 History of papillary adenocarcinoma of thyroid 0 03/13/2013 Encounters Date Type Department Care Team Description 10/26/2024 Interim Notes [address] [phone] Lazara Velasquez [place] 10/24/2024 8:40 AM EDT Office Visit [address] [phone] Heather Longo PA-C Routine general medical examination at a health care facility (Primary Dx); Folliculitis; Nausea; Type 2 diabetes mellitus with chronic kidney disease, with long-term current use of insulin, unspecified CKD stage ([facility]); Morbid obesity ([facility]); Stage 4 chronic kidney disease ([facility]); Essential hypertension, benign; Secondary hyperparathyroidism, status post parathyroidectomy with transplant into the right brachioradialis muscle; Dialysis patient ([facility]) on Wed, Wed, Wednesday; Cervical cancer screening; Colon cancer screening 10/16/2024 Interim Notes [address] [address] Denia Gallagher [place] 10/16/2024 Interim Notes [address] [phone] Denia Gallagher [place] 10/16/2024 Interim Notes [address] [phone] Denia Gallagher [place] 10/10/2024 2:20 PM EST Office Visit [address] [phone] Debbie Rowley DDS Caries (Primary Dx) 10/10/2024 Interim Notes [address] [address] [place] 10/09/2024 Interim Notes [address] [address] Denia Gallagher[place] 10/09/2024 Interim Notes [address] [phone] IanitzelDenia mcgraw, [place] 09/28/2024 10:00 AM EST Telemedicine Visit [address] [phone] Type 2 diabetes mellitus with hyperglycemia, with long-term current use of insulin ([facility]) (Primary Dx) 09/18/2024 Interim Notes [address] [address] [place]quezLazara, [place] 09/11/2024 Interim Notes [address] [address] Denia Gallagher, [place] 09/11/2024 Interim Notes [address] [phone] Denia Gallagher, [place] 08/29/2024 10:20 AM EST Office Visit [id number] [place] [address] Casie Alberto Encounter for dental examination and cleaning with abnormal findings (Primary Dx); Stage 3 grade C generalized periodontitis per AAP/EFP 2017 classification; Caries 08/29/2024 Travel from Last 3 Months Immunizations Immunization Administration Dates Next Due Flu, Preservative Free 06/05/2022,05/30/2021 MODERNA COVID-19 VACCINE BIV ALENT, BLUE CAP, 6M+ 05/29/2022 Moderna COVID-19 Vaccine, re d cap blue label, 12+ Primary Series 06/20/2021,10/18/2020,09/20/2020 PNEUMOCOCCAL CONJUGATE PCV 13 08/30/2017 PNEUMOCOCCAL POLYSACCHARIDE PPV23 06/13/2021, Social History Tobacco Use Types Packs/Day Years Used Date Smoking Tobacco: Never Passive Smoke Exposure: Never Smokeless Tobacco: Never Alcohol Use Standard Drinks/Week Comments No 0 (1 standard drink = 0.6 oz pur e alcohol) Social Connections Answer Date Recorded Connectedness 1 10/24/2024 Financial Resource Strain Answer Date R ecorded Financial Resource Strain 1 2024 Stress Answer Date Recorded Stress 1 10/24/2024 Physical Activity Answer Date Recorded Physical Activity 0 07/03/2020 Food Insecurity Answer Date Recorded Food 1 10/24/2024 Transportation Needs Answer Date Record ed Transportation 1 10/24/2024 Housing Stability Answer Date Recorded Housing 1 10/24/2024 Safety and Environment Answer Date Juan rded Safety 0 07/03/2020 Utilities Answer Date Recorded Utilities 1 10/24/2024 Employment Answer Date Recorded Stress 0 07/03/2020 Comments No Sex and Gender Information Value Date Recorded Sex Assigned at Female 03/31/2018 2:10 PM PDT Legal Sex Female 11:36 AM PDT Gender Identity Female 03/31/2018 2:10 PM PDT Sexual Orientation Straight 03/31/2018 2: 10 PM PDT Last Filed Vital Signs Vital Sign Reading Time Taken Comments Blood Pressure 128/70 10/24/2024 8:34 AM EDT Pulse 96 10/24/2024 8:34 AM EDT Temperature 36.8 ??C (98.3 ??F) 10/24/2024 8:34 AM ED T Respiratory Rate 16 10/24/2024 8:34 AM EDT Oxygen Saturation 94% 10/24/2024 8:34 AM EDT Inhaled Oxygen Concentration - - Weight 107 kg (236 lb) 10/24/2024 8:34 AM EDT Height 147.3 cm (4' 10 ) 10/24/2024 8:34 AM EDT Body Mass Index 49.32 10/24/2024 8:34 AM EDT Plan of Treatment Upcoming Encounters Date Type Department Care Team (Late st Contact Info) Description 11/28/2024 1:40 PM EDT Office Visit [facility] [address] [place] [address] Gissel Roldan, [place] [address] [place] [address] 11/29/2024 1:00 PM EDT Telemedicine Visit [facility] [address] [place] [address] José Luis Ding, RD [address] [place] [address] 12/07/2024 9:40 AM EDT Office Visit [facility] Dental [address] [place] [address] Edwar Almazan, DDS [address] [place] [address] Health Maintenance Due Date Last Done Comments Anxiety Screening [address] Colonography 2006 Fecal DNA 2006 Flexible Sigmoidoscopy 2006 FIT/gFOBT 07/31/2015 07/31/2014 (Declined) Pap Smear 09/29/2021 09/29/2018, 07/16 (Declined) Diabetes Foot Exam 09/22/2023 09/22/2022, 0 08/20/2020, 07/31/2014 (Managed by Outside Provider) Cervical Cancer Screening 09/29/2023 Pap + HPV 09/29/2023 09/29/2018 Colonoscopy 01/20/2024 01/19/2019 Colorectal Cancer Screening 01/20/2024 Dental Perio Charting 08/14/2024 08/12/2023 Retinopathy Screening 11/24/2024 11/25/2023 , 07/31/2014 (Managed by Outside Provider) HIV Screening 01/24/2025 Postponed from 1976 (Patient postponement) Hepatitis C Screening 01/24/2025 Postpo kevin from 1961 (Patient postponement) Imm-DTaP/Tdap/Td (1 - Tdap) 01/24/2025 Postponed from 1980 (Patient postponement) Imm-Zoster, Recombinant (1 of 2) 01/24/2025 Postponed from 11/11/2011 (Patient postponement) Diabetes HbA1c 02/19/2025 08/22/2024, 07/0 09/2018, 05/11/2018, Additional history exists Dental Prophy 02/28/2025 08/29/2024, 04/2024, 09/09/2023 Tobacco Screening 07/03/2025 07/03/2024 Breast Cancer Screening (Mammogram) 08/28/2025 08/28/2023, 04/19/2018, 07/31/2014 (Declined) Dental BW 08/31/2025 08/29/2024, 08/12/2023 Dental Examination 08/31/2025 08/29/2024, 0 02/22/2024, 08/12/2023, Additional history exists Annual Preventive Care Visit 10/24/2025 10/24/2024, 10/19/2023, 09/22/2022, Additional history exists Lipid Screening 10/24/2025 10/24/2024 (Jenae molina by Outside Provider), 07/31/2014 (Managed by Outside Provider) Imm-Pneumococcal (3 of 3 - PCV20 or PCV21) 06/13/2026 06/13/2021, 08/30/2017, 05/15/2016 Dental FMX/Pano 08/14/2028 08/12/2023 [id number] Discontinued 05/29/2022, 12/2020, 10/18/2020, Additional history exists Imm-Influenza Completed 06/02/2024, 05/17, 05/30/2021, Additional history exists Alcohol and Drug Screen Completed 10/25/19 25, 03/06/2024, 07/20/2023, Additional history exists Depression Annual Screen Completed 025, 03/15/2017, 07/31/2014 (Declined) Cervical Ablation/Cold-Knife Conization Discontinued Cervical Cryotherapy Discontinued Colposcopy Discontinued Endometrial Biopsy Discontinued Excision/Leep Discontinued HPV Genotyping Discontinued Vaginal Pap Discontinued Vulvoscopy Discontinued Goals Goal Patient Goal Type Associated Problems Recent Progress Patient-Stated? Author Blood Pressure < 130/80 Blood Pressure Essential hypertension, benign 128/70(2024 8:34 AM EDT) Jamison Esquivel, PharmD HEMOGLOBIN A1C < 7.0 Result Component DM (diabetes mellitus), type 2 with renal complications ([facility]) 6.9( 12:00 AM EST) Jamison Esquivel, PharmD Procedures Procedure Name Priority Date/Time Associated Diagnosis Comments 9 DI RESIN-BASED COMPOSITE TWO SURFACES ANTERIOR Routine 10/10/2024 2:20 PM EST Caries CASE PRESENTATION SUBS DTL & EXTENSIVE TX PLN Routine 10/10/2024 2:20 PM EST Caries PERIODIC ORAL EVALUATION ESTABLISHED PATIENT Routine 08/29/2024 10:20 AM EST Caries Encounter for dental examination and cleaning with abnormal findings Stage 3 grade C generalized periodontitis per AAP/EFP 2017 classification DENTAL CASE MANAGEMENT - MOTIVATIONAL INTV Routine 08/29/2024 10:20 AM EST Caries Encounter for dental examination and cleaning with abnormal findings Stage 3 grade C generalized periodontitis per AAP/EFP 2017 classification PROPHYLAXIS - ADULT Routine 08/29/2024 1 0:20 AM EST Caries Encounter for dental examination and cleaning with abnormal findings Stage 3 grade C generalized periodontitis per AAP/EFP 2017 classification CARIES RISK ASSESSMENT & DOC FINDING HIGH RISK Routine 08/29/2024 10:20 AM EST Caries Encounter for dental examination and cleaning with abnormal findings Stage 3 grade C generalized periodontitis per AAP/EFP 2017 classification NUTRITIONAL COUNSELING CONTROL OF DENTAL DISEASE Routine 08/29/2024 10:20 AM EST Caries Encounter for dental examination and cleaning with abnormal findings Stage 3 grade C generalized periodontitis per AAP/EFP 2017 classification ORAL HYGIENE INSTRUCTIONS Routine 08/29/2024 10:20 AM EST Caries Encounter for dental examination and cleaning with abnormal findings Stage 3 grade C generalized periodontitis per AAP/EFP 2017 classification ORAL CANCER SCREENING Routine 08/29/2024 10:20 AM EST Caries Encounter for dental examination and cleaning with abnormal findings Stage 3 grade C generalized periodontitis per AAP/EFP 2017 classification CASE PRESENTATION SUBS DTL & EXTENSIVE TX PLN Routine 08/29/2024 10:20 AM EST Encounter for dental examination and cleaning with abnormal findings BITEWINGS - TWO RADIOGRAPHIC IMAGES Routine 08/29/2024 10:20 AM EST Caries Encounter for dental examination and cleaning with abnormal findings Stage 3 grade C generalized periodontitis per AAP/EFP 2017 classification HEMOGLOBIN, GLYCOSYLATED (A1C) Routine 08/22/2024 EYE EXAM 11/25/2023 3:00 AM EDT HISTORIC MAMMOGRAM 08/28/2023 3: 00 AM EST COMP PERIODONTAL EVALUATION - NEW/EST PATIENT Routine 08/12/2023 2:20 PM EST Dental caries on smooth surface penetrating into dentin Full INTRAORAL - COMP SERIES OF RADIOGRAPHIC IMAGES Routine 08/12/2023 2:20 PM EST Dental caries on smooth surface penetrating into dentin COLONOSCOPY Routine 01/19/2019 1:16 PM EDT PAP, LIQUID BASED Routine 09/29/2018 1:1 7 PM EST Encounter for gynecological examination without abnormal finding Cervical cancer screening from Last 3 Months or Most Recently Relevant to Health Maintenance Results * (ABNORMAL) HEMOGLOBIN, GLYCOSYLATED (A1C) (08/22/2024) HGB A1C 6.9(A) 4.0 - 5.6 % [facility] ([facility]) Blood Blood / Unknown 08/22/2024 Provider [facility] - BLOOD DRAW Final Result [facility] ([facility]) [address] [place] [id number], * EYE EXAM (11/25/2023 3:00 AM EDT) 11/25/2023 3:00 AM EDT Heather Longo PA-C OTHER Edited Resul t - Final * HISTORIC MAMMOGRAM (08/28/2023 3:00 AM EST) 08/28/2023 3:00 AM EST Heather Longo PA-C IMG MAMMO Edited Resul t - Final * COLONOSCOPY (01/19/2019 1:16 PM EDT) Impressions Denia Gallagher MA - 01/19/2019 1:16 PM EDT Polyps ( 2 mm to 3 mm ) in the ascending colon. 9 Polypectomy ). External hemorrhoids. Colon otherwise normal to Terminal Ileum including retroflexion in the rectum. Mild diverticulosis of the ascending colon and sigmoid colon. Colonoscopy in 3-5 tears us Provider [facility] PROCEDURES Final Result * PAP, LIQUID BASED (09/29/2018 1:17 PM EST) PAP normal NORMAL - ABNORMAL [facility] Specimen from uterine cervix (specimen) Cervix uteri structure / Unknown 09/29/2018 1:17 PM EST Impressions [facility] - 09/29/2018 1:17 PM EST Negative for squamous intraepithelial lesion and malignancy High risk HPV assay: Negative Repeat 5 years us Heather Longo PA-C LAB - NO BLOOD DRAW Final Re sult [facility] [address] [place] [address], from Last 3 Months or Most Recently Relevant to Health Maintenance Insurance [facility] [place] MEDICA[place] DENTAL [address] [facility] Care Teams Painter Set Relationship Specialty Start Date End Date Heather Longo PA-C [address] [place] [address] PCP - General 02/28/13
--- OUTSIDE RECORDS SUMMARY | 2024-11-21 16:30 | XMS_ITS | Clinical Summary ---
Author Organization [facility] Address [address] [place] [address] Phone Care Team Providers Care Behavioral Medical Director Name Role Phone Ruddy Donaldson Primary Care Provider [phone] Allergies Active Allergy Reactions Criticality Noted Date Comments Amlodipine Rash,Swelling 11/01/2018 Lisinopril High 05/14/2023 Reports rash with this med Losartan High 05/14/2023 Olmesartan High 05/14/2023 Medications B complex-vitamin C-folic acid (NEPHROCAPS) 1 mg capsule Take 1 Capsule by mouth. Active carvediloL (COREG) 25 mg tablet TOME SINDHU TABLETA POR VIA ORAL DOS VECES AL STEPHEN CON LAS COMIDAS 4 Active cholecalciferol (VITAMIN D-3) 50 mcg (2,000 unit) capsule Take 50 mcg by mouth. 4 Active hydrALAZINE (APRESOLINE) 10 mg tablet Take 1 tablet (10 mg total) by mouth 2 (two) times a day. 4 Active insulin degludec (TRESIBA) 100 unit/mL injection Inject into the skin. Active insulin glargine U-300 (Toujeo SoloStar U-300 Insulin) 300 unit/mL (1.5 mL) CONCENTRATED injection pen Inject 25 Units into the skin. 2 Active insulin lispro 100 unit/mL injection Inject as directed. Active sucroferric oxyhydroxide (Velphoro) 500 mg chewable tablet CHEW AND SWALLOW 2 TABLETS BY MOUTH 1 TO 2 TIMES DAILY 4 Active ammonium lactate (AmLactin) 12 % lotion Apply topically if needed for dry skin. 400 g 5 10/20/19 26 Active Encounters Date Type Department Care Team Description 10/19/2024 9:30 AM EST Consult Orthopedic Surgery [place] [phone] [phone] Will Suero DPM Xerosis of skin (Primary Dx); Encounter for diabetic foot exam ([facility]); Dermatophytosis of nail; Pain in toe of right foot; Pain in toe of left foot; Corns and callosities; Type II diabetes mellitus with peripheral circulatory disorder ([facility]); Diabetic mononeuropathy simplex ([facility]); Metatarsalgia of both feet; Fissured skin from Last 3 Months Social History Tobacco Use Types Packs/Day Years Used Date Smoking Tobacco: Never Assessed Comments Unknown Sex and Gender Information Value Date Recorded Sex Assigned at Not on file Legal Sex Female 4:09 PM EST Gender Identity Not on file Sexual Orientation Not on file Last Filed Vital Signs Vital Sign Reading Time Taken Comments Blood Pressure 120/60 05/18/2024 12:13 PM EDT Ly ing R Arm Pulse 64 04/25/2024 1:42 PM EDT Temperature - - Respiratory Rate - - Oxygen Saturation - - Inhaled Oxygen Concentration - - Weight 115 kg (253 lb) 10/19/2024 10:54 AM EST Height 157.5 cm (5' 2 ) 10/19/2024 10:54 AM EST Body Mass Index 46.27 10/19/2024 10:54 AM EST Plan of Treatment Upcoming Encounters Date Type Department Care Team (Late Contact Info) Description 12/19/2024 9:30 AM EDT Office Visit Orthopedic Surgery [facility] [address] [phone] Will Suero DPM [address] [address] Health Maintenance Due Date Last Done Comments Diabetes: Annual GFR (Glomerular Filtration Rate) 1961 Diabetes: Annual Foot Exam 11/11/1971 Diabetes: Annual Retina Eye Exam 11/11/1971 DTaP,Tdap,and Td Vaccines (1 - Tdap) 1980 Zoster Vaccines (1 of 2) 1980 Cervical Cancer Screening: Pap Smear 09/29/2021 09/29/2018 RSV Immunization Adult Patients (1 - Risk 60-74 years 1-dose series) 2021 Cholesterol Screening (Lipid Panel) 07/15/2022 Colorectal Cancer Screening: Colonoscopy 07/15/2022 HIV Screening 07/15/2022 Hepatitis C Screening 07/15/2022 Social Influencers of Health Screening 07/15/2022 COVID-19 Vaccine ( season) 2024 05/29/2022, 12/11/2021, 06/20/2021, Additional history exists Diabetes: Annual Urine Albumin-Creatinine Ratio (uACR) 05/24/2024 Diabetes: Blood Sugar Control Test (HGBA1C) 05/24/2024 Hypertension/CHF/CAD Annual BMP Blood Test 06/20/2024 Depression Screening 03/06/2025 03/06/2024 Breast Cancer Screening 08/30/2025 08/30/2023 Pneumococcal Vaccine: 50+ Years (4 of 4 - PCV20 or PCV21) 06/13/2026 06/13/2021, 08/30/2017, 05/15/2016 Pneumococcal Vaccine: Pediatrics (0 to 5 Years) and At-Risk Patients (6 to 64 Years) (4 of 4 - PCV20 or PCV21) 06/13/2026 06/13/2021, 08/30/2017, 05/15/2016 Influenza Vaccine Completed 06/02/2024, , 06/05/2022, Additional history exists HIB Vaccines Aged Out No longer eligi ble based on patient's age to complete this topic HPV Vaccines Aged Out No longer eligi ble based on patient's age to complete this topic Hepatitis A Vaccines Aged Out No long er eligible based on patient's age to complete this topic Hepatitis B Vaccines Aged Out No long er eligible based on patient's age to complete this topic IPV Vaccines Aged Out No longer eligi ble based on patient's age to complete this topic MMR Vaccines Aged Out No longer eligi ble based on patient's age to complete this topic Meningococcal ACWY Vaccine Aged Out N o longer eligible based on patient's age to complete this topic Meningococcal B Vaccine Aged Out No l onger eligible based on patient's age to complete this topic RSV Immunization Patients Under 20 months Aged Out No longer eligible based on patient's age to complete this topic Varicella Vaccines Aged Out No longer eligible based on patient's age to complete this topic Procedures Procedure Name Priority Date/Time Associated Diagnosis Comments [facility] SCREENING DIGITAL Routine 08/30/2023 9:08 AM EST Encounter for screening mammogram for malignant neoplasm of breast from Last 3 Months or Most Recently Relevant to Health Maintenance Results * [facility] SCREENING DIGITAL (08/30/2023 9:08 AM EST) Anatomical Region Laterality Modality Mammography 08/26/2023 8:54 AM EST Narrative 08/30/2023 9:[address] [facility] Diagnostic Imaging Department [address] [place] [address] Patient: ??MADELAINE MCNAIR ?/Age/Sex: 1960 - 62 - F Unit#: ??[id number] ? Location/Status: ??SPDIMAM/REG CLI ? Mnemonic/Ordering Site: ??DIGSC/SPMAM Ordering Physician: ??RUDDY DONALDSON [facility] Screening Digital - 08/28/23 - 1145 Report Status:Signed EXAM: [facility] Screening Digital EXAM DATE AND TIME: 08/28/2023 11:45 AM HISTORY: ??Annual screening COMPARISON: ??Multiple exams dating back to 2010 TECHNIQUE: Bilateral digital breast tomosynthesis was performed in the CC and MLO projections. Computer aided detection with WonderHowTo 3D 3.1 was employed. TISSUE DENSITY: b. There are scattered areas of fibroglandular density. FINDINGS: No suspicious masses, grouped microcalcifications, or areas of architectural distortion are seen. The skin and vascularity are unremarkable. IMPRESSION: Stable mammographic appearance of the breasts. ??No evidence of malignancy is seen. A negative mammogram in the presence of a clinically suspicious palpable abnormality does not preclude the possibility of malignancy or alter the indications for biopsy. BI-RADS: ??Category 1: Negative RECOMMENDATION(S): 1: Routine screening mammogram BILATERAL in 1 year. 3341F, 7025F Dictating Physician: ??MAREK ENGLAND MD Electronically Signed by: ??MAREK ENGLAND MD Dic Date/Time: ??08/30/23 0906 Sign date/Time: ??08/30/23 0908 Procedure Note Marek England MD - 04/03/2024 [facility] Diagnostic Imaging Department [address] [place] [id number] Patient: MADELAINE MCNAIRO.B./Age/Sex: 1960 - 62 - F Unit#: [id number] Location/Status: SPDIMAM/REG CLI Mnemonic/Ordering Site: [facility] Ordering Physician: RUDDY DONALDSON [facility] Screening Digital - 08/28/23 - 1145 Report Status:Signed EXAM: [facility] Screening Digital EXAM DATE AND TIME: 08/28/2023 11:45 AM HISTORY: Annual screening COMPARISON: Multiple exams dating back to 2010 TECHNIQUE: Bilateral digital breast tomosynthesis was performed in the CCand MLO projections. Computer aided detection with WonderHowTo 3D 3.1was employed. TISSUE DENSITY: b. There are scattered areas of fibroglandular density. FINDINGS: No suspicious masses, grouped microcalcifications, or areas ofarchitectural distortion are seen. The skin and vascularity are unremarkable. IMPRESSION: Stable mammographic appearance of the breasts. No evidence of malignancyis seen. A negative mammogram in the presence of a clinically suspicious palpable abnormality does not preclude the possibility of malignancy or alter the indications for biopsy. BI-RADS: Category 1: Negative RECOMMENDATION(S): 1: Routine screening mammogram BILATERAL in 1 year. 3341F, 7025F Dictating Physician: MAREK ENGLAND MD Electronically Signed by: MAREK ENGLAND MD Dic Date/Time: 08/30/23905 Sign date/Time: 08/30/23907 Ruddy DUNNE IMG BI PROCEDURES Final Result from Last 3 Months or Most Recently Relevant to Health Maintenance Insurance [place] Advance Directives Documents on File Type Date Recorded Patient Grappler Expl anation Health Care Decision (hx) 11/05/2021 AD CASAS DIRECTIVE Health Care Decision (hx) 06/30/2013 AD CASAS DIRECTIVE Health Care Decision (hx) 06/30/2013 AD CASAS DIRECTIVE Health Care Decision (hx) 06/30/2013 AD CASAS DIRECTIVE Health Care Decision (hx) 06/30/2013 AD CASAS DIRECTIVE Health Care Decision (hx) 06/30/2013 AD CASAS DIRECTIVE Health Care Decision (hx) 06/30/2013 AD CASAS DIRECTIVE Health Care Decision (hx) 06/30/2013 AD CASAS DIRECTIVE Health Care Decision (hx) 06/30/2013 AD CASAS DIRECTIVE Health Care Decision (hx) 06/30/2013 AD CASAS DIRECTIVE Health Care Decision (hx) 06/30/2013 AD CASAS DIRECTIVE Health Care Decision (hx) 06/30/2013 AD CASAS DIRECTIVE Health Care Decision (hx) 06/30/2013 AD CASAS DIRECTIVE Health Care Decision (hx) 06/30/2013 AD CASAS DIRECTIVE Health Care Decision (hx) 06/30/2013 AD CASAS DIRECTIVE Health Care Decision (hx) 06/30/2013 AD CASAS DIRECTIVE Health Care Decision (hx) 06/30/2013 AD CASAS DIRECTIVE Health Care Decision (hx) 06/30/2013 AD CASAS DIRECTIVE Health Care Decision (hx) 06/30/2013 AD CASAS DIRECTIVE Health Care Decision (hx) 06/30/2013 AD CASAS DIRECTIVE Health Care Decision (hx) 06/30/2013 AD CASAS DIRECTIVE Health Care Decision (hx) 06/30/2013 AD CASAS DIRECTIVE Health Care Decision (hx) 06/30/2013 AD CASAS DIRECTIVE Health Care Decision (hx) 06/30/2013 AD CASAS DIRECTIVE Health Care Decision (hx) 06/14/2013 AD CASAS DIRECTIVE Health Care Decision (hx) 06/14/2013 AD CASAS DIRECTIVE Health Care Decision (hx) 06/14/2013 AD CASAS DIRECTIVE Health Care Decision (hx) 06/14/2013 AD CASAS DIRECTIVE Health Care Decision (hx) 06/14/2013 AD CASAS DIRECTIVE Health Care Decision (hx) 06/14/2013 AD CASAS DIRECTIVE Health Care Decision (hx) 06/14/2013 AD CASAS DIRECTIVE Health Care Decision (hx) 06/14/2013 AD CASAS DIRECTIVE Health Care Decision (hx) 06/14/2013 AD CASAS DIRECTIVE Health Care Decision (hx) 06/14/2013 AD CASAS DIRECTIVE Health Care Decision (hx) 06/14/2013 AD CASAS DIRECTIVE Health Care Decision (hx) 06/14/2013 AD CASAS DIRECTIVE Health Care Decision (hx) 06/14/2013 AD CASAS DIRECTIVE Health Care Decision (hx) 06/14/2013 AD CASAS DIRECTIVE Health Care Decision (hx) 06/14/2013 AD CASAS DIRECTIVE Health Care Decision (hx) 06/14/2013 AD CASAS DIRECTIVE Health Care Decision (hx) 06/14/2013 AD CASAS DIRECTIVE Health Care Decision (hx) 06/14/2013 AD CASAS DIRECTIVE Health Care Decision (hx) 06/14/2013 AD CASAS DIRECTIVE Health Care Decision (hx) 06/14/2013 AD CASAS DIRECTIVE Health Care Decision (hx) 06/14/2013 AD CASAS DIRECTIVE Health Care Decision (hx) 06/14/2013 AD CASAS DIRECTIVE Health Care Decision (hx) 06/14/2013 AD CASAS DIRECTIVE Care Teams Behavioral Medical Director Relationship Specialty Start Date End Date Ruddy Donaldson PA [address] [place] [address] PCP - General Internal Medicine 05/10/13
--- OUTSIDE RECORDS SUMMARY | 2024-11-21 16:30 | XMS_ITS | Encounter Summary ---
Author Organization [facility], Address [address] [place] [address] Phone Care Team Providers Care Dermatologist Managing Partner Name Role Phone Heather Longo PA-C Primary Care Provider [phone] Reason for Visit * Reason Comments Med Refill Encounter Details Date Type Department Care Team (Late Contact Info) Description 12/12/2021 Refill [facility] [address] [place] [phone] Perry Smith MD [address] [place] [address] Social History Tobacco Use Types [...] have Coronavirus / COVID-19? No / Unsure 11/13/2021 8:46 AM EDT documented as of this encounter Plan of Treatment Upcoming Encounters Date Type Department Care Team (Late Contact Info) Description 01/30/2025 10:00 AM EDT Procedure visit [facility] - [facility] [address] [place] [phone] documented as of this encounter Visit Diagnoses Not on filedocumented in this encounter Care Teams Dermatologist Managing Partner Relationship Specialty Start Date End Date Heather Longo PA-C [address] [place] [phone] PCP - General 06/20/19 documented as of this encounter
--- OUTSIDE RECORDS SUMMARY | 2024-11-21 16:30 | XMS_ITS | Encounter Summary ---
Author Organization [facility], Address [address] [place] [address] Phone Care Team Providers Care Production Lead Name Role Phone Heather Longo PA-C Primary Care Provider [phone] Reason for Visit * Reason Comments Med Refill Encounter Details Date Type Department Care Team (Late Contact Info) Description 09/22/2024 Refill [facility] [address] [place] [phone] Lupillo Tang MD [address] [place] [address] Social History Tobacco Use Types [...] visit [facility] - [facility] Center [address] [place] [phone] documented as of this encounter Visit Diagnoses Not on filedocumented in this encounter Care Teams Production Lead Relationship Specialty Start Date End Date Heather Longo PA-C [facility] [place] [phone] PCP - General 06/20/19 documented as of this encounter
--- OUTSIDE RECORDS SUMMARY | 2024-11-21 16:30 | XMS_ITS | Clinical Summary ---
Author Organization [facility], Address [address] [place] [address] Phone Care Team Providers Care Conference Service Coordinator Name Role Phone Heather Longo PA-C Primary Care Provider Allergies Active Allergy Reactions Criticality Noted Date Comments Amlodipine Swelling,Rash Medium 11/01/2018 Change in mental status per pt Cinacalcet GI intolerance,Other (see comments) High 08/31/2019 Lisinopril High 05/14/2023 Reports rash with this med Losartan Diarrhea Medium 05/14/2023 And watery eyes Olmesartan High 05/14/2023 Benicar- Pt unaware of rxn/ allergy Valsartan Diarrhea,Other (see comments) Medium 09/14/2023 Watery eyes Medications Insulin Glargine, 1 Unit Dial, 300 UNIT/ML solution pen-injector Inject 25 Units under the skin every morning 9 Active Sucroferric Oxyhydroxide 500 MG chewable tablet Chew 2 tablets 3 (three) times a day Active lidocaine-priloc madelin (EMLA) cream APLIQUE TOPICAMENTE NEEDED FOR PAIN 30 g 11 2 Active B Rmvoiht-M-Jaics Acid ([place] Caps) 1 MG capsule TAKE 1 CAPSULE BY MOUTH EVERY DAY 30 capsule 11 2 Active Insulin Lispro 100 UNIT/ML solution See Instructions, 10-20 units TID w/ meals per the patient, # 7.5 mL, 2 Refills, Maintenance, 12/07/12 9:21:47 3 Active cholecalciferol (VITAMIN D-3) 50 MCG (2000 UT) capsule Take by mouth 1 (one) time each day 3 Active carvedilol (COREG) 12.5 MG tablet TAKE 1 TABLET BY MOUTH TWICE A DAY 180 tablet 3 3 Active ergocalciferol 1.25 MG (89184 UT) capsule Take 50,000 Units by mouth 1 (one) time per week Active latanoprost (XALATAN) 0.005 % ophthalmic solution INSTILL 1 DROP INTO LEFT EYE AT BEDTIME 3 Active hydrALAZINE (APRESOLINE) 10 MG tablet Take 10 mg by mouth in the morning and 10 mg in the evening. 4 Active BENZAC AC WASH 10 % external wash APPLIQUE A LA AXILLA AND GROIN EVERY DAY WASH OFF 4 Active acetaminophen (TYLENOL) 325 MG tablet Take by mouth every 6 (six) hours if needed for mild pain Active doxycycline (VIBRAMYCIN) 100 MG capsule Take 100 mg by mouth in the morning and 100 mg in the evening. Take with a full glass of water and do not lie down for at least 30 minutes after.. Active Hospital, Clinic, or Other Facility Administered Medication Ordered Dose Route Frequency Start Date End Date Status fentaNYL (SUBLIMAZE) injection 50 mcgIndications:Stage 5 chronic kidney disease (HCC) 50 mcg IV As needed 09/07/2019 Active Active Problems Problem Noted Date Diagnosed Date Abscess of the breast and nipple 06/05/2024 Gestational diabetes mellitus 09/14/2023 Acute adrenal insufficiency 11/17/2022 Binge eating disorder 05/14/2022 Mass of ovary 05/14/2022 Unspecified fracture of shaft of left fibula, se quela 11/05/2021 Xerosis cutis 09/04/2020 Hidradenitis suppurativa 04/10/2020 Melanocytic nevus of right upper limb including shoulder 04/10/2020 Melanocytic nevus of trunk 04/10/2020 Postinflammatory hyperpigmentation 04/10/2020 Depressive disorder 08/31/2019 Dependence on renal dialysis 08/31/2019 Hyperkalemia 08/31/2019 Essential hypertension 08/31/2019 Hypoparathyroidism 08/31/2019 Major depression, single episode 08/31/2019 Renal disorder due to type 2 diabetes mellitus 0 08/31/2019 Hypoglycemia 05/10/2015 Infection and inflammatory r eaction due to other cardiac and vascular devices, implants and grafts, initial encounter 09/21/2014 Coagulation defect 08/27/2014 Hypertrophy of ovary 08/01/2014 Chronic kidney disease 11/21/2013 Obesity 11/21/2013 History of papillary adenocarcinoma of thyroid 0 03/13/2013 Gastro-esophageal reflux disease without esophag itis 12/12/2012 Hyperlipidemia 08/14/2012 Anemia in chronic kidney disease 08/14/2010 Secondary hyperparathyroidism of renal origin Acquired absence of both cervix and uterus 08/14 End stage renal disease 12/07/2008 Type 2 diabetes mellitus 12/07/2008 Overview (11/14/2020): Endocrine: Dr. Timur Singhtus 50 units BID Humalog 10-15 with meals on dialysis days Humalog 20-25 with meals on non dialysis days Endocrine: Dr. Ding Lantus 50 units BID Humalog 10-15 with meals on dialysis days Humalog 20-25 with meals on non dialysis days Encounters Date Type Department Care Team Description 11/17/2024 Treatment [facility], [address] [place] [address] Lupillo Tang MD End stage renal disease; Dependence on renal dialysis; Type 2 diabetes mellitus with other diabetic kidney complication 11/15/2024 Orders Only [facility] [address] [address] Perry Smith MD 11/08/2024 Orders Only [facility] [address] [address] Perry Smith MD 11/08/2024 Treatment [facility], [address] [place] [address] Ginger Dill FNP-C End stage renal disease; Dependence on renal dialysis; Type 2 diabetes mellitus with other diabetic kidney complication 11/01/2024 Orders Only [facility] [address] [address] Perry Smith MD 11/01/2024 Treatment [facility] [address] [place] [address] Ginger Dill FNP-C End stage renal disease; Dependence on renal dialysis; Type 2 diabetes mellitus with other diabetic kidney complication 10/25/2024 Orders Only [facility] [address] [address] Perry Smith MD 10/25/2024 Treatment [facility] [address] [place] [address] Ginger Dill FNP-C End stage renal disease; Dependence on renal dialysis; Type 2 diabetes mellitus with other diabetic kidney complication 10/20/2024 Treatment [facility] [address] [place] [address] Lupillo Tang MD End stage renal disease; Dependence on renal dialysis; Type 2 diabetes mellitus with other diabetic kidney complication 10/18/2024 Orders Only [facility] [address] [address] Perry Smith MD 10/11/2024 Orders Only [facility] [address] [address] Perry Smith MD 10/11/2024 Treatment [facility] [address] [place] [address] Ginger Dill FNP-C 10/04/2024 Orders Only [facility] [address] [address] Perry Smith MD 10/04/2024 Treatment [facility] [address] [place] [address] Ginger Dill FNP-C 09/29/2024 Treatment [facility] [address] [place] [address] Lupillo Tang MD 09/27/2024 Orders Only [facility] [address] [address] Perry Smith MD 09/22/2024 Refill [facility] [address] [address] Lupillo Tang MD 09/20/2024 Orders Only [facility] [address] [address] Perry Smith MD 09/20/2024 Treatment [facility] [address] [place] [address] Ginger Dill, ASSIGNMENT DESK EDITOR-C 09/13/2024 Orders Only [facility] [address] [address] Perry Smith MD 09/13/2024 Treatment [facility] [address] [place] [address] Ginger Dill ASSIGNMENT DESK EDITOR-C 09/06/2024 Orders Only [facility] [address] [address] Perry Smith MD 09/06/2024 Treatment [facility] [address] [place] [address] Ginger Dill ASSIGNMENT DESK EDITOR-C 09/01/2024 Treatment [facility] [address] [place] [address] Lupillo Tang MD 08/30/2024 Orders Only [facility] [address] [address] Perry Smith MD 08/23/2024 Orders Only [facility] [address] [phone] Perry Smith MD 08/23/2024 Treatment [facility], [address] [place] [phone] Froilan Steven PA from Last 3 Months Social History Tobacco [...] Sign Reading Time Taken Comments Blood Pressure 179/93 07/18/2024 9:36 AM EST Pulse 61 07/18/2024 9:36 AM EST Temperature 36.7 ??C (98.1 ??F) 07/18/2024 9:36 AM ES T Respiratory Rate 16 07/18/2024 9:36 AM EST Oxygen Saturation 95% 07/18/2024 9:36 AM EST Inhaled Oxygen Concentration - - Weight 109 kg (240 lb) 07/18/2024 9:36 AM EST Height 144.8 cm (4' 9 ) 07/18/2024 9:36 AM EST Body Mass Index 51.94 07/18/2024 9:36 AM EST Plan of Treatment Upcoming Encounters Date Type Department Care Team (Late st Contact Info) Description 01/30/2025 10:00 AM EDT Procedure visit [facility] [address] [place] [phone] Health Maintenance Due Date Last Done Comments Breast Cancer Screening 1961 Hepatitis B Vaccine (1 of 5 - Risk Dialysis 4-dose series) 1981 Colorectal Cancer Screening: Annual FOBT 2010 Colorectal Cancer Screening: Colonoscopy 2010 Colorectal Cancer Screening: Sigmoidoscopy 2010 Diabetes: Ophthalmology Exam 08/31/2019 Diabetes: Pedal Pulse Checked 08/31/2019 Diabetes: Sensory Foot Exam 08/31/2019 Diabetes: Visual Foot Exam 08/31/2019 Diabetes: Hemoglobin A1C 02/14/2025 025, 08/22/2024, 08/18/2024, Additional history exists Pneumococcal Vaccine: Pediat rics (0 to 5 Years) and At-Risk Patients (6 to 64 Years) (4 of 4 - PPSV23 or PCV20) 2026 06/13/2021, 08/30/2017, 05/15/2016 Influenza Vaccine Completed 06/02/2024, , 06/05/2022, Additional history exists Procedures Procedure Name Priority Date/Time Associated Diagnosis Comments [facility] RESULTS Routine 11/15/2024 THYROIDS Routine 11/15/2024 HD KINETICS Routine 11/15/2024 POST CHEMISTRY Routine 11/15/2024 IMMUNO CHEMISTRY Routine 11/15/2024 CHEMISTRY Routine 11/15/2024 SPECIAL CHEMISTRY Routine 11/15/2024 CHEMISTRY Routine 11/15/2024 SPECIAL CHEMISTRY Routine 11/15/2024 HEMATOLOGY Routine 11/15/2024 HEMATOLOGY Routine 11/08/2024 HEMATOLOGY Routine 11/01/2024 HEMATOLOGY Routine 10/25/2024 [facility] RESULTS Routine 10/18/2024 HD KINETICS Routine 10/18/2024 POST CHEMISTRY Routine 10/18/2024 CHEMISTRY Routine 10/18/2024 IMMUNO CHEMISTRY Routine 10/18/2024 CHEMISTRY Routine 10/18/2024 HEMATOLOGY Routine 10/18/2024 HEMATOLOGY Routine 10/11/2024 HEMATOLOGY Routine 10/04/2024 HEMATOLOGY Routine 09/27/2024 [facility] RESULTS Routine 09/20/2024 HD KINETICS Routine 09/20/2024 IMMUNO CHEMISTRY Routine 09/20/2024 CHEMISTRY Routine 09/20/2024 POST CHEMISTRY Routine 09/20/2024 HEMATOLOGY Routine 09/20/2024 CHEMISTRY Routine 09/20/2024 HEMATOLOGY Routine 09/13/2024 HEMATOLOGY Routine 09/06/2024 HEMATOLOGY Routine 08/30/2024 HEMATOLOGY Routine 08/23/2024 from Last 3 Months Results * THYROIDS (11/15/2024) TSH 2.164 0.300 - 3.000 mIU/L [facility] Comment: The reference range of 0.300-3.000 mIU/L is recommended by the [place] [employer]ocrin[employer] (AACE). An ESRD population contains about 20% of individuals with TSH of up to 20 mIU/L and normal free T4 consistent with non-thyroidal illness. ESRD patients with true hypothyroidism develop persistent values above 20 mIU/L. 11/15/2024 11/16/2024 10: 45 AM EDT Narrative [facility] - 11/17/2024 Unless otherwise specified, test(s) performed at: [facility], [address] [place] [id number] CAFE SERVER: Praveen Ryan M.D. For any questions, please call customer service at FREQUENCY:MONTHLY Resulting Agency Comment Specimen source: Serum Perry Smith MD LAB BLOOD ORDERABLES Final Re sult Performing Organization Address [facility] Co de Phone Number [facility] See order comments or contact performing lab Unknown, [place] * HD KINETICS (11/15/2024) Only the most recent of3 resultswithin the time period is included. % Urea Reduction 75 65 - 80 % [facility] 11/15/2024 11/16/2024 12: 58 PM EDT Narrative Resulting Agency Comment Specimen source: Plasma Perry Smith MD LAB BLOOD ORDERABLES Final Re sult Performing Organization Address [facility] de Phone Number [phone] See order comments or contact performing lab Unknown, [place] * SPECIAL CHEMISTRY (11/15/2024) Only the most recent of2 resultswithin the time period is included. Creatine Kinase (CK/CPK) 44 30 - 223 U/L [facility] 11/15/2024 11/16/2024 10: 45 AM EDT Narrative Resulting Agency Comment Specimen source: Serum Perry Smith MD LAB BLOOD BANK TEST ORDERABLE S Final Result Performing Organization Address [facility] de Phone Number [phone] See order comments or contact performing lab Unknown, [place] * POST CHEMISTRY (11/15/2024) Only the most recent of3 resultswithin the time period is included. BUN Post Dialysis 12 6 - 19 mg/dL [facility] 11/15/2024 11/16/2024 12: 58 PM EDT Narrative [facility] - 11/16/2024 Unless otherwise specified, test(s) performed at: [facility], [address] [place] [address] CAFE SERVER: Praveen Ryan M.D. For any questions, please call customer service at FREQUENCY:MONTHLY Resulting Agency Comment Specimen source: Plasma us Perry Smith MD LAB BLOOD ORDERABLES Final Re sult [facility] See order comments or contact performing lab [facility], [place] * IMMUNO CHEMISTRY (11/15/2024) Only the most recent of3 resultswithin the time period is included. Hep B Surface Ag Negative Negative [facility] Hepatitis B Surface Ab >1,000 mIU/mL [facility] Comment: The anti-HBs (Hepatitis B surface antibody) is greater than or equal to 10 mIU/mL and implies immunity. The patient has either had an antibody response to HBV vaccination, received a transfusion, or has recovered from HBV infection. For post-vaccination antibody testing guidelines for the general public, refer to MMWR August 07, 2005/Vol.54 (No. 16); -23, and for healthcare workers, refer to MMWR August 04, 2013/Vol.62 (No. 10); 1-18. Reference Range: <10 mIU/mL ? Non-Immune >=10 mIU/mL ?Immune The magnitude of the measured result above 10 mIU/mL is not indicative of the total amount of antibody present. Hepatitis C Antibody Nonreactive Nonreactive [facility] Comment: No HCV antibody detected. The above test result was obtained using Siemens Pijonaur XP chemiluminescent method. Results obtained with different assay methods or kits cannot be used interchangeably. S/CO Ratio 0.19 0.00 - 0.79 [facility] Comment: s/co ratio ?Interpretation ?Supplemental testing <0.80 ? Nonreactive ? No further testing required. 0.80-0.99 ? Equivocal ? HCV RNA Quantitative Real-Time PCR is recommended. 1.00->11.00 ?? Reactive ?HCV RNA Quantitative Real-Time PCR is recommended to distinguish active from resolved cases. 11/15/2024 11/16/2024 10: 45 AM EDT Narrative [facility] - 11/16/2024 Unless otherwise specified, test(s) performed at: [facility], [address] [place], [place] [id number] CAFE SERVER: Praveen Ryan M.D. For any questions, please call customer service at FREQUENCY:MONTHLY Resulting Agency Comment Specimen source: Serum Perry Smith MD LAB BLOOD ORDERABLES Edited R esult - Final [phone] See order comments or contact performing lab Unknown, [place] * (ABNORMAL) HEMATOLOGY (11/15/2024) Only the most recent of13 resultswithin the time period is included. WBC 7.96 4.80 - 10.80 1000/mcL [facility] RBC 3.36(L) 4.20 - 5.40 mill/mcL [facility] Hematocrit 33.5(L) 37.0 - 47.0 % [facility] MCV 100 80 - 100 fl [facility] MCH 32.9(H) 27.0 - 31.0 pg [facility] MCHC 33.0 30.0 - 36.0 g/dL [facility] RDW 13.7 11.5 - 14.5 % [facility] Hemoglobin 11.1(L) 12.0 - 16.0 g/dL [facility] Hemoglobin x 3 33.3(L) 36.0 - 48.0 % [facility] Reticulocyte Hemoglobin 35.5(H) 25.4 - 31.8 pg [facility] 11/15/2024 11/16/2024 11: 00 AM EDT Narrative [facility] - 11/16/2024 Unless otherwise specified, test(s) performed at: [facility], [address] [place] [id number] CAFE SERVER: Praveen Ryan M.D. For any questions, please call customer service at FREQUENCY:MONTHLY Resulting Agency Comment Specimen source: Blood Perry Smith MD LAB BLOOD ORDERABLES Final Re sult [facility] See order comments or contact performing lab Unknown, [place] * (ABNORMAL) [facility] (11/15/2024) Only the most recent of6 resultswithin the time period is included. PTH 336(H) 16 - 80 pg/mL [facility] 11/15/2024 11/16/2024 11: 29 AM EDT Narrative [facility] - 11/16/2024 Unless otherwise specified, test(s) performed at: [facility], [address] [place], [place] [id number] CAFE SERVER: Praveen Ryan M.D. For any questions, please call customer service at FREQUENCY:MONTHLY Resulting Agency Comment Specimen source: Plasma Perry Smith MD LAB BLOOD ORDERABLES Final Re sult Performing Organization Address [facility] Co de Phone Number [facility] See order comments or contact performing lab Unknown, [place] * [facility] Results (11/15/2024) Only the most recent of3 resultswithin the time period is included. nPCR_HD 0.90 [facility] eKt/V ([place]) 1.35 [facility] eNPCR 0.81 [facility] spKt/V Gotch 1.58 [facility] spKt/V ([place] II) 1.55 [facility] eKt/V Gotch 1.36 [facility] WSTDKT/V 2.4 [facility] eKdrt/V 1.36 [facility] PCR 53.12 [facility] 11/15/2024 11/15/2024 [facility] LAB BLOOD ORDERABLES Final Result [facility] Contact Performing lab Unknown, [place] from Last 3 Months Insurance [place] Care Teams Conference Service Coordinator Relationship Specialty Start Date End Date Heather Longo PA-C [address] [place] [address] PCP - General 06/20/19
--- OUTSIDE RECORDS SUMMARY | 2024-11-21 16:30 | XMS_ITS | Encounter Summary ---
Author Organization [facility], Address [address] [place] [address] Phone Care Team Providers Care Nurses Medical Assistants Phlebotomists Name Role Phone Heather Longo PA-C Primary Care Provider Encounter Details Date Type Department Care Team (Late st Contact Info) Description 11/15/2024 Orders Only [facility] [address] [place] [address] Perry Smith MD [address] [place] [address] [place] [phone] Social History Tobacco Use Types Packs/Day Years [...] visit [facility] [address] [place] [address] [place] [phone] documented as of this encounter Procedures Procedure Name Priority Date/Time Associated Diagnosis Comments THYROIDS Routine 11/15/2024 HD KINETICS Routine 11/15/2024 SPECIAL CHEMISTRY Routine 11/15/2024 SPECIAL CHEMISTRY Routine 11/15/2024 POST CHEMISTRY Routine 11/15/2024 IMMUNO CHEMISTRY Routine 11/15/2024 HEMATOLOGY Routine 11/15/2024 CHEMISTRY Routine 11/15/2024 CHEMISTRY Routine 11/15/2024 [facility] LAB RESULTS Routine 11/15/2024 documented in this encounter Results * [facility] Lab Results (11/15/2024) Pathologist [facility] nPCR_HD 0.90 [facility] eKt/V ([place]) 1.35 [facility] eNPCR 0.81 [facility] spKt/V Gotch 1.58 [facility] spKt/V (Daugirdas II) 1.55 [facility] eKt/V [facility] 1.36 [facility] WSTDKT/V 2.4 [facility] eKdrt/V 1.36 [facility] Center PCR 53.12 [facility] 11/15/2024 11/15/2024 [facility] [place] BLOOD ORDERABLES Final Result [facility] Contact Performing lab Unknown, [place] * THYROIDS (11/15/2024) Pathologist [facility] TSH 2.164 0.300 - 3.000 mIU/L [facility] Comment: The reference range of 0.300-3.000 mIU/L is recommended by the [place] [employer]ocrinologists (AACE). An ESRD population contains about 20% of individuals with TSH of up to 20 mIU/L and normal free T4 consistent with non-thyroidal illness. ESRD patients with true hypothyroidism develop persistent values above 20 mIU/L. 11/15/2024 11/16/2024 10: 45 AM EDT Narrative [facility] - 11/17/2024 Unless otherwise specified, test(s) performed at: [facility], [address] [place] [id number] DROP FORGE HAND: Praveen Ryan M.D. For any questions, please call customer service at FREQUENCY:MONTHLY Resulting Agency Comment Specimen source: Serum Perry Smith MD LAB BLOOD ORDERABLES Final Re sult Performing Organization Address [facility] Co de Phone Number [email or web address] See order comments or contact performing lab Unknown, [place] * HD KINETICS (11/15/2024) Pathologist [facility] % Urea Reduction 75 65 - 80 % [facility] 11/15/2024 11/16/2024 12: 58 PM EDT Narrative Resulting Agency Comment Specimen source: Plasma Perry Smith MD LAB BLOOD ORDERABLES Final Re sult Performing Organization Address [facility] de Phone Number [email or web address] See order comments or contact performing lab Unknown, [place] * POST CHEMISTRY (11/15/2024) BUN Post Dialysis 12 6 - 19 mg/dL [facility] 11/15/2024 11/16/2024 12: 58 PM EDT Narrative [facility] - 11/16/2024 Unless otherwise specified, test(s) performed at: [facility], [address] [place] [address] DROP FORGE HAND: Praveen Ryan M.D. For any questions, please call customer service at FREQUENCY:MONTHLY Resulting Agency Comment Specimen source: Plasma us ePrry Smith MD LAB BLOOD ORDERABLES Final Re sult Performing Organization Address [facility] de Phone Number [email or web address] See order comments or contact performing lab [facility], [place] * IMMUNO CHEMISTRY (11/15/2024) Hep B Surface Ag Negative Negative [facility] Hepatitis B Surface Ab >1,000 mIU/mL [facility] Comment: The anti-HBs (Hepatitis B surface antibody) is greater than or equal to 10 mIU/mL and implies immunity. The patient has either had an antibody response to HBV vaccination, received a transfusion, or has recovered from HBV infection. For post-vaccination antibody testing guidelines for the general public, refer to MMWR August 07, 2005/Vol.54 (No. 16); 09-07, and for healthcare workers, refer to MMWR August 04, 2013/Vol.62 (No. 10); 09-02. Reference Range: <10 mIU/mL ? Non-Immune >=10 mIU/mL ?Immune The magnitude of the measured result above 10 mIU/mL is not indicative of the total amount of antibody present. Hepatitis C Antibody Nonreactive Nonreactive [facility] Comment: No HCV antibody detected. The above test result was obtained using Siemens [employer] Farmsaur XP chemiluminescent method. Results obtained with different assay methods or kits cannot be used interchangeably. S/CO Ratio 0.19 0.00 - 0.79 [facility] Comment: s/co ratio ?Interpretation ?Supplemental testing <0.80 ? Nonreactive ? No further testing required. 0.80-0.99 ? Equivocal ? HCV RNA Quantitative Real-Time PCR is recommended. 1.00->11.00 ?? Reactive ?HCV RNA Quantitative Real-Time PCR is recommended to distinguish active from resolved cases. 11/15/2024 11/16/2024 10: 45 AM EDT Narrative [facility] - 11/16/2024 Unless otherwise specified, test(s) performed at: [facility], [address] [place] [id number] DROP FORGE HAND: Praveen Ryan M.D. For any questions, please call customer service at FREQUENCY:MONTHLY Resulting Agency Comment Specimen source: Serum Perry Smith MD LAB BLOOD ORDERABLES Edited R esult - Final Performing Organization Address [facility] de Phone Number [facility] See order comments or contact performing lab Unknown, [place] * (ABNORMAL) [facility] Chemistry (11/15/2024) PTH 336(H) 16 - 80 pg/mL [facility] 11/15/2024 11/16/2024 11: 29 AM EDT Narrative [facility] - 11/16/2024 Unless otherwise specified, test(s) performed at: [facility], [address] [place] [address] DROP FORGE HAND: Praveen Ryan M.D. For any questions, please call customer service at FREQUENCY:MONTHLY Resulting Agency Comment Specimen source: Plasma Perry Smith MD LAB BLOOD ORDERABLES Final Re sult Performing Organization Address [facility] de Phone Number [facility] See order comments or contact performing lab Unknown, [place] * SPECIAL CHEMISTRY (11/15/2024) Pathologist [facility] Creatine Kinase (CK/CPK) 44 30 - 223 U/L [facility] 11/15/2024 11/16/2024 10: 45 AM EDT Narrative Resulting Agency Comment Specimen source: Serum Perry Smith MD LAB BLOOD BANK TEST ORDERABLE S Final Result Performing Organization Address [facility] de Phone Number [facility] See order comments or contact performing lab Unknown, [place] * (ABNORMAL) [facility] (11/15/2024) BUN 48(H) 6 - 19 mg/dL [facility] Creatinine 7.28(H) 0.60 - 1.30 mg/dL [facility] BUN/Creatinine Ratio 6.6(L) 10.0 - 20.0 [facility] Sodium 137 136 - 145 mEq/L [facility] Potassium 5.0 3.5 - 5.1 mEq/L [facility] Chloride 101 96 - 108 mEq/L [facility] Bicarbonate (CO2) 22 22 - 29 mEq/L [facility] Calcium 8.4 8.4 - 10.2 mg/dL [facility] Corrected Calcium 8.6 8.4 - 10.2 mg/dL [facility] Comment: Corrected Calcium is not equivalent to measured Ionized Calcium. Phosphorus 6.1(H) 2.6 - 4.5 mg/dL [facility] Calcium Phosphorus Product 51 0 - 54 [facility] Calcium Phosporus Product, Cor 52 0 - 54 [facility] Alkaline Phosphatase 127(H) 35 - 104 U/L [facility] ALT (SGPT) 18 7 - 52 U/L [facility] LDH 137 118 - 273 U/L [facility] Albumin 3.8 3.5 - 5.2 g/dL [facility] Magnesium 2.2 1.6 - 2.6 mg/dL [facility] Iron 125 30 - 160 mcg/dL [facility] UIBC 85(L) 155 - 355 mcg/dL [facility] TIBC 210 185 - 515 mcg/dL [facility] Iron Saturation (TSat) 60(H) 20 - 55 % [facility] Cholesterol 197 0 - 199 mg/dL [facility] Comment: Reference Range: <200 mg/dL ? Desirable 200-239 mg/dL ?Borderline >=240 mg/dL ?High Risk Triglycerides 240(H) 0 - 149 mg/dL [facility] Comment: Reference Range: <150 mg/dL ? Normal 150-199 mg/dL ??Borderline High 200-499 mg/dL ??High >=500 mg/dL ?Very High Ferritin 1,306(H) 10 - 291 ng/mL [facility] 11/15/2024 11/16/2024 10: 45 AM EDT Narrative [facility] - 11/16/2024 Unless otherwise specified, test(s) performed at: [facility], [address] [place] [address] DROP FORGE HAND: Praveen Ryan M.D. For any questions, please call customer service at FREQUENCY:MONTHLY Resulting Agency Comment Specimen source: Serum us Perry Smith MD LAB BLOOD ORDERABLES Edited R esult - Final [email or web address] See order comments or contact performing lab Unknown, [place] * (ABNORMAL) SPECIAL CHEMISTRY (11/15/2024) Pathologist [facility] Hemoglobin A1C 6.9(H) 4.8 - 5.9 % [facility] 11/15/2024 11/16/2024 11: 00 AM EDT Narrative [facility] - 11/16/2024 Unless otherwise specified, test(s) performed at: [facility], [address] [place], [place] [id number] DROP FORGE HAND: Praveen Ryan M.D. For any questions, please call customer service at FREQUENCY:MONTHLY Resulting Agency Comment Specimen source: Blood Perry Smith MD LAB BLOOD BANK TEST ORDERABLE S Final Result [facility] See order comments or contact performing lab Unknown, [place] * (ABNORMAL) HEMATOLOGY (11/15/2024) Pathologist [facility] WBC 7.96 4.80 - 10.80 1000/mcL [facility] [...] 11/15/2024 11/16/2024 11: 00 AM EDT Narrative [facility] - 11/16/2024 Unless otherwise specified, test(s) performed at: [facility], [address] [place] [id number] DROP FORGE HAND: Praveen Ryan, M.D. For any questions, please call customer service at FREQUENCY:MONTHLY Resulting Agency Comment Specimen source: Blood us Perry Smith MD LAB BLOOD ORDERABLES Final Re sult [facility] See order comments or contact performing lab Unknown, [place] documented in this encounter Visit Diagnoses Not on filedocumented in this encounter Care Teams Nurses Medical Assistants Phlebotomists Relationship Specialty Start Date End Date Heather Longo PA-C [address] [place] [address] PCP - General 06/20/19 documented as of this encounter
--- OUTSIDE RECORDS SUMMARY | 2024-11-21 16:30 | XMS_ITS | Encounter Summary ---
Author Organization [facility], Address [address] [place] [address] Phone Care Team Providers Care Armature Winder Repair Helper Name Role Phone Heather Longo PA-C Primary Care Provider [phone] Encounter Details Date Type Department Care Team (Late st Contact Info) Description 10/24/2021 Documentation Only [facility] [address] [place] [phone] Sheyla Livingston [address] [place] [address] Social History Tobacco Use Types [...] visit [facility] - Vascular Access Center [address] [place] [phone] documented as of this encounter Visit Diagnoses Not on filedocumented in this encounter Care Teams Armature Winder Repair Helper Relationship Specialty Start Date End Date Heather Longo PA-C [address] [place] [phone] PCP - General 06/20/19 documented as of this encounter
== END 2024-11-21 14:15 | disposition home or self-care (01) ==
LOC: HO.ENCR 13:33
PROVIDERS: PCP Physician Assistant; Visit Provider Nurse Practitioner Adult Health
DX: E11.22 Type 2 diabetes mellitus with diabetic chronic kidney disease (principal)

== ENCOUNTER → 2024-11-21 13:32 | Outpatient (BNVA) | payer MEDICAID, SELFPAY | PROVIDERS: PCP Physician Assistant; Visit Provider Nurse Practitioner Adult Health | DX: E11.22 Type 2 diabetes mellitus with diabetic chronic kidney disease (principal); I12.0 Hypertensive chronic kidney disease with stage 5 chronic kidney disease or end stage renal disease; N18.6 End stage renal disease; Z79.4 Long term (current) use of insulin | CPT/HCPCS: 82947; 83036; 99212 ==

== ENCOUNTER 2025-01-23 09:53 | Outpatient (AMB) | payer MEDICAID, SELFPAY ==
--- NOTE | 2025-01-23 07:17 | A.OFFVIS_ITS ---
Vital Signs 01/23/25 10:00 Height 4 ft 10 in Weight 242 lb 8.136 oz BMI 50.7 BP 122/78 Blood Pressure Location Rt brachial Position Sitting Pulse 69 Pulse Source Pulse Oximeter Pulse Oximetry (%) 96 Oxygen Delivery Method Room Air Intake Visit Reasons: T2DM Intake Note: Patient presents today for a follow-up Type 2 Diabetes Mellitus: Last Diabetic Eye exam: 02/14/2024, No signs of Diabetic Retinopathy Last Podiatry Exam: Does not see a Rehabilitation Consultant Most recent HbA1c: 6.2%, 11/21/2024 Random Glucose- 104 mg/dL, Today Shop Director Required: Yes Shop Director Language: Computer Methods Analyst Services: Shop Director Offered & Declined Allergies cinacalcet [From SENSIPAR] Allergy (Unknown, Verified 11/21/24 14:17) UNKNOWN Sensipar Allergy (Unknown, Uncoded 11/21/24 14:17) Unknown Medication List - Last Reconciled 01/23/25 by Lisa Easton NP B complex with C 20-folic acid 1 mg (Vinod Caps) 1 cap PO DAILY blood sugar diagnostic (FreeStyle Lite Strips) 4 times a day blood-glucose sensor (Dexcom G7 Sensor device) As directed change every 10 days carvedilol 12.5 mg PO BID cholecalciferol (vitamin D3) 50 mcg PO DAILY insulin degludec (Tresiba FlexTouch U-200 insulin) 24 units (0.12 mL) subcut DAILY 30 days insulin lispro (Humalog KwikPen (U-100) Insulin) 10-18 units subcutaneously 3 times a day; 10 units breakfast and lunch, 14 units with dinner up to 20 units. 90 days MDD 40 units daily lancets (FreeStyle Lancets) 4 times a day losartan 100 mg PO DAILY losartan 25 mg PO DAILY pen needle, diabetic USE DIRECTED 5 TIMES A DAY HPI Comments Details: 64 year old female,her today for follow-up visit, for diabetes management in setting of ESRD. She is also being managed for micro papillary cancer by Dr. Burks and was last seen 06/27/24 with care to be transferred over to thyroid specialist Dr. Diaz with an upcoming appt 01/07. She was last seen by myself 05/16/24 for diabetes. Lantus has been changed to Tresiba. A1C 6.9% 08/22/24. She is feeling well, she has no complaints with the exception of her skin. She is followed by a materials assistant for hydro adenitis suppurativa. She is using an antibacterial soap and has been given antibiotics in the past. She is having a flare on the left excellent. She is allergic to an antibiotic but she is not sure which antibiotic she has been on in the past. It was given to her by her PCP. She is on dialysis Wednesday, Wednesday and Fridays. She has DM type 2 diagnosed on 1999. She has PMH of hypertension, hyperlipidemia, and stage renal disease on hemodialysis M/W/F, secondary hyperparathyroidism, status post parathyroidectomy with transplant into the right brachioradialis muscle. 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 Osteopenia. She has all microvascular complications neuropathy , nephropathy and retinopathy. Current medications Tresiba 22 units Humalog scale before meals (+2 to breakfast scale) 81-150 10 units 151-200 12 units 201-250 14 units >250 16units Freestyle leena sensor 3 average glucose: [ ] 14 day continuous glucose sensor report reviewed Glucose Management indicator [ ] % Time CGM active [ ] % TIme in ranges: [ ] % very high (above 250) [ ] % high (181-250) [ ] % in range (70-180] [ ] % low (69-55) [ ] % very low (below 54) [ ] Glucose variability [ ] (target <36%) Interpretation of CGMS [ ] Last ophthalmology evaluation uptodate , pt denies retinopathy She is on HD and is anuric, polydipsia +Neuropathy: she is followed by podiatry denies numbness, tingling appt is scheduled for podiatry was seen one month Retinopathy: last eye exam one month ago 11/2024, getting eye drops for past year ESRD on [facility] Medical History (Updated 01/23/25 @ 10:29 by Lisa J Rustam, DIRECTOR DIGITAL STRATEGY) Hidradenitis suppurativa History of papillary adenocarcinoma of thyroid FPC (current) use of insulin Diabetic nephropathy associated with type 2 diabetes mellitus ESRD (end stage renal disease) Type 2 diabetes mellitus with chronic kidney disease Diabetes type 2, uncontrolled Non-toxic multinodular goiter Surgical History Hx of partial thyroidectomy Hx of tubal ligation Hx of section History of surgery on lower extremity Hx of breast reduction, elective Hx of removal of cyst Family History Father No problems noted. Mother No problems noted. Other Diabetes Hypertension Social History Household Members: Family Household Members Other:: Sons Alcohol intake: never Patient Tobacco Use Status: Never used Tobacco Physical Exam Vital Signs: Last Vital Signs Pulse 69 01/23/25 10:00 BP 122/78 01/23/25 10:00 Pulse Ox 96 01/23/25 10:00 Oxygen Delivery Method Room Air 01/23/25 10:00 BMI result Body Mass Index 50.7 Const Other: Obese, alert and orientated Absence of acromegalic features. Neck exam reveals nl size thyroid about 15 gms. No thyroid nodules palpable. Heart S1 S2, Reg R/R. No M/R G. Skin exam reveals absence of vitiligo or acanthosis nigricans. No edema axilla: left active area of hydraadenitits .5 cm with fluctuance, yellow Office Procedures Glucose Monitoring Details Details: see [facility] [id number] - Glucose monitoring, continuous-physician I&R Procedure code (CPT) selection complete Results Reviewed Results Reviewed: Laboratory Last Values Glucose (Clinic) 104 mg/dL (60-115) 01/23/25 10:02 Assessment & Plan Assessment & Plan (1) Diabetes type 2, uncontrolled: Code(s): E11.65 - Type 2 diabetes mellitus with hyperglycemia Category: Medical Qualifiers: Glycemic state: with hyperglycemia Qualified Code(s): E11.65 - Type 2 diabetes mellitus with hyperglycemia Plan: 64-year-old type 2 diabetic with a end-stage renal disease on hemodialysis, neuropathy and retinopathy. She has been asked to go to the lab to have a fructosamine as her A1c is not an accurate indicator. She will also have fasting lipid profile. Current sensor average is 195. Increase Tresiba to 24 units. Humalog Humalog scale before breakfast and lunch 80-150 10 units 151-200 12 units 201-250 14 units greater than 250 16units Supper scale 80-150 10 units 151 -200 14 units 201-250 16 units Greater than [address] units Follow up with provider 3 months The patient had an opportunity to ask questions regarding treatment plan. The patient expressed understanding and agreement with the above treatment plan. The patient is aware they should contact our office by phone for worsening glucose readings or for any low blood sugars which may warrant a change in diabetes medication. Compliance is encouraged with medications and any followup testing/consults which may have been ordered. (2) Hidradenitis suppurativa: Code(s): L73.2 - Hidradenitis suppurativa Category: Medical Plan: She is having an active flare on her left axilla. There is a small area with fluctuance 0.5 cm. She was asked to contact either her PCP or her materials assistant as I believe she needs a systemic antibiotics. She does have an allergy for an antibiotic which is not documented on our record. She will contact her PCP today. Orders: Orders Fructosamine Today E11.22 - Type 2 diabetes mellitus with diabetic chronic kidney disease AMB Glucose Monitoring Today E11.65 - Type 2 diabetes mellitus with hyperglycemia Medications: Changed From insulin degludec (Tresiba FlexTouch U-200 insulin) 20 units (0.1 mL) subcut DAILY 30 days 3 mL 6RF E11.22 - Type 2 diabetes mellitus with diabetic chronic kidney disease To insulin degludec (Tresiba FlexTouch U-200 insulin) 24 units (0.12 mL) subcut DAILY 30 days 6 mL 6RF E11.22 - Type 2 diabetes mellitus with diabetic chronic kidney disease Coding Level of Care Code Est Pt Level 4 (23409) Complex EM visit Add On G2211 Diagnoses Uncontrolled type 2 diabetes mellitus with hyperglycemia E11.65 Glycemic state: with hyperglycemia Hidradenitis suppurativa L73.2 CPT Codes Details - CPT: 91468 - Glucose monitoring, continuous-physician I&R ([id number])
[2025-01-23 10:00] VITALS: BP 122/78; PULSE 69; O2SAT 96; BMI 50.7
[2025-01-23 10:05] LABS: Glucose, Whole Blood 104 mg/dL (60-115)
--- OUTSIDE RECORDS SUMMARY | 2025-01-23 11:10 | XMS_ITS | Encounter Summary ---
Author Organization [facility], Address [address] [place] [address] Phone Care Team Providers Care Silver Brazer Name Role Phone Heather Longo PA-C Primary Care Provider [phone] Reason for Visit * Reason Comments Med Refill Encounter Details Date Type Department Care Team (Late Contact Info) Description 09/18/2023 Refill [facility] [address] [place] [phone] Lupillo Tang MD [address] [place] [address] Social History Tobacco Use Types [...] visit [facility] [address] [place] [phone] documented as of this encounter Visit Diagnoses Not on filedocumented in this encounter Care Teams Silver Brazer Relationship Specialty Start Date End Date Heather Longo PA-C [facility] [place] [phone] PCP - General 06/20/19 documented as of this encounter
== END 2025-01-23 10:29 | disposition home or self-care (01) ==
LOC: HO.ENCR 09:54
PROVIDERS: PCP Physician Assistant; Visit Provider Nurse Practitioner Adult Health
DX: E11.65 Type 2 diabetes mellitus with hyperglycemia (principal); L73.2 Hidradenitis suppurativa
CPT/HCPCS: 95251; 99214

== ENCOUNTER → 2025-01-23 09:53 | Outpatient (BNVA) | payer MEDICAID, SELFPAY | PROVIDERS: PCP Physician Assistant; Visit Provider Nurse Practitioner Adult Health | DX: E11.65 Type 2 diabetes mellitus with hyperglycemia (principal); L73.2 Hidradenitis suppurativa | CPT/HCPCS: 82947; 99212 ==

== ENCOUNTER 2025-02-01 10:07 | Outpatient (AMB) | payer MEDICAID, SELFPAY ==
[2025-02-01 10:09] VITALS: BP 136/88; PULSE 66; O2SAT 96; BMI 51.3
--- NOTE | 2025-02-01 10:09 | A.OFFVIS_ITS ---
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 Boat Outboard Engine Mechanic Required: Yes Boat Outboard Engine Mechanic Language: Clinical Social Work Aide Services: Boat Outboard Engine Mechanic Present Boat Outboard Engine Mechanic Name: [id number] Information Interpreted: non-clinical & clinical Accompanied by: Self / Same As Patient Allergies cinacalcet (From SENSIPAR) Allergy (Unknown, Verified 02/01/25 10:16) UNKNOWN Sensipar Allergy (Unknown, Uncoded 02/01/25 10:16) Unknown Medication List - Last Reconciled 02/01/25 by Cara Mittal MD B complex with C 20-folic acid 1 mg (Vinod Caps) 1 cap PO DAILY blood sugar diagnostic (FreeStyle Lite Strips) 4 times a day blood-glucose sensor ([employer] G7 Sensor device) As directed change every 10 days carvedilol 12.5 mg PO BID cholecalciferol (vitamin D3) 50 mcg PO DAILY insulin degludec (Tresiba FlexTouch U-200 insulin) 24 units (0.12 mL) subcut DAILY 30 days insulin lispro (Humalog KwikPen (U-100) Insulin) 10-18 units subcutaneously 3 times a day; 10 units breakfast and lunch, 14 units with dinner up to 20 units. 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 She follows with Lisa Ardon APRN for type 2 diabetes mellitus in her office. This was not addressed today. History of PTC in detail 2017: right lobectomy at [facility] in [place],thinks it might have been Dr. Zuleika Galvin , she thinks [facility] the [facility] we do not have these records s/p right lobectomy pathology showed micro PTC, 0.7 X 0.6 X 0.6 cm, no extrathyroidal extension, no lymphovascular invasion, margins free of tumor, AJCC stage I (pT1a N0 MX), EMERITA low risk of recurrence. This per chart review of other notes, no pathology report available in the system. 07/21/2018: FNA of the left nodule consistent with benign follicular nodule with cystic degeneration. 05/11/2018: TSH 2.48, free T4 1.17, TG 7 ng/mL, TG antibody negative 05/09/2020: Ultrasound of the thyroid showed right lobe to be surgically absent, left thyroid lobe inferior nodule 1.4 X1.1 next 1.4 cm, solid hypoechoic, TR 4 category. 07/18/2020: FNA of the left midpole nodule was benign, [place] category 2, FNA was done due to increase in the size of the nodule 07/21/2022: Ultrasound of the thyroid, right lobe surgically absent, left mid pole nodule stable in size, mixed cystic solid, mainly cystic with thin septations, hypoechoic, measuring 1.4 X 1 point 0 X1.3 cm, stable in size. No lymphadenopathy. 06/15/2024: Ultrasound of the thyroid, right lobe surgically absent, left midpole nodule measuring 1.5 X1.1 X1.2 cm, mixed cystic solid, hypoechoic, TR 3, no significant change in size. Interval history Denies any compressive symptoms. No symptoms of hypo or hyperthyroidism. No family history of thyroid cancer. No personal history of head or neck radiation. Physical exam General: sitting comfortably in no acute distress HEENT: normocephalic/atraumatic, Neck: supple, symmetrical, surgical scar noted, no lymphadenopathy or palpable masses Cardiac: normal heart sounds Pulm: normal breath sounds B/L, no added breath sounds Abd: not distended, no tenderness Extremities: no edema, no signs of myxedema US THYROID 06/15/24 CLINICAL INFORMATION: Personal history of malignant neoplasm of thyroid. COMPARISON: Thyroid ultrasound 07/21/2022. Ultrasound-guided fine-needle aspiration 07/18/2020. Thyroid ultrasound 05/09/2020. TECHNIQUE: Linear transducer grayscale and color Doppler examination with attention to the region of the thyroid. FINDINGS: SIZE: Measurements of the solitary left thyroid lobe and nodules are given in sagittal, anteroposterior and transverse dimensions respectively. Right Thyroid Lobe: Surgically absent. Left Thyroid Lobe: 5.4 x 2.4 x 1.6 cm, volume 10.8 mL. Previously 5.8 x 2.3 x 2.2 cm, volume 15.4 mL. Parenchyma: The gland echotexture is homogeneous. Thyroid vascularity is normal. Isthmus: 0.7 cm in maximum AP dimension. Previously 0.6 cm. Estimated total number of nodules greater than or equal to 1 cm: 1. Scrap Sorter nodules are described as follows: 1. Location: Left mid. Size: 1.5 x 1.1 x 1.2 cm, volume 1.0 mL. Previously: 1.4 x 1.0 x 1.3 cm, volume 0.98 mL. Nodule characteristics: Composition: Mixed cystic and solid (1). Echogenicity: Hypoechoic (2). Shape: Not taller than wide (0). Margins: Ill-defined (0). Echogenic Foci: None (0). ACR TI-RADS total points: 3 Previous: 3 ACR TI-RADS category: 3 Previous: 3 Significant change in size (>/= 20% in 2 dimensions and minimal increase of 2 mm or 50% or greater increase in volume): No Change in features: No Change in ACR TI-RADS risk category: No NODES: No lymphadenopathy is seen in the tissue surrounding the thyroid gland. US/US thyroid IMPRESSION: 1. Right thyroid lobe surgically absent. 2. A 1.5 cm left mid TR3 thyroid nodule. EXAMINATION: US THYROID 07/21/22 CLINICAL INFORMATION: Nontoxic multinodular goiter. COMPARISON: Ultrasound soft tissue head/neck thyroid dated 05/09/2020 and 09/16/2017. TECHNIQUE: Linear transducer grayscale and color Doppler examination with attention to the region of the thyroid. FINDINGS: SIZE: Measurements of the solitary left thyroid lobe and nodules are given in sagittal, anteroposterior and transverse dimensions respectively. Right Thyroid Lobe: Surgically absent. Left Thyroid Lobe: 5.8 x 2.33 x 2.18 cm, volume 15.41 mL. Previously 5.76 x 2.24 x 2.47 cm, volume 16.7 mL. Parenchyma: The gland echotexture is homogeneous. Thyroid vascularity is normal. Isthmus: 0.62 cm in maximum AP dimension. Previously 0.46 cm. Estimated total number of nodules greater than or equal to 1 cm: 1. Scrap Sorter nodules are described as follows: 1. Location: Left mid. Size: 1.39 x 1.01 x 1.33 cm, volume 0.98 mL. Previously: 1.4 x 1.1 x 1.4 cm, volume 1.2 mL. Nodule characteristics: Composition: Mixed cystic and solid (1). Mainly cystic with thin septation. Echogenicity: Hypoechoic (2). Shape: Not taller than wide (0). Margins: Smooth (0). Echogenic Foci: None (0). ACR TI-RADS total points: 3 ACR TI-RADS category: 3 Significant change in size (>/= 20% in 2 dimensions and minimal increase of 2 mm or 50% or greater increase in volume): No Change in features: No Change in ACR TI-RADS risk category: N/A NODES: No lymphadenopathy is seen in the tissue surrounding the thyroid gland. US/US thyroid IMPRESSION: Status post right thyroidectomy. Stable left thyroid nodule with no continued follow-up of this nodule is recommended by ACR TI-RADS criteria. 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 Mother No problems noted. Other Diabetes Hypertension Social History Household Members: Family Household Members Other:: Sons Alcohol intake: never Patient Tobacco Use Status: Never used Tobacco Assessment & Plan Assessment & Plan (1) Non-toxic multinodular goiter: Code(s): E04.2 - Nontoxic multinodular goiter Category: Medical Plan: See below (2) History of thyroid cancer: Code(s): Z85.850 - Personal history of malignant neoplasm of thyroid Category: Medical Plan: 64-year-old female coming in today with a history of PTC status post right lobectomy for what patient describes to be suspicious biopsy results and pathology showed micro PTC, 0.7 X 0.6 X 0.6 cm, no extrathyroidal extension, no lymphovascular invasion, margins free of tumor, AJCC stage I (pT1a N0 MX), EMERITA low risk of recurrence, and has been followed here now for left-sided thyroid nodule. She did not require levothyroxine postoperatively. She has a stable left midpole 1.5 cm nodule which when I reviewed the images myself of the ultrasounds appears more of a cyst with a very small solid component/septations somewhere between a cyst or a spongiform nodule. Either way this is very low risk appearing. Last ultrasound done 06/15/2024: Ultrasound of the thyroid, right lobe surgically absent, left midpole nodule measuring 1.5 X1.1 X1.2 cm, mixed cystic solid, hypoechoic, TR 3, no significant change in size. She has not had any recent TSH, TG levels done. I will have her repeat levels today. Ideally in patients who had lobectomy you would like to see TG levels less than 30 which are usually reassuring. We will have her repeat an ultrasound of the neck and thyroid in December 2025 with follow up in January 2026. Plan: -ordered TSH, free T4, TG and TG antibodies to be done now, we will reach out with the results -ordered ultrasound of the neck/thyroid to be done in December 2025 with follow up in January 2026 -once her labs are resulted from today we will also order labs to be done prior to 1 year follow up Plan I spent 30 minutes in reviewing the record, seeing the patient and documenting in the medical record. Orders: Orders 2 Thyroid Stimulating Hormone Today E04.2 - Nontoxic multinodular goiter, Z85.850 - Personal history of malignant neoplasm of thyroid Thyroglobulin Today E04.2 - Nontoxic multinodular goiter, Z85.850 - Personal history of malignant neoplasm of thyroid Thyroglobulin Tumor Marker Today E04.2 - Nontoxic multinodular goiter, Z85.850 - Personal history of malignant neoplasm of thyroid US thyroid 12/24/25 E04.2 - Nontoxic multinodular goiter, Z85.850 - Personal history of malignant neoplasm of thyroid Free T4 (Free Thyroxine) Today E04.2 - Nontoxic multinodular goiter, Z85.850 - Personal history of malignant neoplasm of thyroid Thyroglobulin Antibodies Today E04.2 - Nontoxic multinodular goiter, Z85.850 - Personal history of malignant neoplasm of thyroid US soft tiss head and/or neck 12/24/25 E04.2 - Nontoxic multinodular goiter, Z85.850 - Personal history of malignant neoplasm of thyroid Patient Instructions: Do blood work today Do ultrasound of the thyroid and neck in December 2025 and follow up to discuss results in January 2026 with me, someone will call you to schedule these Hazte un an?lisalisson de kelli bentley. Hazte goldy ecograf?a de tiroides y charu en 2025 y haz un seguimiento para hablar de los resultados conmigo en 2025. Alguien te llamar? para programarlos. Coding Level of Care Code Est Pt Level 4 (14425) Diagnoses Non-toxic multinodular goiter E04.2 History of thyroid cancer Z85.850 Time Spent (min) 30
--- OUTSIDE RECORDS SUMMARY | 2025-02-01 11:27 | XMS_ITS | Encounter Summary ---
Author Organization [facility], Address [address] [place] [address] Phone Care Team Providers Care Lumber Tying Machine Operator Name Role Phone Heather Longo PA-C Primary Care Provider + [phone] Reason for Visit * Reason Comments Med Refill Encounter Details Date Type Department Care Team (Late st Contact Info) Description 09/18/2023 Refill [facility] [address] [place] [phone] Lupillo Tang MD [address] [place] [phone] Social History Tobacco Use Types Packs/Day Years [...] as of this encounter Plan of Treatment Not on file documented as of this encounter Visit Diagnoses Not on filedocumented in this encounter Care Teams Lumber Tying Machine Operator Relationship Specialty Start Date End Date Heather Longo PA-C [address] [place] [address] PCP - General 06/20/19 documented as of this encounter
== END 2025-02-01 10:35 | disposition home or self-care (01) ==
LOC: HO.ENCR 10:08
PROVIDERS: PCP Physician Assistant; Visit Provider Student in an Organized Health Care Education/Training Program
DX: E04.2 Nontoxic multinodular goiter (principal); Z85.850 Personal history of malignant neoplasm of thyroid
CPT/HCPCS: 99214

== ENCOUNTER → 2025-02-01 10:07 | Outpatient (BNVA) | payer MEDICAID, SELFPAY | PROVIDERS: PCP Physician Assistant; Visit Provider Student in an Organized Health Care Education/Training Program | DX: E04.2 Nontoxic multinodular goiter (principal); Z85.850 Personal history of malignant neoplasm of thyroid | CPT/HCPCS: 99212 ==

== ENCOUNTER 2025-02-01 10:39 | Outpatient (REF) | payer MEDICAID, SELFPAY ==
[2025-02-01 13:44] LABS: Free T4 (Free Thyroxine) 1.17 ng/dL (0.71-1.85); Thyroid Stimulating Hormone 1.37 uIU/mL (0.32-4.0)
[2025-02-02 19:44] LABS: Thyroglobulin Antibodies <1 IU/mL (< or = 1)
[2025-02-05 05:28] LABS: Thyroglobulin Antibody <1 IU/mL (<=1); Thyroglobulin Level 6.6 ng/mL
== END 2025-02-01 10:40 | disposition home or self-care (01) ==
LOC: HO.10HDL 10:39
PROVIDERS: Visit Provider Student in an Organized Health Care Education/Training Program
DX: E04.2 Nontoxic multinodular goiter (principal); Z85.850 Personal history of malignant neoplasm of thyroid
CPT/HCPCS: 36415; 84432; 84439; 84443; 86800

== ENCOUNTER 2025-04-24 10:17 | Outpatient (AMB) | payer MEDICAID, SELFPAY ==
[2025-04-24 10:21] VITALS: BP 120/80; PULSE 63; O2SAT 98; BMI 51.6
--- NOTE | 2025-04-24 10:21 | A.OFFVIS_ITS ---
Vital Signs 04/24/25 10:21 Height 4 ft 10 in Weight 246 lb 14.684 oz BMI 51.6 BP 120/80 Blood Pressure Location Lt brachial Position Sitting Pulse 63 Pulse Source Pulse Oximeter Pulse Oximetry (%) 98 Oxygen Delivery Method Room Air Intake Visit Reasons: T2DM Intake Note: Patient presents today for a follow-up Type 2 Diabetes Mellitus: Last Diabetic Eye exam: 03/16/2025, [facility] Last Podiatry Exam: Does not see a Lead Advisor Most recent HbA1c: 6.6%, 04/24/2025 Random Glucose- 130 mg/dL, Today Pediatric Geneticist Required: Yes Pediatric Geneticist Language: Vacuum Conditioner Operator Services: Pediatric Geneticist Present Pediatric Geneticist Name: Aleksandra #[id number] Accompanied by: Self / Same As Patient Allergies cinacalcet (From SENSIPAR) Allergy (Unknown, Verified 04/24/25 10:23) UNKNOWN Sensipar Allergy (Unknown, Uncoded 04/24/25 10:23) Unknown Medication List - Last Reconciled 04/24/25 by VIBHA Toussaint B complex and C 20-folic acid 1 mg (Vinod Caps) 1 cap PO DAILY blood sugar diagnostic (FreeStyle Lite Strips) 4 times a day blood-glucose meter (FreeStyle Lite Meter kit) to check blood sugar 4 times per day blood-glucose sensor ([employer] G7 Sensor device) As directed change every 10 days carvedilol 12.5 mg PO BID cholecalciferol (vitamin D3) 50 mcg PO DAILY insulin degludec (Tresiba FlexTouch U-200 insulin) 24 units (0.12 mL) subcut DAILY 30 days insulin lispro (Humalog KwikPen (U-100) Insulin) 81-150 10 units 151-200 12 units 201-250 14 units > 250 16 units lancets (FreeStyle Lancets) 4 times a day losartan 100 mg PO DAILY losartan 25 mg PO DAILY pen needle, diabetic USE DIRECTED 5 TIMES A DAY HPI Comments Details: This is a 64-year-old female with a past medical history of thyroid cancer, hypertension and hyperlipidemia type 2 diabetes and end-stage renal disease presenting for diabetic management. She was last seen by my colleague for diabetes management on 01/23/2025. Hemoglobin A1c is 6.6% today 04/24/2025. Reviewed Dexcom data for the past 10 days 26% very high 46% high 28% in range 0% low G AL 8.5% She has hyperglycemia on her CGM in the afternoon, evening and overnight. She reports that she has not been exercising as much as she typically does within the past few weeks. She also had some dietary indiscretion. Type 2 diabetes was diagnosed in 1999. Thyroid cancer is being managed by Dr. Mittal. She has dialysis on Wednesday, Wednesday and Wednesday. Current medications: Tresiba 24 units Humalog scale before meals 81-150 10 units 151-200 12 units 201-250 14 units > 250 16 units She denies episodes of hypoglycemia. Complications: Nephropathy, neuropathy, followed by Podiatry, retinopathy ROS: Constitutional: No unexplained weight loss, fever or chills Respiratory: No shortness of breath Cardiovascular: No chest pain Neurologic: Denies dizziness, endorses mild neuropathy in the toes Endocrine: No cold or heat intolerance. No polyuria or polydipsia. Physical exam: Constitutional: Alert, in no distress. Neck: Supple, Full range of motion. No lymphadenopathy. No palpable thyroid masses. Respiratory: Clear to auscultation. Cardiovascular: S1 S2 regular. No murmurs. Neurologic: No focal neurological deficits Extremities: Warm and well perfused. No clubbing, cyanosis or edema. [facility] Medical History History of thyroid cancer Hidradenitis suppurativa History of papillary adenocarcinoma of thyroid terminal carman (current) use of insulin Diabetic nephropathy associated with type 2 diabetes mellitus ESRD (end stage renal disease) Type 2 diabetes mellitus with chronic kidney disease Diabetes type 2, uncontrolled Non-toxic multinodular goiter Surgical History Hx of partial thyroidectomy Hx of tubal ligation Hx of section History of surgery on lower extremity Hx of breast reduction, elective Hx of removal of cyst Family History Father No problems noted. Mother No problems noted. Other Diabetes Hypertension Social History Household Members: Family Household Members Other:: Sons Alcohol intake: never Patient Tobacco Use Status: Never used Tobacco Physical Exam Vital Signs: Last Vital Signs Pulse 63 04/24/25 10:21 BP 120/80 04/24/25 10:21 Pulse Ox 98 04/24/25 10:21 Oxygen Delivery Method Room Air 04/24/25 10:21 BMI result Body Mass Index 51.6 Office Procedures Glucose Monitoring Details Details: See HPI 53153 - Glucose monitoring, continuous-physician I&R Procedure code (CPT) selection complete Results AMB Hemoglobin A1c AMB Hemoglobin A1c 6.6 % Last Edit by VINICIUS Ortega on 04/24/25 10:41 Results Reviewed Results Reviewed: Laboratory Last Values Glucose (Clinic) 130 mg/dL (60-115) H 04/24/25 10:29 Hgb A1c (Clinic) 6.6 % (4.0-6.0) H 04/24/25 10:40 Assessment & Plan Assessment & Plan (1) Diabetic nephropathy associated with type 2 diabetes mellitus: Code(s): E11.21 - Type 2 diabetes mellitus with diabetic nephropathy Category: Medical (2) ESRD (end stage renal disease): Code(s): N18.6 - End stage renal disease Category: Medical Plan In summary this is a 64-year-old female with controlled type 2 diabetes in the setting of end-stage renal disease. Reviewed a diabetic diet. I encouraged regular exercise. She will work on lifestyle modifications to improve blood sugars. She was instructed to continue her current regimen: Current medications: Tresiba 24 units Humalog scale before meals 81-150 10 units 151-200 12 units 201-250 14 units > 250 16 units She will have lab work completed. Follow up in 3 months for diabetic management. Orders: Orders AMB Hemoglobin A1c Today VIBHA Toussaint E11.65 - Type 2 diabetes mellitus with hyperglycemia Aspartate Amino Transferase Today VIBHA Toussaint E11.21 - Type 2 diabetes mellitus with diabetic nephropathy Lipid Panel Today VIBHA Toussaint E11.21 - Type 2 diabetes mellitus with diabetic nephropathy, E78.5 - Hyperlipidemia, unspecified Alanine Aminotransferase Today VIBHA Toussaint E11.21 - Type 2 diabetes mellitus with diabetic nephropathy AMB Glucose Monitoring Today VIBHA Toussaint E11.9 - Type 2 diabetes mellitus without complications Medications: New blood-glucose meter (FreeStyle Lite Meter kit) to check blood sugar 4 times per day 1 ea 0RF VIBHA Toussaint Changed From insulin lispro (Humalog KwikPen (U-100) Insulin) 10-18 units subcutaneously 3 times a day; 10 units breakfast and lunch, 14 units with dinner up to 20 units. 90 days 12 mL 2RF MDD 40 units daily E11.22 - Type 2 diabetes mellitus with diabetic chronic kidney disease To insulin lispro (Humalog KwikPen (U-100) Insulin) 81-150 10 units 151-200 12 units 201-250 14 units > 250 16 units E11.22 - Type 2 diabetes mellitus with diabetic chronic kidney disease Austin Burks MD Refilled insulin degludec (Tresiba FlexTouch U-200 insulin) 24 units (0.12 mL) subcut DAILY 6 mL 6RF 30 days VIBHA Toussaint E11.22 - Type 2 diabetes mellitus with diabetic chronic kidney disease lancets (FreeStyle Lancets) 4 times a day 200 ea 6RF VIBHA Toussaint Coding Level of Care Code Est Pt Level 4 (48446) Diagnoses Diabetic nephropathy associated with type 2 diabetes mellitus E11.21 ESRD (end stage renal disease) N18.6 CPT Codes Details - CPT: 63170 - Glucose monitoring, continuous-physician I&R ([id number])
[2025-04-24 10:33] LABS: Glucose, Whole Blood 130 mg/dL (60-115)
--- OUTSIDE RECORDS SUMMARY | 2025-04-24 12:04 | XMS_ITS | Encounter Summary ---
Author Organization [facility], Address [address] [place] [address] Phone Care Team Providers Care Deburrer Strip Name Role Phone Heather Longo PA-C Primary Care Provider [phone] Reason for Visit * Reason Comments Med Refill Encounter Details Date Type Department Care Team (Late Contact Info) Description 08/15/2022 Refill [facility] [address] [place] [phone] Lupillo Tang MD [address] [facility] [place] [address] Social History Tobacco Use Types [...] Department Care Team (Late Contact Info) Description 08/30/2025 11:00 AM EST Procedure visit [facility] [address] [facility] [place] [phone] documented as of this encounter Visit Diagnoses Not on filedocumented in this encounter Care Teams Deburrer Strip Relationship Specialty Start Date End Date Heather Longo PA-C [address] [place] [phone] PCP - General 06/20/19 documented as of this encounter
--- OUTSIDE RECORDS SUMMARY | 2025-04-24 12:04 | XMS_ITS | Encounter Summary ---
Author Organization [facility], Address [address] [place] [address] Phone Care Team Providers Care Consultant In Ergonomics And Safety Name Role Phone Heather Longo PA-C Primary Care Provider [phone] Reason for Visit * Reason Comments Med Refill Encounter Details Date Type Department Care Team (Late Contact Info) Description 09/18/2023 Refill [facility] [address] [place] [phone] Lupillo Tang MD [address] [facility] [place] [address] Social History Tobacco Use Types [...] visit [facility] [place] [address] [facility] [place] [phone] documented as of this encounter Visit Diagnoses Not on filedocumented in this encounter Care Teams Consultant In Ergonomics And Safety Relationship Specialty Start Date End Date Heather Longo PA-C [address] [place] [phone] PCP - General 06/20/19 documented as of this encounter
--- OUTSIDE RECORDS SUMMARY | 2025-04-24 12:04 | XMS_ITS | Encounter Summary ---
Author Organization [facility], Address [address] [place] [address] Phone Care Team Providers Care Biomedical Specialist Name Role Phone Heather Longo PA-C Primary Care Provider [phone] Encounter Details Date Type Department Care Team (Late st Contact Info) Description 06/12/2022 Documentation Only [facility] [address] [place] [address] Mimi Jones Social History Tobacco Use Types Packs/Day Years [...] Care Team (Late st Contact Info) Description 08/30/2025 11:00 AM EST Procedure visit [facility] [place] - [facility] [address] [facility] [place] [address] documented as of this encounter Visit Diagnoses Not on filedocumented in this encounter Care Teams Biomedical Specialist Relationship Specialty Start Date End Date Heather Longo PA-C [address] [place] [phone] PCP - General 06/20/19 documented as of this encounter
--- OUTSIDE RECORDS SUMMARY | 2025-04-24 12:04 | XMS_ITS | Encounter Summary ---
Author Organization [facility], Address [address] [place] [address] Phone Care Team Providers Care Portal Developer Name Role Phone Heather Longo PA-C Primary Care Provider [phone] Encounter Details Date Type Department Care Team (Late st Contact Info) Description 01/04/2024 Documentation Only [facility] Center [address] [place] [address] [place] [address] Bonnie Cesar [address] [place] [phone] Social History Tobacco Use Types Packs/Day Years [...] visit [facility] [address] [facility] [place] [place] [address] documented as of this encounter Visit Diagnoses Not on filedocumented in this encounter Care Teams Portal Developer Relationship Specialty Start Date End Date Heather Longo PA-C [address] [place] [phone] PCP - General 06/20/19 documented as of this encounter
--- OUTSIDE RECORDS SUMMARY | 2025-04-24 12:04 | XMS_ITS | Encounter Summary ---
Author Organization [facility] Address [address] [place] [address] Care Team Providers Care Hazardous Substances Engineer Name Role Phone Heather Longo PA-C Primary Care Provider + [phone] Reason for Visit * Reason Comments Correspondence PT1 Encounter Details Date Type Department Care Team (Late st Contact Info) Description 09/11/2024 Interim Notes [address] [phone] [address] [address] Social History Tobacco Use Types Packs/Day Years [...] In the last 10 days, have tonya u been in contact with someone who was confirmed or suspected to have Coronavirus/COVID-19? No / Unsure 08/29/2024 10:05 AM EST documented as of this encounter Plan of Treatment Upcoming Encounters Date Type Department Care Team (Late st Contact Info) Description 05/01/2025 11:20 AM EDT Office Visit [address] [phone] Heather Longo PA-C [address] [place] [phone] 05/01/2025 3:40 PM EDT Office Visit [facility] [address] [place] [phone] Elvia Martinofer [address] [place], [place] [phone] documented as of this encounter Goals Goal Patient Goal Type Associated Problems Recent Progress Patient-Stated? Author Blood Pressure < 130/80 Blood Pressure Essential hypertension, benign 134/80(2024 3:11 PM EDT) No Jamison Thibodeaux, PharmD HEMOGLOBIN A1C < 7.0 Result Component DM (diabetes mellitus), type 2 with renal complications ([facility]-H[facility]) 6.7( 12:00 AM EDT) No Jamison Thibodeaux, PharmD documented as of this encounter Visit Diagnoses Not on filedocumented in this encounter Additional Health Concerns Assessment Noted Time PHQ-9 Depression Total Score: 0 03/06/20 24 8:24 AM PDT A Depression follow-up plan has been documented for the patient 07/20/2023 3:20 PM PST documented as of this encounter Care Teams Hazardous Substances Engineer Relationship Specialty Start Date End Date Heather Longo PA-C [address] [place] [phone] PCP - General 02/28/13 documented as of this encounter
--- OUTSIDE RECORDS SUMMARY | 2025-04-24 12:05 | XMS_ITS | Encounter Summary ---
Author Organization [facility], Address [address] [place] [address] Phone Care Team Providers Care Manager Loan Name Role Phone Heather Longo PA-C Primary Care Provider [phone] Reason for Visit * Reason Comments Med Refill Encounter Details Date Type Department Care Team (Late Contact Info) Description 06/15/2023 Refill [facility] [address] [place] [phone] Lupillo Tang MD [address] [facility] [place] [address] Social History Tobacco Use Types [...] visit [facility] [place] [address] [facility] [place] [phone] documented as of this encounter Visit Diagnoses Not on filedocumented in this encounter Care Teams Manager Loan Relationship Specialty Start Date End Date Heather Longo PA-C [address] [place] [phone] PCP - General 06/20/19 documented as of this encounter
--- OUTSIDE RECORDS SUMMARY | 2025-04-24 12:05 | XMS_ITS | Encounter Summary ---
Author Organization [facility] [place], Address [address] [place] [address] Phone Care Team Providers Care Contract Paralegal Name Role Phone Heather Longo PA-C Primary Care Provider [phone] Encounter Details Date Type Department Care Team (Late st Contact Info) Description 04/20/2025 Treatment [facility], [address] [place] [address] Ginger Dill FNP-C [address] [place] [address] [place] [address] End stage renal disease; Dependence on renal dialysis Social History Tobacco Use Types Packs/Day Years [...] encounter Miscellaneous Notes * Dialysis Note - Ginger Dill FNP-C - 04/20/2025 12:00 AM EDT Patient: MADELAINE EISENBERGN, 1960, 64y, F Dialysis Location: [facility] Attending Lobby Porter: Perry Smith Service Date: 04/20/2025 Service Provider: Ginger Dill NP I met face to face with the patient today. OVERVIEW The patient presented with ESRD on dialysis LAST HOSPITALIZATION Discharge Diagnosis: N61.1 Abscess of the breast and nipple Admission Date 04/18/24 Discharge Date 04/21/24 DIALYSIS PRESCRIPTION IHD 3x Week Start date: 04/06/25 Dialyzer: FX CorAL 60 BFR: 450 DFR: Manual 500 Potassium: 2.0 Sodium: 138 EDW: 111 Duration: 4:00 Calcium: 2.50 Bicarb: 36 Rx updated on: 04/05/2025 TREATMENT ASSESSMENT BP Stand Pre 04/18/2025: 161/91 04/16/2025: 156/89 04/13/2025: 135/85 BP Sit Pre 04/18/2025: 186/94 04/16/2025: 144/112 04/13/2025: 173/89 BP Stand Post 04/18/2025: 144/69 04/16/2025: 120/74 04/13/2025: 110/76 BP Sit Post 04/18/2025: 150/109 04/16/2025: 148/89 04/13/2025: 123/77 Tx Duration 04/18/2025: 4:05 04/16/2025: 3:57 04/13/2025: 3:44 Missed Treatments 0 - last 30 days 0 - last 60 days FLUID ASSESSMENT EDW (kg) 04/18/2025: 111.0 04/16/2025: 111.0 04/13/2025: 111.0 Weight Pre (kg) 04/18/2025: 113.4 04/16/2025: 114.7 04/13/2025: 113.2 Weight Post (kg) 04/18/2025: 110.9 04/16/2025: 110.7 04/13/2025: 111.0 PWV (kg) 04/18/2025: -0.1 04/16/2025: -0.3 04/13/2025: 0.0 UF Rate (mL/kg/hr) 04/18/2025: 5.5 04/16/2025: 9.1 04/13/2025: 5.3 ADEQUACY ASSESSMENT spKt/V, URR 04/18/2025: -, 76.0 03/21/2025: 1.63, 75.0 02/14/2025: 1.65, 76.0 ACCESS ASSESSMENT Access Type: AVGraft Access SubType: Synthetic - Standard (PTFE) Access Status: Active (In Use) - 01/30/2013 Access Location: Left Thigh Created: 12/27/2012 Flow 03/28/2025: 1124 02/21/2025: 1054 01/24/2025: 1098 ANEMIA ASSESSMENT HGB, TSAT 04/18/2025: 11.1, 68.0 04/11/2025: 10.4, - 04/04/2025: 11.1, - Ferritin 04/18/2025: 1543.0 03/21/2025: 1205.0 02/14/2025: 1519.0 Mircera, IVP (mcg) 04/18/2025: 30 02/21/2025: 30 01/24/2025: 30 BMM ASSESSMENT PTH, Intact 04/18/2025: 380.0 03/21/2025: 395.0 02/14/2025: 363.0 Calcium, Phosphorus 04/18/2025: 7.3, 5.9 03/21/2025: 7.6, 6.0 02/14/2025: 7.7, 6.3 Vitamin D (Calcitriol) Oral (mcg) 04/18/2025: 0.25 04/16/2025: 0.25 04/13/2025: 0.25 NUTRITION ASSESSMENT Potassium, Albumin 04/18/2025: 5.0, 3.9 03/21/2025: 5.2, 4.1 02/14/2025: 5.3, 4.1 eNPCR 03/21/2025: 0.94 02/14/2025: 1.2 01/17/2025: 1.11 DIAGNOSIS Chief Complaint: N18.6 End stage renal disease Comments: Patient seen and examined. VSS with no complaints to offer. S1, S2. RRR, LS CTA BL. Access patent. Patient is stable. Patient data updated 04/20/2025 at 2:46 PM Signed By: Ginger Dill NP on 04/20/2025 2:46:11 PM documented in this encounter Plan of Treatment Upcoming Encounters Date Type Department Care Team (Late st Contact Info) Description 08/30/2025 11:00 AM EST Procedure visit [facility] - Vascular Access Center [address] [facility] [place] [address] documented as of this encounter Visit Diagnoses Diagnosis End stage renal disease Dependence on renal dialysis documented in this encounter Care Teams Contract Paralegal Relationship Specialty Start Date End Date Heather Longo PA-C [address] [place] [phone] PCP - General 06/20/19 documented as of this encounter
--- OUTSIDE RECORDS SUMMARY | 2025-04-24 12:05 | XMS_ITS | Clinical Summary ---
Author Organization [facility] Address [address] [facility] 7[address] [place] [address] Care Team Providers Care Speech Language Therapist Name Role Phone Unavailable Primary Care Provider Unavailabl e Encounters Date Type Department Care Team Description 03/06/2025 Population Health Risk Score [facility] (C3) Department [address] [facility] [address] [place] [address] Provider, Population Health Generic from Last 3 Months Social History Tobacco Use Types Packs/Day Years Used Date Smoking Tobacco: Never Assessed Comments Unknown Sex and Gender Information Value Date Recorded Sex Assigned at Not on file Legal Sex Female 9:22 PM EDT Gender Identity Not on file Sexual Orientation Not on file Plan of Treatment Health Maintenance Due Date Last Done Comments CT Colonography 1961 Colonoscopy 1961 Colorectal Cancer Screening 1961 Depression Screening 1961 FIT DNA/Cologuard 1961 FIT 1961 FOBT 1961 HIV Screening 1961 Lipid Panel 1961 SDOH Screening 1961 Sigmoidoscopy 1961 Disability Screening 1961 Alcohol/Substance Use Screening 1973 Tobacco Screening 1973 Hepatitis C Screening 11/11/1979 DTaP/Tdap/Td Vaccines (1 - Tdap) 1980 Pap Smear 1982 Cervical Cancer Screening 11/11/1991 HPV/Cotest 11/11/1991 Mammogram 2001 Zoster Vaccines (1 of 2) 11/11/2011 COVID-19 Vaccine ( season) 2025 05/29/2022, 06/20/2021, 10/18/2020, Additional history exists Influenza Vaccine (#1) 2025 06/05/2022, 2020 RSV Patients and Patients Aged 60 years or older (1 - 1-dose 75+ series) 2036 Pneumococcal Vaccine: 50+ Years Completed 06/13/2021, 08/30/2017, 05/15/2016 HIB Vaccines Aged Out No longer eligi [...] patient's age to complete this topic Meningococcal Vaccine Aged Out No sharla tonie eligible based on patient's age to complete this topic RSV under 20 months Aged Out No longe r eligible based on patient's age to complete this topic Rotavirus Vaccines Aged Out No longer eligible based on patient's age to complete this topic
--- OUTSIDE RECORDS SUMMARY | 2025-04-24 12:05 | XMS_ITS | Encounter Summary ---
Author Organization [facility], Address [address] [place] [address] Phone Care Team Providers Care Engineer Booster And Exhauster Name Role Phone Heather Longo PA-C Primary Care Provider [phone] Encounter Details Date Type Department Care Team (Late st Contact Info) Description 04/18/2025 Orders Only [facility] [address] [place] [address] Perry Smith MD [address] [place] [address] [place] [address] Social History Tobacco Use Types [...] visit [facility] [place], - Vascular Access Center [address] [place] [address] [place] [phone] documented as of this encounter Procedures Procedure Name Priority Date/Time Associated Diagnosis Comments HD KINETICS Routine 04/18/2025 POST CHEMISTRY Routine 04/18/2025 IMMUNO CHEMISTRY Routine 04/18/2025 HEMATOLOGY Routine 04/18/2025 CHEMISTRY Routine 04/18/2025 CHEMISTRY Routine 04/18/2025 [facility] RESULTS Routine 04/18/2025 documented in this encounter Results * [facility] Results (04/18/2025) Pathologist [facility] spKt/V Gotch 1.76 [facility] nPCR_HD 1.05 [facility] WSTDKT/V 2.5 [facility] eNPCR 0.98 [facility] eKt/V Gotch 1.53 [facility] e Center eKt/V (Tat[place]all) 1.47 [facility] eKdrt/V 1.53 [facility] PCR 63.90 [facility] spKt/V (Daugirdas II) 1.68 [facility] 04/18/2025 04/18/2025 [facility] Ordering Provider LAB BLOOD ORDERABLES Final Result [facility] Center Contact Performing lab Unknown, [place] * HD KINETICS (04/18/2025) Pathologist [facility] % Urea Reduction 76 65 - 80 % [facility] 04/18/2025 04/19/2025 12: 29 PM EDT Narrative [facility] - 04/20/2025 Unless otherwise specified, test(s) performed at: [facility], [address] [place], [place] [id number] SUPERVISOR METAL FURNITURE FABRICATION: Praveen Ryan M.D. For any questions, please call customer service at FREQUENCY:MONTHLY Resulting Agency Comment Specimen source: Plasma us Perry Smith MD LAB BLOOD ORDERABLES Final Re sult Performing Organization Address [facility]/ZIP Co de Phone Number [facility] See order comments or contact performing lab Unknown, [place] * POST CHEMISTRY (04/18/2025) Pathologist [facility] BUN Post Dialysis 13 6 - 19 mg/dL [facility] 04/18/2025 04/19/2025 12: 29 PM EDT Narrative [facility] - 04/19/2025 Unless otherwise specified, test(s) performed at: [facility], [address] [place] [address] SUPERVISOR METAL FURNITURE FABRICATION: Praveen Ryan M.D. For any questions, please call customer service at FREQUENCY:MONTHLY Resulting Agency Comment Specimen source: Plasma Perry Smith MD LAB BLOOD ORDERABLES Final Re sult Performing Organization Address [facility] Co de Phone Number [facility] See order comments or contact performing lab Unknown, [place] * IMMUNO CHEMISTRY (04/18/2025) Pathologist [facility] Hep B Surface Ag Negative Negative [facility] 04/18/2025 04/19/2025 4:0 5 PM EDT Narrative Resulting Agency Comment Specimen source: Serum Perry Smith MD LAB BLOOD ORDERABLES Final Re sult Performing Organization Address [facility] Co de Phone Number [facility] See order comments or contact performing lab Unknown, [place] * (ABNORMAL) [facility] (04/18/2025) Ferritin 1,543(H) 10 - 291 ng/mL [facility] BUN 55(H) 6 - 19 mg/dL [facility] Creatinine 8.28(H) 0.60 - 1.30 mg/dL [facility] BUN/Creatinine Ratio 6.6(L) 10.0 - 20.0 [facility] Sodium 137 136 - 145 mEq/L [facility] Potassium 5.0 3.5 - 5.1 mEq/L [facility] Chloride 99 96 - 108 mEq/L [facility] Bicarbonate (CO2) 23 22 - 29 mEq/L [facility] Calcium 7.3(L) 8.4 - 10.2 mg/dL [facility] Corrected Calcium 7.4(L) 8.4 - 10.2 mg/dL [facility] Comment: Corrected Calcium is not equivalent to measured Ionized Calcium. Phosphorus 5.9(H) 2.6 - 4.5 mg/dL [facility] Calcium Phosphorus Product 43 0 - 54 [facility] Calcium Phosporus Product, Cor 44 0 - 54 [facility] Alkaline Phosphatase 139(H) 35 - 104 U/L [facility] ALT (SGPT) 19 7 - 52 U/L [facility] Albumin 3.9 3.5 - 5.2 g/dL [facility] Magnesium 2.1 1.6 - 2.6 mg/dL [facility] Iron 154 30 - 160 mcg/dL [facility] UIBC 72(L) 155 - 355 mcg/dL [facility] TIBC 226 185 - 515 mcg/dL [facility] Iron Saturation (TSat) 68(H) 20 - 55 % [facility] 04/18/2025 04/19/2025 4:0 5 PM EDT Narrative [facility] - 04/20/2025 Unless otherwise specified, test(s) performed at: [facility], [address] [place] [address] SUPERVISOR METAL FURNITURE FABRICATION: Praveen Ryan M.D. For any questions, please call customer service at FREQUENCY:MONTHLY Resulting Agency Comment Specimen source: Serum us Perry Smith MD LAB BLOOD ORDERABLES Edited R esult - Final [facility] See order comments or contact performing lab Unknown, [place] * (ABNORMAL) [facility] Chemistry (04/18/2025) PTH 380(H) 16 - 80 pg/mL [facility] 04/18/2025 04/19/2025 11: 51 AM EDT Narrative [facility] - 04/19/2025 Unless otherwise specified, test(s) performed at: [facility], [address] [place] [address] SUPERVISOR METAL FURNITURE FABRICATION: Praveen Ryan M.D. For any questions, please call customer service at FREQUENCY:MONTHLY Resulting Agency Comment Specimen source: Plasma Perry Smith MD LAB BLOOD ORDERABLES Final Re sult Performing Organization Address City/[facility] Co de Phone Number [facility] See order comments or contact performing lab Unknown, [place] * (ABNORMAL) HEMATOLOGY (04/18/2025) Hemoglobin 11.1(L) 12.0 - 16.0 g/dL [facility] Hemoglobin x 3 33.3(L) 36.0 - 48.0 % [facility] 04/18/2025 04/19/2025 9:4 2 AM EDT Narrative [facility] - 04/19/2025 Unless otherwise specified, test(s) performed at: [facility], [address] [place] [address] SUPERVISOR METAL FURNITURE FABRICATION: Praveen Ryan M.D. For any questions, please call customer service at FREQUENCY:MONTHLY Resulting Agency Comment Specimen source: Blood Perry Smith MD LAB BLOOD ORDERABLES Final Re sult Performing Organization Address City/[facility]/ZIP Co de Phone Number [facility] See order comments or contact performing lab Unknown, [place] documented in this encounter Visit Diagnoses Not on filedocumented in this encounter Care Teams Engineer Booster And Exhauster Relationship Specialty Start Date End Date Heather Longo PA-C [address] [place] [phone] PCP - General 06/20/19 documented as of this encounter
--- OUTSIDE RECORDS SUMMARY | 2025-04-24 12:05 | XMS_ITS | Encounter Summary ---
Author Organization [facility] [place], Address [address] [place] [address] Phone Care Team Providers Care Box Packer Name Role Phone Heather Longo PA-C Primary Care Provider Encounter Details Date Type Department Care Team (Late st Contact Info) Description 10/24/2021 Documentation Only [facility] [address] [place] [address] Sheyla Livingston [address] [place] [address] Social History Tobacco Use Types [...] visit [facility] - Vascular Access Center [address] [place] [phone] documented as of this encounter Visit Diagnoses Not on filedocumented in this encounter Care Teams Box Packer Relationship Specialty Start Date End Date Heatehr Longo PA-C [address] [place] [phone] PCP - General 06/20/19 documented as of this encounter
--- OUTSIDE RECORDS SUMMARY | 2025-04-24 12:05 | XMS_ITS | Encounter Summary ---
Author Organization [facility] [place], Address [address] [place] [address] Phone Care Team Providers Care Senior Technical Editor Name Role Phone Heather Longo PA-C Primary Care Provider [phone] Reason for Visit * Reason Comments Med Refill Encounter Details Date Type Department Care Team (Late Contact Info) Description 09/22/2024 Refill [facility] [address] [place] [phone] Lupillo Tang MD [address] [facility] [address] [place] [address] Social History Tobacco Use Types [...] visit [facility] [place] - [facility] Center [address] [place] [phone] documented as of this encounter Visit Diagnoses Not on filedocumented in this encounter Care Teams Senior Technical Editor Relationship Specialty Start Date End Date Heather Longo PA-C [address] [place] [phone] PCP - General 06/20/19 documented as of this encounter
--- OUTSIDE RECORDS SUMMARY | 2025-04-24 12:05 | XMS_ITS | Encounter Summary ---
Author Organization [facility], Address [address] [place] [address] Phone Care Team Providers Care Java Tech Lead Name Role Phone Heather Longo PA-C Primary Care Provider Encounter Details Date Type Department Care Team (Late st Contact Info) Description 05/13/2021 Telephone [facility] [address] [place] [phone] Carmen Ramirezsay [address] [place] [address] Social History Tobacco Use Types [...] visit [facility] [address] [place] [address] documented as of this encounter Visit Diagnoses Not on filedocumented in this encounter Care Teams Java Tech Lead Relationship Specialty Start Date End Date Heather Longo PA-C [address] [place] [address] PCP - General 06/20/19 documented as of this encounter
--- OUTSIDE RECORDS SUMMARY | 2025-04-24 12:05 | XMS_ITS | Clinical Summary ---
Author Organization [facility], Address [address] [place] [address] Phone Care Team Providers Care Diagnostic Technician Name Role Phone Heather Longo PA-C Primary [...] PAIN 30 g 11 2 Active B Vstdbyb-D-Avhmj Acid (Mojave Caps) 1 MG capsule TAKE 1 CAPSULE [...] tablet 3 3 Active ergocalciferol 1.25 MG (52688 UT) capsule Take 50,000 Units by mouth [...] for at least 30 minutes after.. Active cinacalcet (SENSIPAR) 90 MG tablet Take 90 mg by mouth 1 (one) time each day Active sulfamethoxazole -trimethoprim (BACTRIM,SEPTRA) 400-80 MG per tablet Take 1 tablet by mouth in the morning and 1 tablet in the evening. Active losartan (COZAAR) 50 MG tablet Take 100 mg by mouth 1 (one) time each day Active rosuvastatin (CRESTOR) 10 MG tablet TOME 1 TABLETA POR V A ORAL TODOS LOS D AL ACOSTARSE 5 Active Hospital, Clinic, or Other Facility Administered [...] mellitus 12/07/2008 Overview (11/14/2020): Endocrine: Dr. Timur Blanchard 50 units BID Humalog 10-15 with meals on dialysis days Humalog 20-25 with meals on non dialysis days Endocrine: Dr. Timur Blanchard 50 units BID Humalog 10-15 with meals on dialysis days Humalog 20-25 with meals on non dialysis days Encounters Date Type Department Care Team Description 04/20/2025 Treatment [facility] [address] [place] [phone] Ginger Dill FNP-C End stage renal disease; Dependence on renal dialysis 04/18/2025 Orders Only [facility] [address] [place] [phone] Perry Smith MD 04/11/2025 Orders Only [facility] [address] [address] Perry Smith MD 04/04/2025 Orders Only [facility] [address] [address] Perry Smith MD 04/04/2025 Treatment [facility] [address] [place] [address] Ginger Dill, HELP DESK ASSOCIATE-C End stage renal disease; Dependence on renal dialysis 03/28/2025 Orders Only [facility] [address] [address] Perry Smith MD 03/23/2025 Treatment [facility] [address] [place] [address] Ginger Dill, HELP DESK ASSOCIATE-C End stage renal disease; Dependence on renal dialysis 03/21/2025 Orders Only [facility] [address] [address] Perry Smith MD 03/16/2025 Treatment [facility] [address] [place] [address] Ginger Dill, HELP DESK ASSOCIATE-C End stage renal disease; Dependence on renal dialysis 03/14/2025 Orders Only [facility] [address] [address] Perry Smith MD 03/07/2025 Orders Only [facility] [address] [address] Perry Smith MD 03/07/2025 Treatment [facility] [address] [place] [address] Ginger Dill, HELP DESK ASSOCIATE-C End stage renal disease; Dependence on renal dialysis 02/28/2025 Orders Only [facility] [address] [address] Perry Smith MD 02/28/2025 Treatment [facility], [address] [place] [address] Ginger Dill FNP-C End stage renal disease; Dependence on renal dialysis 02/23/2025 Treatment [facility], [address] [place] [address] Lupillo Tang MD End stage renal disease; Dependence on renal dialysis; Type 2 diabetes mellitus with other diabetic kidney complication 02/21/2025 Orders Only [facility] [address] [address] Perry Smith MD 02/21/2025 Treatment [facility], [address] [place] [address] Ginger Dill FNP-C End stage renal disease; Dependence on renal dialysis 02/14/2025 Orders Only [facility] [address] [address] Perry Smith MD 02/07/2025 Orders Only [facility] [address] [address] Perry Smith MD 02/02/2025 Orders Only [facility] [address] [address] Perry Smith MD 02/02/2025 Treatment [facility], [address] [place] [address] Ginger Dill FNP-C End stage renal disease; Dependence on renal dialysis; Type 2 diabetes mellitus with other diabetic kidney complication 01/31/2025 Orders Only [facility] [address] [address] Perry Smith MD 01/30/2025 10:00 AM EDT Procedure visit [facility] [address] [place] [address] Austin Parker MD End stage renal disease (HCC) (Primary Dx); 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, subsequent encounter 01/26/2025 Treatment [facility], [address] [place] [phone] Ginger Dill FNP-C End stage renal disease; Dependence on renal dialysis; Type 2 diabetes mellitus with other diabetic kidney complication 01/24/2025 Orders Only [facility] [address] [place] [address] Perry Smith MD from Last 3 Months Social History Tobacco [...] Sign Reading Time Taken Comments Blood Pressure 160/86 01/30/2025 9:23 AM EDT Pulse 63 01/30/2025 9:23 AM EDT Temperature 36.3 C (97.3 F) 01/30/2025 9:23 AM EDT Respiratory Rate 16 01/30/2025 9:23 AM EDT Oxygen Saturation 97% 01/30/2025 9:23 AM EDT Inhaled Oxygen Concentration - - Weight 109 kg (240 lb) 01/30/2025 9:23 AM EDT Height 144.8 cm (4' 9 ) 01/30/2025 9:23 AM EDT Body Mass Index 51.94 01/30/2025 9:23 AM EDT Plan of Treatment Upcoming Encounters Date Type Department Care Team (Late st Contact Info) Description 08/30/2025 11:00 AM EST Procedure visit [facility] [address] [place] [address] [address] [place] [address] Health Maintenance Due Date Last Done Comments Breast Cancer Screening 1961 Hepatitis B Vaccine (1 of 5 - Risk Dialysis 4-dose series) 1981 Colorectal Cancer Screening: Annual FOBT 2010 Colorectal Cancer Screening: Colonoscopy 2010 Colorectal Cancer Screening: Sigmoidoscopy 2010 Diabetes: Ophthalmology Exam 08/31/2019 Diabetes: Pedal Pulse Checked 08/31/2019 Diabetes: Sensory Foot Exam 08/31/2019 Diabetes: Visual Foot Exam 08/31/2019 Influenza Vaccine (#1) 2025 4, 05/31/2023, 06/05/2022, Additional history exists Diabetes: Hemoglobin A1C 05/17/2025 025, 11/15/2024, 08/22/2024, Additional history exists Pneumococcal Vaccine: 50+ Ye ars (4 of 4 - PCV20 or PCV21) 06/13/2026 06/13/2021, 08/30/2017, 05/15/2016 Pneumococcal Vaccine: Peds ( 0 to 5 Years) and At-Risk Patients (6 to 49 Years) Discontinued 06/13/2021, 08/30/2017, 05/15/2016 Procedures Procedure Name Priority Date/Time Associated Diagnosis Comments [facility] LAB RESULTS Routine 04/18/2025 HD KINETICS Routine 04/18/2025 POST CHEMISTRY Routine 04/18/2025 IMMUNO CHEMISTRY Routine 04/18/2025 CHEMISTRY Routine 04/18/2025 CHEMISTRY Routine 04/18/2025 HEMATOLOGY Routine 04/18/2025 HEMATOLOGY Routine 04/11/2025 HEMATOLOGY Routine 04/04/2025 HEMATOLOGY Routine 03/28/2025 [facility] LAB RESULTS Routine 03/21/2025 IMMUNO CHEMISTRY Routine 03/21/2025 HD KINETICS Routine 03/21/2025 POST CHEMISTRY Routine 03/21/2025 CHEMISTRY Routine 03/21/2025 HEMATOLOGY Routine 03/21/2025 CHEMISTRY Routine 03/21/2025 HEMATOLOGY Routine 03/14/2025 HEMATOLOGY Routine 03/07/2025 HEMATOLOGY Routine 02/28/2025 HEMATOLOGY Routine 02/21/2025 [facility] LAB RESULTS Routine 02/14/2025 HD KINETICS Routine 02/14/2025 SPECIAL CHEMISTRY Routine 02/14/2025 SPECIAL CHEMISTRY Routine 02/14/2025 HEMATOLOGY Routine 02/14/2025 POST CHEMISTRY Routine 02/14/2025 IMMUNO CHEMISTRY Routine 02/14/2025 THYROIDS Routine 02/14/2025 CHEMISTRY Routine 02/14/2025 CHEMISTRY Routine 02/14/2025 HEMATOLOGY Routine 02/07/2025 CHEMISTRY Routine 02/02/2025 HEMATOLOGY Routine 01/31/2025 HEMATOLOGY Routine 01/24/2025 from Last 3 Months Results * HD KINETICS (04/18/2025) Only the most recent of3 resultswithin the time period is included. % Urea Reduction 76 65 - 80 % [facility] 04/18/2025 04/19/2025 12: 29 PM EDT Narrative [facility] - 04/20/2025 Unless otherwise specified, test(s) performed at: [facility], [address] [place] [id number] LAUNDRY MACHINE MECHANIC: Praveen Ryan M.D. For any questions, please call customer service at FREQUENCY:MONTHLY Resulting Agency Comment Specimen source: Plasma Perry Smith MD LAB BLOOD ORDERABLES Final Re sult Performing Organization Address [facility] Co de Phone Number [facility] See order comments or contact performing lab Unknown, [place] * POST CHEMISTRY (04/18/2025) Only the most recent of3 resultswithin the time period is included. Pathologist [facility] BUN Post Dialysis 13 6 - 19 mg/dL [facility] 04/18/2025 04/19/2025 12: 29 PM EDT Narrative [facility] - 04/19/2025 Unless otherwise specified, test(s) performed at: [facility], [address] [place] [id number] LAUNDRY MACHINE MECHANIC: Praveen Ryan M.D. For any questions, please call customer service at FREQUENCY:MONTHLY Resulting Agency Comment Specimen source: Plasma Perry Smith MD LAB BLOOD ORDERABLES Final Re sult Performing Organization Address City/[facility]/ZIP Co de Phone Number [facility] See order comments or contact performing lab Unknown, [place] * IMMUNO CHEMISTRY (04/18/2025) Only the most recent of3 resultswithin the time period is included. Pathologist [facility] Hep B Surface Ag Negative Negative [facility] 04/18/2025 04/19/2025 4:0 5 PM EDT Narrative Resulting Agency Comment Specimen source: Serum Perry Smith MD LAB BLOOD ORDERABLES Final Re sult Performing Organization Address [facility] Co de Phone Number [facility] See order comments or contact performing lab Unknown, [place] * (ABNORMAL) HEMATOLOGY (04/18/2025) Only the most recent of13 resultswithin the time period is included. [facility] Hemoglobin 11.1(L) 12.0 - 16.0 g/dL [facility] Hemoglobin x 3 33.3(L) 36.0 - 48.0 % [facility] 04/18/2025 04/19/2025 9:4 2 AM EDT Narrative [facility] - 04/19/2025 Unless otherwise specified, test(s) performed at: [facility], [address] [place] [address] LAUNDRY MACHINE MECHANIC: Praveen Ryan M.D. For any questions, please call customer service at FREQUENCY:MONTHLY Resulting Agency Comment Specimen source: Blood Perry Smith MD LAB BLOOD ORDERABLES Final Re sult Performing Organization Address [facility] Co de Phone Number [facility] See order comments or contact performing lab Unknown, [place] * (ABNORMAL) [facility] Chemistry (04/18/2025) Only the most recent of7 resultswithin the time period is included. Pathologist [facility] Ferritin 1,543(H) 10 - 291 ng/mL [facility] [...] 04/18/2025 04/19/2025 4:0 5 PM EDT Narrative [facility] - 04/20/2025 Unless otherwise specified, test(s) performed at: [facility], [address] [place] [id number] LAUNDRY MACHINE MECHANIC: Praveen Ryan M.D. For any questions, please call customer service at FREQUENCY:MONTHLY Resulting Agency Comment Specimen source: Serum Perry Smith MD LAB BLOOD ORDERABLES Edited R esult - Final [facility] See order comments or contact performing lab Unknown, [place] * [facility] Results (04/18/2025) Only the most recent of3 resultswithin the time period is included. spKt/V Gotch 1.76 [facility] nPCR_HD 1.05 [facility] WSTDKT/V 2.5 [facility] eNPCR 0.98 [facility] eKt/V Gotch 1.53 [facility] eKt/V ([place]) 1.47 [facility] eKdrt/V 1.53 [facility] PCR 63.90 [facility] spKt/V (Daugirdas II) 1.68 [facility] 04/18/2025 04/18/2025 [facility] [place] Provider LAB BLOOD ORDERABLES Final Result [facility] Contact Performing lab Unknown, [place] * THYROIDS (02/14/2025) TSH 2.213 0.300 - 3.000 mIU/L [facility] Comment: The reference range of 0.300-3.000 mIU/L is recommended by the [place] [employer]ocrinologists (AACE). An ESRD population contains about 20% of individuals with TSH of up to 20 mIU/L and normal free T4 consistent with non-thyroidal illness. ESRD patients with true hypothyroidism develop persistent values above 20 mIU/L. 02/14/2025 02/15/2025 10: 12 AM EDT Narrative Resulting Agency Comment Specimen source: Serum Perry Smith MD LAB BLOOD ORDERABLES Final Re sult Performing Organization Address [facility]/ZIP Co de Phone Number [facility] See order comments or contact performing lab Unknown, [place] * SPECIAL CHEMISTRY (02/14/2025) Only the most recent of2 resultswithin the time period is included. Creatine Kinase (CK/CPK) 60 30 - 223 U/L [facility] 02/14/2025 02/15/2025 10: 12 AM EDT Narrative [facility] - 02/15/2025 Unless otherwise specified, test(s) performed at: [facility], [address] [place] [id number] LAUNDRY MACHINE MECHANIC: Praveen Ryan M.D. For any questions, please call customer service at FREQUENCY:MONTHLY Resulting Agency Comment Specimen source: Serum Perry Smith MD LAB BLOOD BANK TEST ORDERABLE S Final Result [facility] See order comments or contact performing lab Unknown, [place] from Last 3 Months [place] Care Teams Diagnostic Technician Relationship Specialty Start Date End Date Heather Longo PA-C [address] [place] [address] PCP - General 06/20/19
--- OUTSIDE RECORDS SUMMARY | 2025-04-24 12:05 | XMS_ITS | Encounter Summary ---
Author Organization [facility], Address [address] [place] [address] Phone Care Team Providers Care Osha Inspector Name Role Phone Heather Longo PA-C Primary Care Provider [phone] Reason for Visit * Reason Comments Med Refill Encounter Details Date Type Department Care Team (Late Contact Info) Description 06/17/2023 Refill [facility] [address] [place] [phone] Lupillo Tang MD [address] [place] [address] Social History Tobacco Use Types [...] visit [facility] - [facility] Center [address] [place] [phone] documented as of this encounter Visit Diagnoses Not on filedocumented in this encounter Care Teams Osha Inspector Relationship Specialty Start Date End Date Heather Longo PA-C [address] [place] [phone] PCP - General 06/20/19 documented as of this encounter
--- OUTSIDE RECORDS SUMMARY | 2025-04-24 12:05 | XMS_ITS | Clinical Summary ---
Author Organization [facility] Address [address] [place] [address] Care Team Providers Care Overnight Babysitter Name Role Phone Heather Longo PA-C Primary Care Provider [phone] Source Comments PLEASE NOTE, if this patient is a minor, it may be UNLAWFUL to discuss sensitive information that is contained in these records (such as FAMILY PLANNING, MENTAL HEALTH or SUBSTANCE ABUSE) with the minor patient's parent or other person without the patient's specific authorization.RUFINO Allergies Active Allergy Reactions Criticality Noted Date Comments Amlodipine Rash,Swelling 11/01/2018 Lisinopril High 05/14/2023 Reports rash with this med Losartan High 05/14/2023 Olmesartan High 05/14/2023 Medications hydrALAZINE (APRESOLINE) 10 mg tablet TOME SINDHU TABLETA DOS VECES AL STEPHEN 180 Tablet 2 08/30/19 24 Active clindamycin-benzo yl peroxide (BENZACLIN) 1-5 % gelIndications:Ac ne, unspecified acne type Apply topically daily. 50 g 3 10/19/19 24 Active pen needle, diabetic (BD MARLENE 2ND GEN PEN NEEDLE) 32 gauge x ndleIndications:T ype 2 diabetes mellitus with chronic kidney disease, with long-term current use of insulin, unspecified CKD stage ([facility]) USE 5 TIMES A DAY WITH INSULIN 200 Each 11 10/19/19 24 Active VELPHORO 500 mg chewIndications:S tage 4 chronic kidney disease ([facility]) CHEW AND SWALLOW 2 TABLETS BY MOUTH 1 TO 2 TIMES DAILY 270 Tablet 1 12/23/19 24 Active carvediloL (COREG) 25 mg tablet TOME SINDHU TABLETA POR VIA ORAL DOS VECES AL STEPHEN CON LAS COMIDAS 180 Tablet 3 01/21/20 24 Active insulin syringe-needle U-100 0.3 mL 30 gauge x 1/2 syrgIndications:D M (diabetes mellitus), type 2 with renal complications ([facility]) Use 5 times per day, disp 100, 11 refills 100 Each 11 03/06/20 24 Active blood sugar diagnostic (FREESTYLE LITE STRIPS) stripsIndications :Type 2 diabetes mellitus with chronic kidney disease, with long-term current use of insulin, unspecified CKD stage ([facility]) USE 5 TIMES DAILY (INSURANCE MAX 3 TIMES DAILY) 200 Each 11 04/16/20 24 Active ondansetron ODT (ZOFRAN-ODT) 8 mg disintegrating tabletIndications :Nausea Take 1 Tablet by mouth every 8 (eight) hours as needed for nausea 30 Tablet 4 10/25/19 25 Active rosuvastatin (CRESTOR) 10 mg tabletIndications :Type 2 diabetes mellitus with chronic kidney disease, with long-term current use of insulin, unspecified CKD stage ([facility]) Take 1 Tablet by mouth nightly at bedtime 90 Tablet 3 10/25/19 25 Active lidocaine-priloca ine (EMLA) 2.5-2.5 % creamIndications: Stage 4 chronic kidney disease ([facility]) APLIQUE TOPICAMENTE CUANDO SEA NECESARIO PARA EL DOLOR 30 g 11/01/19 25 Active clindamycin phosphate (CLEOCIN T) 1 % lotionIndications :Folliculitis Apply topically 2 (two) times daily. 60 mL 2 03/01/20 25 Active cholecalciferol (VITAMIN D-3) 50 mcg (2,000 unit) capsule TOME 1 CAPSULA POR VIA ORAL [place] 90 Capsule 2 03/10/20 25 Active acetaminophen (TYLENOL 8 HOUR) 650 mg CR tabletIndications :Right hip pain Take 1 Tablet by mouth 3 (three) times daily. 270 Tablet 3 03/27/20 25 Active diclofenac sodium (VOLTAREN) 1 % gelIndications:Ri ght hip pain Apply 2 g topically 2 (two) times daily. 100 g 11 03/27/20 25 Active blood pressure test kit-largeIndicati ons:Essential hypertension Check BP daily. Dx: I10 Uncontrolled HTN. Lifetime Need. 1 Kit 12/21/19 19 025 Discontin ued(Outda yanelis-Remov ed from Med List (E-Cancel Not Sent)) sevelamer carbonate (RENVELA) 800 mg tabletIndications :Essential hypertension Take 1 Tab by mouth 3 (three) times daily with meals 90 Tab 11 12/21/19 19 025 Discontin ued(Outda yanelis-Remov ed from Med List (E-Cancel Not Sent)) acetaminophen (TYLENOL) 325 mg tablet Take 1 Tab by mouth every 6 (six) hours as needed for pain 60 Tab 11 12/21/19 19 025 Discontin ued(Cance lled) FREESTYLE LITE METER monitoring kit USE PAVAN LO INDICADO CUATRO VECES AL STEPHEN 1 Each 3 10/08/19 22 025 Discontin ued(Outda yanelis-Remov ed from Med List (E-Cancel Not Sent)) MISCELLANEOUS MEDICAL SUPPLY MISCIndications:T ype 2 diabetes mellitus with chronic kidney disease, with long-term current use of insulin, unspecified CKD stage ([facility]) by miscellaneous route daily. Diabetic shoes, disp 1 pair, dx diabetes with neuropathy 1 Each 01/05/20 23 025 Discontin ued(Outda yanelis-Remov ed from Med List (E-Cancel Not Sent)) MISCELLANEOUS MEDICAL SUPPLY MISC by miscellaneous route daily. Diabetic shoe inserts, disp 3 pairs, dx diabetes with neuropathy 3 Each 01/06/20 23 025 Discontin ued(Outda yanelis-Remov ed from Med List (E-Cancel Not Sent)) HOME CAPS 1 mg per capsuleIndication s:Stage 4 chronic kidney disease ([facility]),Dialysis patient ([facility] V24) Take 1 Capsule by mouth once daily 025 Discontin ued(Outda yanelis-Remov ed from Med List (E-Cancel Not Sent)) insulin degludec 100 unit/mL soln Inject into the skin. 025 Discontin ued(Outda yanelis-Remov ed from Med List (E-Cancel Not Sent)) Active Problems Problem Noted Date Diagnosed Date Dialysis patient ([facility]) on Wed, Wed, 03/29 Ovarian enlargement, left 08/01/2014 DM (diabetes mellitus), type 2 with renal complications ([facility]) 11/21/2013 Overview (07/10/2015): Endocrine: Dr. 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 Secondary hyperparathyroidis m, status post parathyroidectomy with transplant into the right brachioradialis muscle 11/21/2013 History of papillary adenocarcinoma of thyroid 0 03/13/2013 Encounters Date Type Department Care Team Description 04/17/2025 Interim Notes [address] [phone] Uriel Quinonez Community Health Worker 04/12/2025 Interim Notes [address] [phone] Uriel Quinonez [facility] [place] [facility] Worker 04/03/2025 Interim Notes [address] [phone] Uriel Quinonez [facility] Worker 04/03/2025 Interim Notes [address] [phone] Lynn Tamez 03/27/2025 3:20 PM EDT Office Visit [address] [phone] Heather Longo PA-C 03/06/2025 3:20 PM EDT Office Visit [address] [phone] Jing Martino 01/26/2025 7:40 AM EDT Telemedicine Visit [address] [phone] Heather Longo PA-C from Last 3 Months Immunizations Immunization Administration Dates Next Due Flu, Preservative Free 06/05/2022,05/30/2021 MODERNA COVID-19 VACCINE BIV ALENT, BLUE CAP, 6M+ 05/29/2022 Moderna COVID-19 Vaccine, re d cap blue label, 12+ Primary Series 06/20/2021,10/18/2020,09/20/2020 PNEUMOCOCCAL CONJUGATE PCV 13 08/30/2017 PNEUMOCOCCAL POLYSACCHARIDE PPV23 (Pneumovax 23) 06/13/2021,05/15/2016 Social History Tobacco Use Types Packs/Day Years Used Date Smoking Tobacco: Never Passive Smoke Exposure: Never Smokeless Tobacco: Never Tobacco Cessation:Counseling Given: Yes Alcohol Use Standard Drinks/Week Comments No 0 (1 standard drink = 0.6 oz pur e alcohol) Social Connections Answer Date Recorded How often do you feel lonely or isolated from th ose around you? 1 04/12/2025 Financial Resource Strain Answer Date R ecorded Hard to pay for: Transportation 2 04/12/2025 Stress Answer Date Recorded Do you feel these kinds of stress these days? 1 04/12/2025 Physical Activity Answer Date Recorded Physical Activity 0 07/03/2020 Food Insecurity Answer Date Recorded Hard to pay for: Food 1 04/12/2025 Transportation Needs Answer Date Record ed Hard to pay for: Transportation 2 04/12/2025 Housing Stability Answer Date Recorded Hard to pay for: Rent/Mortgage payment 1 04/12/2025 Safety and Environment Answer Date Juan rded Safety 0 07/03/2020 Utilities Answer Date Recorded Hard to pay for: Phone 2 Employment Answer Date Recorded Stress 0 07/03/2020 Comments No Sex and Gender Information Value Date Recorded Sex Assigned at Female 03/31/2018 2:10 PM PDT Legal Sex Female 11:36 AM PDT Gender Identity Female 03/31/2018 2:10 PM PDT Sexual Orientation Straight 03/31/2018 2: 10 PM PDT Last Filed Vital Signs Vital Sign Reading Time Taken Comments Blood Pressure 134/80 03/27/2025 3:11 PM EDT Pulse 74 03/27/2025 3:11 PM EDT Temperature 36.4 C (97.6 F) 03/27/2025 3:11 PM EDT Respiratory Rate 20 03/27/2025 3:11 PM EDT Oxygen Saturation 95% 03/27/2025 3:11 PM EDT Inhaled Oxygen Concentration - - Weight 113.4 kg (250 lb) 03/27/2025 3:11 PM EDT Height 147.3 cm (4' 10 ) 03/27/2025 3:11 PM EDT Body Mass Index 52.25 03/27/2025 3:11 PM EDT Plan of Treatment Upcoming Encounters Date Type Department Care Team (Late st Contact Info) Description 05/01/2025 11:20 AM EDT Office Visit [facility] [address] [place] [phone] Heather Longo PA-C [address] [place] [phone] 05/01/2025 3:40 PM EDT Office Visit [facility] [address] [place] [phone] Jing Martino [address] [place] [address] Health Maintenance Due Date Last Done Comments HPV Screening 1961 Hepatitis C Screening 1961 HIV Screening 1976 Imm-DTaP/Tdap/Td (1 - Tdap) 1980 CT Colonography 2006 Fecal DNA 2006 Flexible Sigmoidoscopy 2006 Imm-Zoster, Recombinant (1 of 2) 11/11/2011 FIT/gFOBT 07/31/2015 07/31/2014 (Declined) Anxiety Screening 01/01/2021 01/02/2020 Colonoscopy 01/20/2024 01/19/2019 Colorectal Cancer Screening 01/20/2024 Dental Perio Charting 08/14/2024 08/12/2023 Hemoglobin A1c 02/19/2025 08/22/2024, 07/0 09/2018, 05/11/2018, Additional history exists Dental Prophy 02/28/2025 08/29/2024, 07/0 04/2024, 09/09/2023 Imm-Influenza (#1) 2025 06/02/2024, 1 , 06/05/2022, Additional history exists Breast Cancer Screening (Mammogram) 08/28/2025 08/28/2023, 04/19/2018, 07/31/2014 (Declined) Dental BW 08/31/2025 08/29/2024, 08/12/2023 Dental Examination 08/31/2025 08/29/2024, 0 02/22/2024, 08/12/2023, Additional history exists Annual Wellness (Adult): Indicated (All Coverage) 10/24/2025 10/24/2024, 10/19/2023, 09/22/2022, Additional history exists Retinopathy Screening 03/13/2026 03/13/2025 , 11/25/2023, 07/31/2014 (Managed by Outside Provider) Diabetes Foot Exam 03/27/2026 03/27/2025, 0 12/19/2024, 09/22/2022, Additional history exists Tobacco Screening 03/27/2026 03/27/2025 Lipid Screening 04/02/2026 04/02/2025, 10/14 (Managed by Outside Provider), 07/31/2014 (Managed by Outside Provider) Imm-Pneumococcal 50+ (3 of 3 - PCV20 or PCV21) 06/13/2026 06/13/2021, 08/30/2017, 05/15/2016 Pap Smear 11/29/2027 11/28/2024, 09/16, 07/31/2014 (Declined) Dental FMX/Pano 08/14/2028 08/12/2023 Cervical Cancer Screening 11/28/2029 Pap + HPV 11/28/2029 11/28/2024, 09/29/2018 [id number] Discontinued 05/29/2022, 11/15, 06/20/2021, Additional history exists Alcohol and Drug Screen [...] 134/80(2024 3:11 PM EDT) No Jamison Thibodeaux, Kelsey HEMOGLOBIN A1C < 7.0 Result Component DM (diabetes mellitus), type 2 with renal complications ([facility]) 6.7( 12:00 AM EDT) No Jamison Thibodeaux, Kelsey Procedures Procedure Name Priority Date/Time Associated Diagnosis Comments IMAGING SCANNED DOCUMENT 04/01/2025 3:00 AM EDT IMAGING SCANNED DOCUMENT 04/01/2025 3:00 AM EDT REFERRAL SCANNED DOCUMENT 03/27/2025 3:00 AM EDT PATTERN AND CHAIN MAKER REPORT 3:00 AM EDT CASE PRESENTATION SUBS DTL & EXTENSIVE TX PLN Routine 03/06/2025 3:20 PM EDT Encounter for dental examination and cleaning with abnormal findings REFERRAL SCANNED DOCUMENT 02/01/2025 3:00 AM EDT REFERRAL SCANNED DOCUMENT 01/23/2025 3:00 AM EDT REFERRAL TO PODIATRY Routine 12/19/2024 3:00 AM EDT Type 2 diabetes mellitus with chronic kidney disease, with long-term current use of insulin, unspecified CKD stage ([facility]) THIN PREP IMAGE PAP + HPV RNA E6/E7 W/RFLX HPV 16, 18/45 Routine 11/28/2024 2:21 PM EDT Well woman exam BITEWINGS - TWO RADIOGRAPHIC IMAGES Routine 08/29/2024 10:20 AM EST Caries Encounter for dental examination and cleaning with abnormal findings Stage 3 grade C generalized periodontitis per AAP/EFP 2017 classification PROPHYLAXIS - ADULT Routine 08/29/2024 1 0:20 AM EST Caries Encounter for dental examination and cleaning with abnormal findings Stage 3 grade C generalized periodontitis per AAP/EFP 2017 classification PERIODIC ORAL EVALUATION ESTABLISHED PATIENT Routine 08/29/2024 10:20 AM EST Caries Encounter for dental examination and cleaning with abnormal findings Stage 3 grade C generalized periodontitis per AAP/EFP 2017 classification HEMOGLOBIN, GLYCOSYLATED (A1C) Routine 08/22/2024 HISTORIC MAMMOGRAM 08/28/2023 3: 00 AM EST COMP PERIODONTAL EVALUATION - NEW/EST PATIENT Routine 08/12/2023 2:20 PM EST Dental caries on smooth surface penetrating into dentin Full INTRAORAL - COMP SERIES OF RADIOGRAPHIC IMAGES Routine 08/12/2023 2:20 PM EST Dental caries on smooth surface penetrating into dentin COLONOSCOPY Routine 01/19/2019 1:16 PM EDT from Last 3 Months or Most Recently Relevant to Health Maintenance Results * IMAGING SCANNED DOCUMENT (04/01/2025 3:00 AM EDT) Only the most recent of2 resultswithin the time period is included. 04/01/2025 3:00 AM EDT [employer] PA-C SCAN IMAGING Final Result * REFERRAL SCANNED DOCUMENT (03/27/2025 3:00 AM EDT) Only the most recent of3 resultswithin the time period is included. 03/27/2025 3:00 AM EDT [employer] PA-C SCAN REFERRAL Final Result * PATTERN AND CHAIN MAKER REPORT (03/13/2025 3:00 AM EDT) 03/13/2025 3:00 AM EDT [employer] PA-C SCAN PROCEDURES Final Result * REFERRAL TO PODIATRY (12/19/2024 3:00 AM EDT) 12/19/2024 3:00 AM EDT [employer] Lukin PA-C REFERRAL Final Result * THIN PREP IMAGE PAP + HPV RNA E6/E7 W/RFLX HPV 16, 18/45 (11/28/2024 2:21 PM EDT) Pathologist [facility] CLINICAL INFORMATION See Note [facility] Comment:Routine exam LMP See Note [facility] Comment:PM PREV. PAP See Note [facility] Comment:NONE GIVEN PREV. BX See Note [facility] Comment:NONE GIVEN SOURCE See Note [facility] Comment:Cervix STATEMENT OF ADEQUACY See Note [facility] Comment: Satisfactory for evaluation. Endocervical/transformation zone component absent. INTERPRETATION/RESU LT See Note [facility] Comment: Cytology Results: Negative for intraepithelial lesion or malignancy. INFECTION See Note [facility] [employer] [facility] Comment: Fungal organisms morphologically consistent with [place] spp. COMMENT See Note [facility] Comment: This Pap test has been evaluated with computer assisted technology. DAIRY NUTRITIONIST See Note [facility] Comment: MPG, CT(ASCP) CT screening location: [place] [address] COMMENT [facility] HPV MRNA E6/E7 Not Detected Not Detected [facility] Comment: Methodology: Retina Subspecialist-Mediated Amplification This assay detects E6/E7 viral messenger RNA (mRNA) from 14 high-risk HPV types (16,18,31,33,35,39,45,51,52,56,58,59,66,68). Cervical sources are required for HPV testing. If a vaginal source from a patient who has had a total hysterectomy with removal of cervix was submitted, please contact the testing laboratory for alternative testing options. For additional information, please refer to http://education.Entigo/faq/MXK767s6 (This link if provided for information/ educational purposes only.) Swab Cervix uteri structure / Unknown 11/28/2024 2:21 PM EDT 11/29/2024 4:59 AM EDT Narrative [facility] - 11/30/2024 9:25 AM EDT EXPLANATORY NOTE: The Pap is a screening test for cervical cancer. It is not a diagnostic test and is subject to false negative and false positive results. It is most reliable when a satisfactory sample, regularly obtained, is submitted with relevant clinical findings and history, and when the Pap result is evaluated along with historic and current clinical information. us Gissel Roldan [facility] - PATHOLOGY AND CYTOLOGY AMBULATORY Final Result [facility] [address] [address], [facility] [address] [place] [address] * (ABNORMAL) HEMOGLOBIN, GLYCOSYLATED (A1C) (08/22/2024) HGB A1C 6.9(A) 4.0 - 5.6 % [facility] ([facility]) Blood Blood / Unknown 08/22/2024 Provider [facility] - BLOOD DRAW Final Result [facility] ([facility]) [address] [place] [address], * HISTORIC MAMMOGRAM (08/28/2023 3:00 AM EST) [...] and sigmoid colon. Colonoscopy in 3-5 tears Provider [facility] PROCEDURES Final Result from Last 3 Months or Most Recently Relevant to Health Maintenance Insurance [facility] [place] MEDICAID DENTAL [address] [facility] Care Teams Overnight Babysitter Relationship Specialty Start Date End Date Heather Longo PA-C [address] [place] [phone] PCP - General 02/28/13
--- OUTSIDE RECORDS SUMMARY | 2025-04-24 12:05 | XMS_ITS | Encounter Summary ---
Author Organization [facility], Address [address] [place] [address] Phone Care Team Providers Care Financial Accounting Manager Name Role Phone Heather Longo PA-C Primary Care Provider [phone] Reason for Visit * Reason Comments Med Refill Encounter Details Date Type Department Care Team (Late Contact Info) Description 12/12/2021 Refill [facility] [address] [place] [phone] Perry Smith MD [address] [place] [place] [address] Social History Tobacco Use Types [...] visit [facility] [address] [place] [phone] documented as of this encounter Visit Diagnoses Not on filedocumented in this encounter Care Teams Financial Accounting Manager Relationship Specialty Start Date End Date Heather Longo PA-C [address] [place] [phone] PCP - General 06/20/19 documented as of this encounter
== END 2025-04-24 11:03 | disposition home or self-care (01) ==
LOC: HO.ENCR 10:17
PROVIDERS: PCP Physician Assistant; Visit Provider Physician Assistant Medical
DX: E11.21 Type 2 diabetes mellitus with diabetic nephropathy (principal); N18.6 End stage renal disease; E11.65 Type 2 diabetes mellitus with hyperglycemia

== ENCOUNTER → 2025-04-24 10:17 | Outpatient (BNVA) | payer MEDICAID, SELFPAY | PROVIDERS: PCP Physician Assistant; Visit Provider Physician Assistant Medical | DX: E11.22 Type 2 diabetes mellitus with diabetic chronic kidney disease (principal); E11.21 Type 2 diabetes mellitus with diabetic nephropathy; N18.6 End stage renal disease; Z79.4 Long term (current) use of insulin; Z96.49 Presence of other endocrine implants; E11.65 Type 2 diabetes mellitus with hyperglycemia; E78.5 Hyperlipidemia, unspecified; Z68.43 Body mass index [BMI] 50.0-59.9, adult | CPT/HCPCS: 36415; 80061; 82947; 83036; 84450; 84460; 99212 ==

== ENCOUNTER 2025-04-24 11:13 | Outpatient (REF) | payer MEDICAID, SELFPAY ==
--- OUTSIDE RECORDS SUMMARY | 2025-04-19 20:00 | XMS_ITS ---
Author Name Ginger Dill Address [address] [place] [address] Phone [phone] Organization [facility], NA DOCUMENT DISCLAIMER Multiple document versions may exist, please be sure you review the latest version. The information in the [facility] Progress Note Document represents a providers documented clinical note containing certain health and medical information. It may not contain the complete medical history for the patient and should be independently verified. The represented time in the document is Eastern Time PROVIDER ROUNDING NOTE BASIC Patient:?FRANCES?XU,?1960,?64y,?F Dialysis?Location:?[facility] Attending?Entry Level Software Engineer:?Perry?Sarah Service?Date:?04/20/2025 Service?Provider:?Ginger?Fidelinacielo,?JUSTICE COURT DEPUTY CLERK I?met?face?to?face?with?the?patient?today. OVERVIEW The?patient?presented?with?ESRD?on?dialysis LAST?HOSPITALIZATION Discharge?Diagnosis:?N61.1?Abscess?of?the?breast?and?nipple Admission?Date?04/18/24 Discharge?Date?04/21/24 DIALYSIS?PRESCRIPTION ??IHD?3x?Week?Start?date:?04/06/25 ??Dialyzer:?FX?CorAL?60 ??BFR:?450 ??DFR:?Manual?500 ??Potassium:?2.0 ??Sodium:?138 ??EDW:?111 ??Duration:?4:00 ??Calcium:?2.50 ??Bicarb:?36 ??Rx?updated?on:?04/05/2025 TREATMENT?ASSESSMENT BP?Stand?Pre ??04/18/2025:?161/91 ??04/16/2025:?156/89 ??04/13/2025:?135/85 BP?Sit?Pre ??04/18/2025:?186/94 ??04/16/2025:?144/112 ??04/13/2025:?173/89 BP?Stand?Post ??04/18/2025:?144/69 ??04/16/2025:?120/74 ??04/13/2025:?110/76 BP?Sit?Post ??04/18/2025:?150/109 ??04/16/2025:?148/89 ??04/13/2025:?123/77 Tx?Duration ??04/18/2025:?4:05 ??04/16/2025:?3:57 ??04/13/2025:?3:44 Missed?Treatments 0?-?last?30?days 0?-?last?60?days FLUID?ASSESSMENT EDW?(kg) ??04/18/2025:?111.0 ??04/16/2025:?111.0 ??04/13/2025:?111.0 Weight?Pre?(kg) ??04/18/2025:?113.4 ??04/16/2025:?114.7 ??04/13/2025:?113.2 Weight?Post?(kg) ??04/18/2025:?110.9 ??04/16/2025:?110.7 ??04/13/2025:?111.0 PWV?(kg) ??04/18/2025:?-0.1 ??04/16/2025:?-0.3 ??04/13/2025:?0.0 UF?Rate?(mL/kg/hr) ??04/18/2025:?5.5 ??04/16/2025:?9.1 ??04/13/2025:?5.3 ADEQUACY?ASSESSMENT spKt/V,?URR ??04/18/2025:?-,?76.0 ??03/21/2025:?1.63,?75.0 ??02/14/2025:?1.65,?76.0 ACCESS?ASSESSMENT ??Access?Type:?AVGraft ??Access?SubType:?Synthetic?-?Standard?(PTFE) ??Access?Status:?Active?(In?Use)?-?01/30/2013 ??Access?Location:?Left?Thigh ??Created:?12/27/2012 Flow ??03/28/2025:?1124 ??02/21/2025:?1054 ??01/24/2025:?1098 ANEMIA?ASSESSMENT HGB,?TSAT ??04/18/2025:?11.1,?68.0 ??04/11/2025:?10.4,?- ??04/04/2025:?11.1,?- ?? Ferritin ??04/18/2025:?1543.0 ??03/21/2025:?1205.0 ??02/14/2025:?1519.0 Mircera,?IVP?(mcg) ??04/18/2025:?30 ??02/21/2025:?30 ??01/24/2025:?30 BMM?ASSESSMENT PTH,?Intact ??04/18/2025:?380.0 ??03/21/2025:?395.0 ??02/14/2025:?363.0 ?? Calcium,?Phosphorus ??04/18/2025:?7.3,?5.9 ??03/21/2025:?7.6,?6.0 ??02/14/2025:?7.7,?6.3 Vitamin?D?(Calcitriol)?Oral?(mcg) ??04/18/2025:?0.25 ??04/16/2025:?0.25 ??04/13/2025:?0.25 NUTRITION?ASSESSMENT Potassium,?Albumin ??04/18/2025:?5.0,?3.9 ??03/21/2025:?5.2,?4.1 ??02/14/2025:?5.3,?4.1 ?? eNPCR ??03/21/2025:?0.94 ??02/14/2025:?1.2 ??01/17/2025:?1.11 DIAGNOSIS Chief?Complaint:?N18.6?End?stage?renal?disease Comments:?Patient?seen?and?examined.?VSS?with?no?complaints& #160;to?offer.?S1,?S2.?RRR,?LS?CTA?BL.?Access?patent. Patient?is?stable. Patient?data?updated?04/20/2025?at?2:46?PM Signed?By:?Aniyah,?Ginger,?JUSTICE COURT DEPUTY CLERK??on?04/20/2025?2:46:11?PM END OF DOCUMENT
[2025-04-24 13:35] LABS: Alanine Aminotransferase 24 U/L (0-31); Aspartate Amino Transferase 23 U/L (5-31); Cholesterol 200 mg/dL (<200); HDL Cholesterol 35 mg/dL (>40); Triglycerides 142 mg/dL (<150)
--- OUTSIDE RECORDS SUMMARY | 2025-04-24 13:35 | XMS_ITS ---
Author Name Irma, Clinic Address [address] [place] [address] Phone [phone] Organization [facility] e, NA DOCUMENT DISCLAIMER Multiple document versions may exist, please be sure you review the latest version. The information in the [facility] Continuity of Care Document represents a summary [...] breath R06.02 Active December 21, 2008 Other long term care administrator (current) drug therapy Z79.899 Ac tive December [...] Dosage Route Start Date End Date Stat Acetaminophen PRN every 4 hours 650 mg Oral June 09, 2024 June 08, 2025 Active Acetaminophen PRN every 4 hours 650 mg Oral June 09, 2024 June 08, 2025 Active Heparin Sodium (Porcine) 1,000 Units/mL Systemic Bolus, 3X Week, Total treatment minutes 240 5000 units Intravenous - push July 24, 2024 July 23, 2025 Active Loperamide PRN-december repeat x1 2 mg Oral May 24, 2024 May 23, 2025 Active Mircera Every 4 weeks 30 mcg Intravenous - push April 18, 2025 April 17, 2026 Active Vitamin D (Calcitriol) Oral Every Treatment 0.25 mcg Oral January 22, 2025 January 21, 2026 Active Home Medications Medication Instructions Dosage Route [...] Sign Value Date / Time Blood Pressure-sitting 167/87 mmHg April 23, 2025 11:14 AM Blood Pressure-standing 150/70 mmHg [facility] 2024 11:14 AM Heart Rate 62 beats per minute April 11:14 AM Respiratory Rate 18 breaths per minute April 23, 2025 11:14 AM Temperature 98.6 deg. F April 23 11:14 AM Weight Vital Sign Value Date / Time Estimated Dry Weight 111 kg April 06, 2025 11:59 PM Pre-Dialysis 114.80 kg April 23 11:14 AM Post-Dialysis 110.70 kg April 23 11:14 AM Other Other Value Date / Time Height 150 cm June 26 12:00 AM Body Mass Index 49.33 kg/m2 April 11, 2025 04:41 PM LAB RESULTS Hematology Result Type Result Value Relevant Referen ce Range Interpretation Date Ferritin 1306 ng/mL 10 - 291 ng/mL High November 15, 2024 WBC (No Diff) 7.96 1000/mcL 4.80 - 10.80 1000/mcL - November 15, 2024 UIBC/TIBC 85 mcg/dL 155 - 355 mcg/dL Low November TIBC (Calc) 210 mcg/dL 185 - 515 mcg/dL - November Transferrin Sat. (Calc) 60 % 20 - 55 % High November 15, 2024 TIBC (Calc) 223 mcg/dL 185 - 515 mcg/dL - December 20, 2024 UIBC/TIBC 88 mcg/dL 155 - 355 mcg/dL Low December 20, 2024 Transferrin Sat. (Calc) 61 % 20 - 55 % High December 20, 2024 Ferritin 1269 ng/mL 10 - 291 ng/mL High December 20 25 Transferrin Sat. (Calc) 56 % 20 - 55 % High January 17, 2025 UIBC/TIBC 102 mcg/dL 155 - 355 mcg/dL Low January 17, 2025 TIBC (Calc) 230 mcg/dL 185 - 515 mcg/dL - January Ferritin 1548 ng/mL 10 - 291 ng/mL High January 17 Hemoglobin x 3 31.8 % 36.0 - 48.0 % Low January Hemoglobin x 3 31.8 % 36.0 - 48.0 % Low January Hemoglobin x 3 33.3 % 36.0 - 48.0 % Low January Retic HGB 35.4 pg 25.4 - 31.8 pg High February 14 Hemoglobin x 3 32.1 % 36.0 - 48.0 % Low February RDW 13.3 % 11.5 - 14.5 % - February 14 Iron 143 mcg/dL 30 - 160 mcg/dL - February 14, 2025 Transferrin Sat. (Calc) 60 % 20 - 55 % High February 14, 2025 UIBC/TIBC 96 mcg/dL 155 - 355 mcg/dL Low February 14, 2025 TIBC (Calc) 239 mcg/dL 185 - 515 mcg/dL - February MCHC 33.9 g/dL 30.0 - 36.0 g/dL - February 14, 2025 MCH 33.9 pg 27.0 - 31.0 pg High February 14 WBC (No Diff) 6.81 1000/mcL 4.80 - 10.80 1000/mcL - February 14, 2025 Ferritin 1519 ng/mL 10 - 291 ng/mL High February 14 Hemoglobin x 3 32.4 % 36.0 - 48.0 % Low February Hemoglobin x 3 32.4 % 36.0 - 48.0 % Low February Hemoglobin x 3 34.8 % 36.0 - 48.0 % Low February Hemoglobin x 3 33 % 36.0 - 48.0 % Low February Hemoglobin x 3 33.6 % 36.0 - 48.0 % Low March 21, 2025 Ferritin 1205 ng/mL 10 - 291 ng/mL High March 21, 2025 TIBC (Calc) 222 mcg/dL 185 - 515 mcg/dL - March 21, 2025 Transferrin Sat. (Calc) 55 % 20 - 55 % - March 21, 2025 UIBC/TIBC 99 mcg/dL 155 - 355 mcg/dL Low March Iron 123 mcg/dL 30 - 160 mcg/dL - March Hemoglobin x 3 32.4 % 36.0 - 48.0 % Low March 28, 2025 HGB 10.8 g/dL 12.0 - 16.0 g/dL Low March 162024 HGB 11.1 g/dL 12.0 - 16.0 g/dL Low March 172024 Hemoglobin x 3 33.3 % 36.0 - 48.0 % Low April 04, 2025 HGB 10.4 g/dL 12.0 - 16.0 g/dL Low March 172024 Hemoglobin x 3 31.2 % 36.0 - 48.0 % Low April 11, 2025 Transferrin Sat. (Calc) 68 % 20 - 55 % High April 18 TIBC (Calc) 226 mcg/dL 185 - 515 mcg/dL - 2024 UIBC/TIBC 72 mcg/dL 155 - 355 mcg/dL Low 2024 Iron 154 mcg/dL 30 - 160 mcg/dL - April 18, 2025 Hemoglobin x 3 33.3 % 36.0 - 48.0 % Low 2024 HGB 11.1 g/dL 12.0 - 16.0 g/dL Low 2024 Ferritin 1543 ng/mL 10 - 291 ng/mL High April 18, 2025 Metabolic/Renal Result Type Result Value Relevant Referen ce Range Interpretation Date Hemoglobin A1c 6.9 % 4.8 - 5.9 % High November 15, 2024 Chloride 98 mEq/L 96 - 108 mEq/L - February 14 Bicarbonate 19 mEq/L 22 - 29 mEq/L Low February 14 URR, Calc 76 % 65 - 80 % - February 14, 2025 BUN, Post 17 mg/dL 6 - 19 mg/dL - February 14 BUN/Creat Ratio 8.6 10.0 - 20.0 Low February 14, 2025 Sodium 137 mEq/L 136 - 145 mEq/L - February 14, 2025 BUN 70 mg/dL 6 - 19 mg/dL High February 14 Creatinine, Serum 8.14 mg/dL 0.60 - 1.30 mg/dL High February 14, 2025 Potassium 5.3 mEq/L 3.5 - 5.1 mEq/L High February 14, 2025 Hemoglobin A1c 6.7 % 4.8 - 5.9 % High February 14, 2025 BUN, Post 13 mg/dL 6 - 19 mg/dL - March 21, URR, Calc 75 % 65 - 80 % - March 21 Bicarbonate 24 mEq/L 22 - 29 mEq/L - March 21, 2025 Chloride 101 mEq/L 96 - 108 mEq/L - March 21, 2025 BUN 52 mg/dL 6 - 19 mg/dL High March 21 BUN/Creat Ratio 6.3 10.0 - 20.0 Low March Creatinine, Serum 8.28 mg/dL 0.60 - 1.30 mg/dL High March 21, 2025 Potassium 5.2 mEq/L 3.5 - 5.1 mEq/L High March Sodium 138 mEq/L 136 - 145 mEq/L - March BUN 55 mg/dL 6 - 19 mg/dL High April Sodium 137 mEq/L 136 - 145 mEq/L - April 18, 2025 BUN/Creat Ratio 6.6 10.0 - 20.0 Low 2024 Bicarbonate 23 mEq/L 22 - 29 mEq/L - April 18, 2025 Chloride 99 mEq/L 96 - 108 mEq/L - April 18, 2025 Potassium 5.0 mEq/L 3.5 - 5.1 mEq/L - April 18, 2025 Creatinine, Serum 8.28 mg/dL 0.60 - 1.30 mg/dL High April 18, 2025 URR, Calc 76 % 65 - 80 % - April 18, 2025 BUN, Post 13 mg/dL 6 - 19 mg/dL - April HD Adequacy Result Type Result Value Relevant Referen ce Range Interpretation Date Krt/V 0.00 No Reference Ran ge Provided - November 15, 2024 Krt/V 0.00 No Reference Ran ge Provided - December 20, 2024 Krt/V 0.00 No Reference Ran ge Provided - January 17, 2025 Krt/V 0.00 No Reference Ran ge Provided - February 14, 2025 wstdKt/V, residual 0.0 No Reference Range Provided - February 14, 2025 spKt/V ([place]ird[place] II) 1.65 No Reference Range Provided - February 14, 2025 wstdKt/V 2.5 No Reference Ran ge Provided - February 14, 2025 spKt/V Got 1.73 No Reference Ran ge Provided - February 14, 2025 wstdKt/V without residual 2.5 No Reference Range Provided - February 14, 2025 eKt/V ([place]) 1.43 No Reference Range Provided - February 14, 2025 spKt/V (Daugirdas II) 1.63 No Reference Range Provided - March 21, 2025 Krt/V 0.00 No Reference Ran ge Provided - March 21, 2025 eKt/V ([place]) 1.43 No Reference Range Provided - March 21, 2025 wstdKt/V 2.5 No Reference Ran ge Provided - March 21, 2025 wstdKt/V, residual 0.0 No Reference Range Provided - March 21, 2025 wstdKt/V without residual 2.5 No Reference Range Provided - March 21, 2025 spKt/V Got 1.72 No Reference Ran ge Provided - March 21, 2025 wstdKt/V, residual 0.0 No Reference Range Provided - April 18, 2025 Krt/V 0.00 No Reference Ran ge Provided - April 18, 2025 wstdKt/V without residual 2.5 No Reference Range Provided - April 18, 2025 eKt/V ([place]) 1.47 No Reference Range Provided - April 18, 2025 spKt/V (Daugirdas II) 1.68 No Reference Range Provided - April 18, 2025 wstdKt/V 2.5 No Reference Ran ge Provided - April 18, 2025 spKt/V Got 1.76 No Reference Ran ge Provided - April 18, 2025 Bone/Mineral Result Type Result Value Relevant Referen ce Range Interpretation Date Magnesium 2.0 mg/dL 1.6 - 2.6 mg/dL - April 24, 2024 Vitamin D 25 Hydroxy 57.0 ng/mL 30 - 100 ng/mL - May 17, 2024 Magnesium 2.2 mg/dL 1.6 - 2.6 mg/dL - May, 2023 Magnesium 2.1 mg/dL 1.6 - 2.6 mg/dL - June 21, 2024 Magnesium 2.1 mg/dL 1.6 - 2.6 mg/dL - July 19, 2024 Magnesium 2.3 mg/dL 1.6 - 2.6 mg/dL - August, 2024 Magnesium 2.3 mg/dL 1.6 - 2.6 mg/dL - September 20, 2024 Magnesium 2.3 mg/dL 1.6 - 2.6 mg/dL - October 18, 2024 PTH-Intact, Plasma 336 pg/mL 16 - 80 pg/mL High Nov Magnesium 2.2 mg/dL 1.6 - 2.6 mg/dL - November 15, 2024 Magnesium 2.2 mg/dL 1.6 - 2.6 mg/dL - December 20, PTH-Intact, Plasma 398 pg/mL 16 - 80 pg/mL High December 20, 2024 PTH-Intact, Plasma 320 pg/mL 16 - 80 pg/mL High Jan Magnesium 2.3 mg/dL 1.6 - 2.6 mg/dL - January 17, 2025 Calcium, Total 8.1 mg/dL 8.4 - 10.2 mg/dL Low February 02, 2025 Ca x P Product 49 0 - 54 - February 14, 025 Alkaline Phosphatase 135 U/L 35 - 104 U/L High 2024 Calcium, Total 7.7 mg/dL 8.4 - 10.2 mg/dL Low February 14, 2025 Phosphorus 6.3 mg/dL 2.6 - 4.5 mg/dL High February 14, 2025 Magnesium 2.3 mg/dL 1.6 - 2.6 mg/dL - February 14, 2025 Corrected Ca x P Product 48 0 - 54 - February 14, 2025 PTH-Intact, Plasma 363 pg/mL 16 - 80 pg/mL High Feb PTH-Intact, Plasma 395 pg/mL 16 - 80 pg/mL High Mar Ca x P Product 46 0 - 54 - March 21, 2025 Phosphorus 6.0 mg/dL 2.6 - 4.5 mg/dL High March Alkaline Phosphatase 145 U/L 35 - 104 U/L High Au josé miguel 2024 Magnesium 2.2 mg/dL 1.6 - 2.6 mg/dL - March Corrected Ca x P Product 45 0 - 54 - March 21, 2025 Calcium, Total 7.6 mg/dL 8.4 - 10.2 mg/dL Low Augu st 2024 PTH-Intact, Plasma 380 pg/mL 16 - 80 pg/mL High Sep tember 2024 Alkaline Phosphatase 139 U/L 35 - 104 U/L High Se ptember 2024 Ca x P Product 43 0 - 54 - April 18, 2025 Phosphorus 5.9 mg/dL 2.6 - 4.5 mg/dL High April 18, 2025 Calcium, Total 7.3 mg/dL 8.4 - 10.2 mg/dL Low Apr emb2024 Corrected Ca x P Product 44 0 - 54 - April 18 Magnesium 2.1 mg/dL 1.6 - 2.6 mg/dL - April 18, 2025 Liver/Nutrition Result Type Result Value Relevant Reference Range Interpre tat LDH 137 U/L 118 - 273 U/L - November 15 025 Albumin (BCG) 4.1 g/dL 3.5 - 5.2 g/dL - February SGPT (ALT) 25 U/L 7 - 52 U/L - February 14, 2025 LDH 148 U/L 118 - 273 U/L - February 14 25 eNPCR 1.20 No Reference Ran ge Provided - February 14, 2025 eNPCR 0.94 No Reference Ran ge Provided - March 21, 2025 SGPT (ALT) 17 U/L 7 - 52 U/L - March 21 Albumin (BCG) 4.1 g/dL 3.5 - 5.2 g/dL - March 21, 2025 eNPCR 0.98 No Reference Ran ge Provided - April 18, 2025 SGPT (ALT) 19 U/L 7 - 52 U/L - April 18, 2025 Albumin (BCG) 3.9 g/dL 3.5 - 5.2 g/dL - 2024 Cardiovascular Result Type Result Value Relevant Reference Range Interpre tation Creatine Kinase 60 U/L 30 - 223 U/L - February Lipid Result Type Result Value Relevant Referen ce Range Interpretation Date Triglycerides 240 mg/dL 0 - 149 mg/dL High November Cholesterol, Total 197 mg/dL 0 - 199 mg/dL - Nov Cholesterol, Total 212 mg/dL 0 - 199 mg/dL High Feb Triglycerides 171 mg/dL 0 - 149 mg/dL High February 14, 2025 Immunochemistry Result Type Result Value Relevant Reference Range Interpre tation Date HCV s/co ratio 0.07 0.00 - 0.79 - May HCV s/co ratio 0.19 0.00 - 0.79 - November 15, 2024 Endocrinology/Thyroid Result Type Result Value Relevant Referen ce Range Interpretation Date TSH 3rd Generation 1.485 mIU/L 0.300 - 3.000 mIU/L - May 17, 2024 TSH 3rd Generation 1.357 mIU/L 0.300 - 3.000 mIU/L - August 18, 2024 TSH 3rd Generation 2.164 mIU/L 0.300 - 3.000 mIU/L - November 15, 2024 TSH 3rd Generation 2.213 mIU/L 0.300 - 3.000 mIU/L - February 14, 2025 Trace Elements Result Type Result Value Relevant Reference Range Interpre tation Date Aluminum < 5 mcg/L 0 - 10 mcg/L - May 17, 2024 Infectious Diseases Result Type Result Value Relevant Referen ce Range Interpretation Date Hep B Surface Ab (anti-HBs) > 1000 mIU/mL No Reference Range Provided - November 15, 2024 HCV Ab (anti-HCV) Nonreactive No Reference R eyad Provided - November 15, 2024 Hep B Surface Ag (HBsAg) Negative No Reference Range Provided - April 18, 2025 DIALYSIS PRESCRIPTION Conventional Hemodialysis Data Element Value Order Date/Time April 06, 2025 Frequency 3X Week Treatment Days MonWedFri Dialyzer FX CorAL 60 Treatment Time (Total Minutes) 240 min Blood Flow Rate (mL/min) 450 mL/min Dialysate Flow Rate Manual 500 Estimated Dry Weight 111 kg Dialysate Concentrate 2.0 K, 2.50 Ca, 1. 0 Mg, 100 Dextrose ([id number]) Sodium (mEq/L) 138 mEq/L Bicarb Machine Setting (mEq/L) 36 mEq/L Dialysis Access Hemodialysis-AV [place] t-Synthetic - Standard (PTFE), Left Thigh, Unknown [...] Moderna COVID-19 Vaccine, Do se 1 of September 20, 2020 0.5 mL Intramuscular Completed [...] (mL/min) Dialysate Dialyzer Dialysis Access Meds Admin [facility] 2024 Weight 113.40 kg Weight 110.90 kg 04:05:00 450 2.0 K, 2.50 Ca, 1.0 Mg, 100 Dextrose ([id number]) FX CorAL 60 Blood Pressure-sitting 186/94 mmHg Blood Pressure-sit ting 150/109 mmHg Blood Pressure-standing 161/91 mmHg Blood Pressure-st anding 144/69 mmHg Heart Rate 69 beats per minute Heart Rate 78 beats per minute Respiratory Rate 18 breaths per minute Respiratory Rate 18 breaths per minute Temperature 97.6 deg. F Temperature 98.0 deg. F April 20, 2025 Weight 113.00 kg Weight 111.20 kg 04:04:00 450 2.0 K, 2.50 Ca, 1.0 Mg, 100 Dextrose ([id number]) FX CorAL 60 Hemodialysis-AV [place]-Synthetic - Standard (PTFE), Left Thigh, Unknown Access Placed on December 27, 2012 Heparin Sodium (Porcine) 1,000 Units/mL Systemic; 5000units,Intravenous - push Loperamide; 2mg,Oral Loperamide; 2mg,Oral Vitamin D (Calcitriol) Oral; 0.25mcg,Oral Blood Pressure-sitting 152/72 mmHg Blood Pressure-sit ting 156/77 mmHg Blood Pressure-standing 160/95 mmHg Blood Pressure-st anding 134/74 mmHg Heart Rate 72 beats per minute Heart Rate 73 beats per minute Respiratory Rate 18 breaths per minute Respiratory Rate 18 breaths per minute Temperature 97.4 deg. F Temperature 96.0 deg. F April 23, 2025 Weight 114.80 kg Weight 110.70 kg 03:58:00 460 2.0 K, 2.50 Ca, 1.0 Mg, 100 Dextrose ([id number]) FX CorAL 60 Hemodialysis-AV Graft-Synthetic - Standard (PTFE), Left Thigh, Unknown Access Placed on December 27, 2012 Heparin Sodium (Porcine) 1,000 Units/mL Systemic; 5000units,Intravenous - push Loperamide; 2mg,Oral Loperamide; 2mg,Oral Vitamin D (Calcitriol) Oral; 0.25mcg,Oral Blood Pressure-sitting 160/73 mmHg Blood Pressure-sit ting 167/87 mmHg Blood Pressure-standing 157/90 mmHg Blood Pressure-st anding 150/70 mmHg Heart Rate 68 beats per minute Heart Rate 62 beats per minute Respiratory Rate 18 breaths per minute Respiratory Rate 18 breaths per minute Temperature 96.8 deg. F Temperature 98.6 deg. F
--- OUTSIDE RECORDS SUMMARY | 2025-04-24 13:36 | XMS_ITS | Clinical Summary ---
Author Organization [facility] Address [address] [place] [address] Phone Care Team Providers Care Industrial Safety And Health Specialist Name Role Phone Ruddy Longo Primary Care Provider [phone] Allergies Active Allergy Reactions Criticality Noted Date [...] Take 50 mcg by mouth. 4 Active insulin degludec (TRESIBA) 100 unit/mL injection Inject into the skin. Active insulin lispro 100 unit/mL injection Inject as directed. Active sucroferric oxyhydroxide (Velphoro) 500 mg chewable tablet CHEW AND SWALLOW 2 TABLETS BY MOUTH 1 TO 2 TIMES DAILY 4 Active ammonium lactate (AmLactin) 12 % lotion Apply topically if needed for dry skin. 400 g 5 026 Active ketoconazole (NIZORAL) 2 % cream Apply topically 1 (one) time each day. 30 g 2 5 Active diclofenac (VOLTAREN) 1 % topical gel Apply 2 g topically 2 times daily. 5 Active rosuvastatin (CRESTOR) 10 mg tablet Take 1 tablet (10 mg total) by mouth 1 (one) time each day. 5 Active hydrALAZINE (APRESOLINE) 25 mg tablet Take 1 tablet (25 mg total) by mouth 2 (two) times a day. 60 each 11 5 026 Active hydrALAZINE (APRESOLINE) 10 mg tablet Take 1 tablet (10 mg total) by mouth 2 (two) times a day. 4 025 Discontinu ed(Stop Taking at Discharge) insulin glargine U-300 (Toujeo SoloStar U-300 Insulin) 300 unit/mL (1.5 mL) CONCENTRATED injection pen Inject 25 Units into the skin. 2 025 Discontinu ed(Discont inued by another clinician) ammonium lactate (AmLactin) 12 % lotion Apply topically if needed for dry skin. 400 g 5 025 Discontinu ed(Duplica te order) ammonium lactate (AmLactin) 12 % lotion Apply topically if needed for dry skin. 400 g 5 025 Discontinu ed(Duplica te order) Active Problems Problem Noted Date Diagnosed Date Chest pain 04/01/2025 Encounters Date Type Department Care Team Description 04/01/2025 12:28 PM EDT - 04/02/2025 9:39 AM EDT Hospital Encounter [facility] Emergency [address] [place] [address] Jordy Escobar MD Jones, Christopher, MD Alam, Aroosa, MD Chest pain, unspecified type (Primary Dx) Discharge Disposition: Home or Self Care 03/27/2025 9:00 AM EDT Office Visit Orthopedic Surgery - [place] [address] [phone] Will Suero DPM Xerosis of skin (Primary Dx); Tinea pedis of both feet; Dermatophytosis of nail; Corns and callosities; Pain in toe of right foot; Pain in toe of left foot; Metatarsalgia of both feet; Fissured skin; Type II diabetes mellitus with peripheral circulatory disorder ([facility] V24, [facility] V28); Diabetic mononeuropathy simplex ([facility] V24, [facility] V28) from Last 3 Months Medical History Medical History Date Comments Renal disorder Hypertension Diabetes mellitus ([facility] V24, [facility] V28) Social History Tobacco Use Types Packs/Day Years Used Date Smoking Tobacco: Never Smokeless Tobacco: Never Tobacco Cessation:Counseling Given: Not Answered Comments Unknown Sex and Gender Information Value Date Recorded Sex Assigned at Not on file Legal Sex Female 4:09 PM EST Gender Identity Not on file Sexual Orientation Not on file Obstetrics History Last Filed Vital Signs Vital Sign Reading Time Taken Comments Blood Pressure 137/76 04/02/2025 6:20 AM EDT Pulse 70 04/02/2025 6:20 AM EDT Temperature 36.4 C (97.5 F) 04/02/2025 6:20 AM EDT Respiratory Rate 16 04/02/2025 6:20 AM EDT Oxygen Saturation 97% 04/02/2025 6:20 AM EDT Inhaled Oxygen Concentration - - Weight 114 kg (250 lb 6.4 oz) 04/01/2025 11:52 A M EDT Height 147.3 cm (4' 10 ) 04/01/2025 11:52 AM EDT Body Mass Index 52.33 04/01/2025 11:52 AM EDT Plan of Treatment Upcoming Encounters Date Type Department Care Team (Late st Contact Info) Description 06/19/2025 9:45 AM EST Office Visit Orthopedic Surgery - [place] [address] [phone] Will Suero DPM [address] [phone] Health Maintenance Due Date Last Done Comments Diabetes: Annual Foot Exam 11/11/1971 Diabetes: Annual Retina Eye Exam 11/11/1971 DTaP,Tdap,and Td Vaccines (1 - Tdap) 1980 Zoster Vaccines (1 of 2) 11/11/2011 Cervical Cancer Screening: Pap Smear 09/29/2021 09/29/2018 RSV Immunization Adult Patients (1 - Risk 60-74 years 1-dose series) 2021 Colorectal Cancer Screening: Colonoscopy 07/15/2022 HIV Screening 07/15/2022 Hepatitis C Screening 07/15/2022 Social Influencers of Health Screening 07/15/2022 Diabetes: Annual Urine Albumin-Creatinine Ratio (uACR) 05/24/2024 Depression Screening 08/16/2024 Diabetes: Blood Sugar Control Test (HGBA1C) 02/19/2025 08/22/2024 COVID-19 Vaccine ( season) 2025 05/29/2022, 12/11/2021, 06/20/2021, Additional history exists Influenza Vaccine (#1) 2025 , 05/31/2023, 06/05/2022, Additional history exists Breast Cancer Screening 08/30/2025 08/30/2023 Diabetes: Annual GFR (Glomerular Filtration Rate) 04/02/2026 04/02/2025, 04/01/2025 Hypertension/CHF/CAD Annual BMP Blood Test 04/02/2026 04/02/2025, 04/01/2025 Pneumococcal Vaccine: 50+ Years (3 of 3 - PCV20 or PCV21) 06/13/2026 06/13/2021, 08/30/2017, 05/15/2016 Cholesterol Screening (Lipid Panel) 04/02/2030 04/02/2025 HIB Vaccines Aged Out No longer eligi [...] Procedure Name Priority Date/Time Associated Diagnosis Comments ECG ANNOTATED 04/03/2025 POCT GLUCOSE BLOOD Routine 04/02/2025 8: 37 AM EDT CBC WITH AUTO DIFFERENTIAL Routine 04/02/2025 4:45 AM EDT THYROID STIMULATING HORMONE WITH REFLEX TO FREE T4 AND FREE T3 Routine 04/02/2025 4:45 AM EDT LIPID PANEL WITH REFLEX TO DIRECT LDL Routine 04/02/2025 4:45 AM EDT TROPONIN I HIGH SENSITIVITY Routine 04/02/2025 4:45 AM EDT CBC AND DIFFERENTIAL Routine 04/02/2025 4:45 AM EDT BASIC METABOLIC PANEL Routine 04/02/2025 4:45 AM EDT TROPONIN I HIGH SENSITIVITY STAT 04/01/2025 5:[address] HEAD WO CONTRAST STAT 04/01/2025 2 :44 PM EDT XR CHEST 2 VIEWS STAT 04/01/2025 1:01 PM EDT D-DIMER STAT Add-on 04/01/2025 12:53 PM EDT TROPONIN I HIGH SENSITIVITY STAT 04/01/2025 12:53 PM EDT ACTIVATED PARTIAL THROMBOPLASTIN TIME STAT 04/01/2025 12:53 PM EDT PROTHROMBIN TIME WITH INR STAT 04/01/2025 12:53 PM EDT MAGNESIUM STAT 04/01/2025 12:53 PM EDT VENOUS BLOOD GAS STAT 04/01/2025 12:5 3 PM EDT COMPREHENSIVE METABOLIC PANEL STAT 04/01/2025 12:53 PM EDT CBC WITH AUTO DIFFERENTIAL STAT 04/01/2025 12:53 PM EDT B-TYPE NATRIURETIC PEPTIDE STAT 04/01/2025 12:53 PM EDT CBC AND DIFFERENTIAL STAT 04/01/2025 12:53 PM EDT ECG 12-LEAD STAT 04/01/2025 11:50 AM EDT RALPH SCREENING DIGITAL Routine 08/30/2023 9:08 AM EST Encounter for screening mammogram for malignant neoplasm of breast from Last 3 Months or Most Recently Relevant to Health Maintenance Results * ECG-Annotated (04/03/2025) us Provider Onbase ECG ORDERABLES Final Result * (ABNORMAL) POCT Glucose, blood (04/02/2025 8:37 AM EDT) Glucose POCT 131(H) 70 - 100 mg/dL 04/02/2025 9:39 AM EDT [facility] Blood Capillary blood specimen / Unknown 04/02/2025 8:37 AM EDT 04/02/2025 9:39 AM EDT Luz Maria Molina MD LAB POINT OF CARE TE ST DOCKED DEVICE UNSOLICITED RESULTS Final Result [facility] [address] [place] [address], [place] [phone] * Troponin I high sensitivity (04/02/2025 4:45 AM EDT) Only the most recent of3 resultswithin the time period is included. [facility] High Sensitivity Troponin I 13 <=54 ng/L LAB CHEMISTRY METHOD 04/02/2025 6:33 AM EDT [facility] Blood Venous blood specimen / Unknown Venipuncture / Unknown 04/02/2025 4:45 AM EDT 04/02/2025 6:00 AM EDT Narrative [facility] - 04/02/2025 6:33 AM EDT High levels of biotin in samples may falsely decrease hsTroponin values. Use caution when interpreting hsTroponin results in patients taking biotin who exhibit renal impairment (eGFR <60) or in patients taking more than 20 mg/day of biotin. [employer] [facility] AL LAB BLOOD ORDERABLES Final Resu lt Performing Organization Address [facility]/ZIP Co de Phone Number [facility] [address] [place] [address], [place] [phone] * Thyroid stimulating hormone with reflex to free t4 and free t3 (04/02/2025 4:45 AM EDT) [facility] TSH 2.09 0.40 - 4.00 mcIU/mL LAB CHEMISTRY METHOD 04/02/2025 8:09 AM EDT [facility] Blood Venous blood specimen / Unknown Venipuncture / Unknown 04/02/2025 4:45 AM EDT 04/02/2025 6:00 AM EDT [facility] LAB BLOOD ORDERABLES Final Resu lt [facility] [address] [place] [address], [place] [phone] * (ABNORMAL) Lipid panel with reflex to direct LDL (04/02/2025 4:45 AM EDT) [facility] Cholesterol 180 0 - 200 mg/dL LAB CHEMISTRY METHOD 04/02/2025 6:40 AM EDT [facility] Triglycerides 183(H) 0 - 150 mg/dL LAB CHEMISTRY METHOD 04/02/2025 6:40 AM [facility] HDL 34(L) >=40 mg/dL LAB CHEMISTRY METHOD 04/02/2025 6:40 AM EDT [facility] LDL Calculated 109(H) 0 - 100 mg/dL LAB CHEMISTRY METHOD 04/02/2025 6:40 AM EDT [facility] Comment:Estimated LDL Calcul ated using equation: Total cholesterol - HDL cholesterol - (Triglycerides/5) VLDL Cholesterol Aadl 36.6 mg/dL LAB CHEMISTRY METHOD 04/02/2025 6:40 AM [facility] Non HDL Chol. (LDL+VLDL) 146(H) <145 mg/dL LAB CHEMISTRY METHOD 04/02/2025 6:40 AM EDT [facility] Chol/HDL Ratio 5.3(H) 0.0 - 4.4 LAB CHEMISTRY METHOD 04/02/2025 6:40 AM [facility] Blood Venous blood specimen / Unknown Venipuncture / Unknown 04/02/2025 4:45 AM EDT 04/02/2025 6:00 AM EDT Carlyn DUNNE LAB BLOOD ORDERABLES Final Resu lt [facility] [address] [place] [address], * (ABNORMAL) CBC auto differential (04/02/2025 4:45 AM EDT) Only the most recent of2 resultswithin the time period is included. WBC 7.8 4.8 - 10.8 K/mcL LAB HEMETOLOGY METHOD 04/02/2025 6:27 AM EDT [facility] RBC 3.30(L) 3.80 - 4.80 M/mcL LAB HEMETOLOGY METHOD 04/02/2025 6:27 AM [facility] Hemoglobin 10.6(L) 11.5 - 16.0 g/dL LAB HEMETOLOGY METHOD 04/02/2025 6:27 AM [facility] Hematocrit 32.5(L) 35.0 - 47.0 % LAB HEMETOLOGY METHOD 04/02/2025 6:27 AM [facility] MCV 99.1(H) 79.0 - 98.0 FL LAB HEMETOLOGY METHOD 04/02/2025 6:27 AM [facility] MCH 32.3(H) 27.0 - 32.0 pcg LAB HEMETOLOGY METHOD 04/02/2025 6:27 AM [facility] MCHC 32.6 32.0 - 37.0 g/dL LAB HEMETOLOGY METHOD 04/02/2025 6:27 AM [facility] RDW 12.5 11.0 - 15.0 % LAB HEMETOLOGY METHOD 04/02/2025 6:27 AM [facility] Platelets 166 130 - 400 K/mcL LAB HEMETOLOGY METHOD 04/02/2025 6:27 AM [facility] MPV 9.4 7.0 - 11.0 FL LAB HEMETOLOGY METHOD 04/02/2025 6:27 AM [facility] NRBC 0.0 <1.0 % LAB HEMETOLOGY METHOD 04/02/2025 6:27 AM [facility] NRBC Absolute 0.00 <0.10 K/mcL LAB HEMETOLOGY METHOD 04/02/2025 6:27 AM [facility] Neutrophils Relative 60.1 % LAB HEMETOLOGY METHOD 04/02/2025 6:27 AM [facility] Lymphocytes Relative 25.5 % LAB HEMETOLOGY METHOD 04/02/2025 6:27 AM [facility] Monocytes Relative 9.4 % LAB HEMETOLOGY METHOD 04/02/2025 6:27 AM [facility] Eosinophils Relative 3.6 % LAB HEMETOLOGY METHOD 04/02/2025 6:27 AM [facility] Basophils Relative 0.8 % LAB HEMETOLOGY METHOD 04/02/2025 6:27 AM [facility] Immature Granulocytes Relative 0.6 % LAB HEMETOLOGY METHOD 04/02/2025 6:27 AM [facility] Neutrophils Absolute 4.71 1.50 - 7.00 K/mcL LAB HEMETOLOGY METHOD 04/02/2025 6:27 AM [facility] Lymphocytes Absolute 2.00 1.00 - 5.00 K/mcL LAB HEMETOLOGY METHOD 04/02/2025 6:27 AM [facility] Monocytes Absolute 0.74 0.20 - 1.00 K/mcL LAB HEMETOLOGY METHOD 04/02/2025 6:27 AM [facility] Eosinophils Absolute 0.28 0.00 - 0.50 K/mcL LAB HEMETOLOGY METHOD 04/02/2025 6:27 AM [facility] Basophils Absolute 0.06 0.00 - 0.20 K/mcL LAB HEMETOLOGY METHOD 04/02/2025 6:27 AM [facility] Immature Granulocytes Absolute 0.05(H) 0.00 - 0.03 K/mcL LAB HEMETOLOGY METHOD 04/02/2025 6:27 AM [facility] Blood Venous blood specimen / Unknown Venipuncture / Unknown 04/02/2025 4:45 AM EDT 04/02/2025 6:00 AM EDT us Will Deng MD LAB BLOOD ORDERABLES Final Result [facility] [address] [place] [address], * (ABNORMAL) Basic metabolic panel (04/02/2025 4:45 AM EDT) Sodium 137 133 - 145 mmol/L LAB CHEMISTRY METHOD 04/02/2025 7:01 AM [facility] Potassium 4.8 3.5 - 5.5 mmol/L LAB CHEMISTRY METHOD 04/02/2025 7:01 AM [facility] Chloride 104 96 - 110 mmol/L LAB CHEMISTRY METHOD 04/02/2025 7:01 AM [facility] CO2 24 21 - 32 mmol/L LAB CHEMISTRY METHOD 04/02/2025 7:01 AM [facility] Anion Gap 9 3 - 11 LAB CHEMISTRY METHOD 04/02/2025 7:01 AM [facility] Glucose 104(H) 70 - 100 mg/dL LAB CHEMISTRY METHOD 04/02/2025 7:01 AM [facility] BUN 53(H) 5 - 25 mg/dL LAB CHEMISTRY METHOD 04/02/2025 7:01 AM [facility] Creatinine 8.68(H) 0.50 - 1.10 mg/dL LAB CHEMISTRY METHOD 04/02/2025 7:01 AM [facility] eGFR 5(L) >=60 mL/min/1. 73m2 LAB CHEMISTRY METHOD 04/02/2025 7:01 AM [facility] Comment:Calculation based on the Chronic Kidney Disease Epidemiology Collaboration (CKD-EPI) equation refit without adjustment for race. BUN/Creatinine Ratio 6.1 LAB CHEMISTRY METHOD 04/02/2025 7:01 AM [facility] Calcium 7.7(L) 8.5 - 10.5 mg/dL LAB CHEMISTRY METHOD 04/02/2025 7:01 AM EDT [facility] Blood Venous blood specimen / Unknown Venipuncture / Unknown 04/02/2025 4:45 AM EDT 04/02/2025 6:00 AM EDT us Will Deng MD LAB BLOOD ORDERABLES Final Result [facility] [address] [place] [address], * CT Head wo Contrast (04/01/2025 2:44 PM EDT) Anatomical Region Laterality Modality Head and Neck Computed Tomogra phy 04/01/2025 2:50 PM EDT Impressions 04/01/2025 2:53 PM EDT Impression: 1. Mildly limited exam due to motion artifact. 2. No acute hemorrhage or intracranial [place] effect identified. [place] ([id number]) -------- FINAL REPORT -------- Dictated By: Ginna Coreas Dictated Date: 04/01/2025 14:50 ET Assigned Physician: Ginna Coreas Reviewed and Electronically Signed By: Ginna Coreas Signed Date: 04/01/2025 14:53 ET Workstation ID: [id number] Transcribed By: Self Edit Transcribed Date: 04/01/2025 14:50 ET Narrative 04/01/2025 2:53 PM EDT History: Hypertensive emergency. Comparison: No comparison imaging at this institution. Technique: Contiguous axial images were obtained at 2.5 mm intervals through the posterior fossa and at 5 mm intervals through the remainder of the brain without intravenous contrast. DLP: 1617.71 mGy/cm [employer] VCT Iterative reconstruction technique Findings: The study is mildly degraded by patient motion. The ventricular system is normal in size and configuration. Mild cortical involutional changes are noted. Rose-white differentiation is maintained. There is patchy deep white matter hypodensity, unaccompanied by mass effect or hemorrhage. No abnormal intra- or extra-axial masses or fluid collections are seen. There is no evidence of acute intracranial hemorrhage. The paranasal sinuses and mastoids are well pneumatized. The calvarium is intact. Procedure Note Ginna Coreas MD - 04/01/2025 History: Hypertensive emergency. Comparison: No comparison imaging at this institution. Technique: Contiguous axial images were obtained at 2.5 mm intervalsthrough the posterior fossa and at 5 mm intervals through the remainder ofthe brain without intravenous contrast. DLP: 1617.71 mGy/cm [employer] VCT Iterative reconstruction technique Findings: The study is mildly degraded by patient motion. The ventricular system is normal in size and configuration. Mild corticalinvolutional changes are noted. Rose-white differentiation is maintained.There is patchy deep white matter hypodensity, unaccompanied by masseffect or hemorrhage. No abnormal intra- or extra-axial masses or fluid collections are seen.There is no evidence of acute intracranial hemorrhage. The paranasal sinuses and mastoids are well pneumatized. The calvarium isintact. IMPRESSION: Impression: 1. Mildly limited exam due to motion artifact. 2. No acute hemorrhage or intracranial mass effect identified. Telerad VIBHA ([id number]) -------- FINAL REPORT -------- Dictated By: Ginna Coreas Dictated Date: 04/01/2025 14:50 ET Assigned Physician: Ginna Coreas Reviewed and Electronically Signed By: Ginna Coreas Signed Date: 04/01/2025 14:53 ET Workstation ID: [id number] Transcribed By: Self Edit Transcribed Date: 04/01/2025 14:50 ET Jordy Escobar MD IMG CT PROCEDURES Final Result * XR Chest 2 Views (04/01/2025 1:01 PM EDT) Anatomical Region Laterality Modality Body Radiographic Evie ging 04/01/2025 1:23 PM EDT Impressions 04/01/2025 1:24 PM EDT Impression: 1. Stable cardiomegaly. 2. No active pulmonary process identified. [place]elerad [place] ([id number]) -------- FINAL REPORT -------- Dictated By: Ginna Coreas Dictated Date: 04/01/2025 13:23 ET Assigned Physician: Ginna Coreas Reviewed and Electronically Signed By: Ginna Coreas Signed Date: 04/01/2025 13:24 ET Workstation ID: [id number] Transcribed By: Self Edit Transcribed Date: 04/01/2025 13:23 ET Narrative 04/01/2025 1:24 PM EDT History: Dyspnea. Comparison: 04/20/24, thoracic CT 04/18/24 Findings: PA and lateral views. Marked enlargement of the cardiac silhouette is again demonstrated. Atherosclerotic calcification is seen in the aortic arch. The pulmonary vascularity appears within normal limits. The lungs are grossly clear. The costophrenic angles are sharp. Thoracic disc degenerative changes are seen. Procedure Note Ginna Coreas MD - 04/01/2025 History: Dyspnea. Comparison: 04/20/24, thoracic CT 04/18/24 Findings: PA and lateral views. Marked enlargement of the cardiac silhouette isagain demonstrated. Atherosclerotic calcification is seen in the aorticarch. The pulmonary vascularity appears within normal limits. The lungsare grossly clear. The costophrenic angles are sharp. Thoracic discdegenerative changes are seen. IMPRESSION: Impression: 1. Stable cardiomegaly. 2. No active pulmonary process identified. Telerad VIBHA ([id number]) -------- FINAL REPORT -------- Dictated By: Ginna Coreas Dictated Date: 04/01/2025 13:23 ET Assigned Physician: Ginna Coreas Reviewed and Electronically Signed By: Ginna Coreas Signed Date: 04/01/2025 13:24 ET Workstation ID: [id number] Transcribed By: Self Edit Transcribed Date: 04/01/2025 13:23 ET us Chelle DUNNE IMG XR PROCEDURES Final Resul t * APTT (04/01/2025 12:53 PM EDT) aPTT 37.4 24.1 - 39.3 sec LAB COAGULATION METHOD 04/01/2025 1:54 PM EDT [facility] Blood Venous blood specimen / Unknown Venipuncture / Unknown 04/01/2025 12:53 PM EDT 04/01/2025 1:18 PM EDT us Jordy Escobar MD LAB BLOOD ORDERABLES Final Resul t Performing Organization Address [facility]UST Co de Phone Number [facility] [address] [place] [address], [place] [phone] * Protime-INR (04/01/2025 12:53 PM EDT) [facility] Protime 11.6 10.6 - 13.9 sec LAB COAGULATION METHOD 04/01/2025 1:54 PM EDT [facility] INR 0.9 LAB COAGULATION METHOD 04/01/2025 1:54 PM EDT [facility] Blood Venous blood specimen / Unknown Venipuncture / Unknown 04/01/2025 12:53 PM EDT 04/01/2025 1:18 PM EDT us Jordy Escobar MD LAB BLOOD ORDERABLES Final Resul t Performing Organization Address [facility] Co de Phone Number [facility] [address] [place] [address], [place] [phone] * (ABNORMAL) D-Dimer (04/01/2025 12:53 PM EDT) [facility] D-Dimer, Quant (D-DU) 500(H) <=230 ng/mL DDU LAB COAGULATION METHOD 04/01/2025 10:07 PM EDT [facility] Blood Venous blood specimen / Unknown Venipuncture / Unknown 04/01/2025 12:53 PM EDT 04/01/2025 1:18 PM EDT Narrative [facility] - 04/01/2025 10:07 PM EDT D-Dimer <230 ng/mL (D-Dimer units) is the threshold for exclusion of DVT/PE. D-Dimer may be elevated in: Critically ill, severely infected, trauma patients, DIC, acute CVA, acute WA, unstable angina, AF, old age, , and smoking. D-Dimer may be decreased with: Initiation of heparin therapy and oral anticoagulants. Will Deng MD LAB BLOOD ORDERABLES Final Result Performing Organization Address [facility]/ZIP Co de Phone Number [facility] [address] [place] [address], * B-type natriuretic peptide (04/01/2025 12:53 PM EDT) BNP 94 <=100 pcg/mL LAB CHEMISTRY METHOD 04/01/2025 2:00 PM EDT [facility] Blood Venous blood specimen / Unknown Venipuncture / Unknown 04/01/2025 12:53 PM EDT 04/01/2025 1:18 PM EDT Chelle DUNNE LAB BLOOD ORDERABLES Final Re sult Performing Organization Address [facility] Co de Phone Number [facility] [address] [place] [address], * Magnesium (04/01/2025 12:53 PM EDT) Magnesium 2.2 1.9 - 2.6 mg/dL LAB CHEMISTRY METHOD 04/01/2025 1:50 PM EDT [facility] Blood Venous blood specimen / Unknown Venipuncture / Unknown 04/01/2025 12:53 PM EDT 04/01/2025 1:18 PM EDT Jordy Escobar MD LAB BLOOD ORDERABLES Final Resul t Performing Organization Address [facility] Co de Phone Number [facility] [address] [place] [address], * (ABNORMAL) Venous blood gas (04/01/2025 12:53 PM EDT) pH, Perez 7.31(L) 7.32 - 7.42 pH 04/01/2025 1:22 PM EDT [facility] pCO2, Perez 53(H) 41 - 51 mmHg 04/01/2025 1:22 PM EDT [facility] pO2, Perez 30 25 - 40 mmHg 04/01/2025 1:22 PM EDT [facility] HCO3, Venous 23.6 22.0 - 26.0 mmol/L 04/01/2025 1:22 PM EDT [facility] O2 Sat, Perez 52.9 % 04/01/2025 1:22 PM EDT [facility] Base Excess, Perez -0.3 -2.0 - 2.0 mmol/L 04/01/2025 1:22 PM EDT [facility] Blood Venous blood specimen / Unknown Venipuncture / Unknown 04/01/2025 12:53 PM EDT 04/01/2025 1:16 PM EDT us Jordy Escobar MD LAB BLOOD ORDERABLES Final Resul t [facility] [address] [place] [address], * (ABNORMAL) Comprehensive Metabolic Panel (CMP) (04/01/2025 12:53 PM EDT) Sodium 138 133 - 145 mmol/L LAB CHEMISTRY METHOD 04/01/2025 2:07 PM EDT [facility] Potassium 5.0 3.5 - 5.5 mmol/L LAB CHEMISTRY METHOD 04/01/2025 2:07 PM EDT [facility] Chloride 104 96 - 110 mmol/L LAB CHEMISTRY METHOD 04/01/2025 2:07 PM EDT [facility] CO2 26 21 - 32 mmol/L LAB CHEMISTRY METHOD 04/01/2025 2:07 PM [facility] Anion Gap 8 3 - 11 LAB CHEMISTRY METHOD 04/01/2025 2:07 PM [facility] Glucose 129(H) 70 - 100 mg/dL LAB CHEMISTRY METHOD 04/01/2025 2:07 PM [facility] BUN 43(H) 5 - 25 mg/dL LAB CHEMISTRY METHOD 04/01/2025 2:07 PM [facility] Creatinine 7.29(H) 0.50 - 1.10 mg/dL LAB CHEMISTRY METHOD 04/01/2025 2:07 PM [facility] Comment:Results verified by repeat testing eGFR 6(L) >=60 mL/min/1. 73m2 LAB CHEMISTRY METHOD 04/01/2025 2:07 PM [facility] Comment:Calculation based on the Chronic Kidney Disease Epidemiology Collaboration (CKD-EPI) equation refit without adjustment for race. BUN/Creatinine Ratio 5.9 LAB CHEMISTRY METHOD 04/01/2025 2:07 PM [facility] Calcium 8.1(L) 8.5 - 10.5 mg/dL LAB CHEMISTRY METHOD 04/01/2025 2:07 PM [facility] AST (SGOT) 20 10 - 42 unit/L LAB CHEMISTRY METHOD 04/01/2025 2:07 PM [facility] ALT (SGPT) 25 10 - 60 unit/L LAB CHEMISTRY METHOD 04/01/2025 2:07 PM [facility] Alkaline Phosphatase 199(H) 42 - 121 unit/L LAB CHEMISTRY METHOD 04/01/2025 2:07 PM [facility] Total Protein 7.3 6.0 - 8.0 g/dL LAB CHEMISTRY METHOD 04/01/2025 2:07 PM [facility] Albumin 3.7 3.2 - 5.0 g/dL LAB CHEMISTRY METHOD 04/01/2025 2:07 PM EDT [facility] Total Bilirubin 0.4 0.0 - 1.4 mg/dL LAB CHEMISTRY METHOD 04/01/2025 2:07 PM EDT [facility] Blood Venous blood specimen / Unknown Venipuncture / Unknown 04/01/2025 12:53 PM EDT 04/01/2025 1:18 PM EDT Jordy Escobar MD LAB BLOOD ORDERABLES Final Resul t [facility] [address] [place] [address], [place] [phone] * ECG 12 lead (04/01/2025 11:50 AM EDT) Ventricular Rate ECG 63 BPM G[facility] Atrial Rate 63 BPM GEM[facility] P-R Interval 172 ms GEMUSE QRS Duration 90 ms GEMUSE Q-T Interval 436 ms GEMUSE QTc 446 ms GEMUSE P Wave [place] 49 degrees GEMUSE R [place] 13 degrees GEMUSE T [place] 19 degrees GEMUSE ECG Interpretation Normal sinus rhythm Normal ECG When compared with ECG of 20-APR-2024 01:54, No significant change was found Confirmed by IMER WILSON ([id number]) on 04/01/2025 6:20:23 PM GEMUSE 04/01/2025 11:5 0 AM EDT 04/01/2025 6:20 PM EDT Jordy Escobar MD ECG ORDERABLES Final Result GEMUSE * RALPH SCREENING DIGITAL (08/30/2023 9:08 AM EST) Anatomical Region Laterality Modality Mammography 08/26/2023 8:54 AM EST Narrative 08/30/2023 9:08 AM EST [facility] Diagnostic Imaging Department [address] [place] [address] Patient: FRANCES MCNAIR /Age/Sex: 1960 - 62 - F Unit#: [id number] Location/Status: SPDIMAM/REG CLI Mnemonic/Ordering Site: [facility] Ordering Physician: RUDDY LONGO [facility] Screening Digital - 08/28/23 - 1145 Report Status:Signed EXAM: [facility] Screening Digital EXAM DATE AND TIME: 08/28/2023 11:45 AM HISTORY: Annual screening COMPARISON: Multiple exams dating back to 2010 TECHNIQUE: Bilateral digital breast tomosynthesis was performed in the CC and MLO projections. Computer aided detection with [employer] Access 3D 3.1 was employed. TISSUE DENSITY: b. There are scattered areas of fibroglandular density. FINDINGS: No suspicious masses, grouped microcalcifications, or areas of architectural distortion are seen. The skin and vascularity are unremarkable. IMPRESSION: Stable mammographic appearance of the breasts. No evidence of malignancy is seen. A negative mammogram in the presence of a clinically suspicious palpable abnormality does not preclude the possibility of malignancy or alter the indications for biopsy. BI-RADS: Category 1: Negative RECOMMENDATION(S): 1: Routine screening mammogram BILATERAL in 1 year. 3341F, 7025F Dictating Physician: MAREK AARON MD Electronically Signed by: MAREK AARON MD Dic Date/Time: 08/30/23905 Sign date/Time: 08/30/23 0908 Procedure Note Marek Aaron MD - 04/03/2024 [facility] Diagnostic Imaging Department [address] [place] [id number] Patient: EDER MCNAIRANA /Age/Sex: 1960 - 62 - F Unit#: [id number] Location/Status: SPDIMAM/REG CLI Mnemonic/Ordering Site: [facility] Ordering Physician: RUDDY LONGO [facility] Screening Digital - 08/28/23 - 1145 Report Status:Signed EXAM: [facility] Screening Digital EXAM DATE AND TIME: 08/28/2023 11:45 AM HISTORY: Annual screening COMPARISON: Multiple exams dating back to 2010 TECHNIQUE: Bilateral digital breast tomosynthesis was performed in the CCand MLO projections. 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 TISSUE DENSITY: b. There [...] Routine screening mammogram BILATERAL in 1 year. 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 Do not modify or discontinue any currently active code status orders. Care Teams Industrial Safety And Health Specialist Relationship Specialty Start Date End Date Ruddy Longo PA [facility] [place] [address] PCP - General Internal Medicine 05/10/13
== END 2025-04-24 11:14 | disposition home or self-care (01) ==
LOC: HO.10HDL 11:13
PROVIDERS: Visit Provider Physician Assistant Medical
DX: Z13.89 Encounter for screening for other disorder (principal)
CPT/HCPCS: 36415; 80061; 84450; 84460